=== PATIENT | female | born 1930 | race Caucasian/White ===

== ENCOUNTER → 2016-10-21 | Outpatient (CLI) | payer OTHER ==
[~2016-10-21] MED LIST: ALBU1AER9 INH; CETI10TA84 PO; CHON150C PO; LOSA100T65 PO; NUTRTAB48 PO; TPRSR/50 PO; TRAM-453 PO; TRIA37.5 PO; [UNRECOGNIZED DRUG - CODE] OPB
[2016-10-21 12:55] LABS: CALCIUM 9.2 mg/dl (8.5-10.1)
[2016-10-21 13:01] LABS: ALT/SGPT 18 U/L (12-78); BLOOD UREA NITROGEN 27 mg/dl (7-18); BUN/CREATININE RATIO 24.8 (10-20); CARBON DIOXIDE 31 mmol/L (21-32); CHLORIDE 106 mmol/L (98-107); CHOLESTEROL 147 mg/dl (0-200); GLUCOSE 91 mg/dl (70-99); POTASSIUM 4.2 mmol/L (3.5-5.1); SODIUM 142 mmol/L (136-145); TRIGLYCERIDES 88 mg/dl (0-150); VERY LOW DENSITY LIPOPROT CALC 18 mg/dl
[2016-10-21 13:12] LABS: ALB/GLOB RATIO 1.2 (0.9-2); ALKALINE PHOSPHATASE 86 U/L (45-117); AST/SGOT 21 U/L (15-37); CHOLESTEROL/HDL RATIO 2.7; HDL CHOLESTEROL 54 mg/dl; LDL CHOLESTEROL CALCULATED 75 mg/dl
--- NOTE | 2016-10-27 10:28 | CODING QUERY MEDICAL NECESSITY ---
SUPPORTING DIAGNOSIS NEEDED A supporting diagnosis is required for the test/procedure performed on this patient in order for us to be reimbursed by the patient's insurance. Please provide a supporting diagnosis for the following test/procedure listed below next to the test name along with your signature. *If there is no additional diagnosis for this patient that would support the following test/procedure please document that below next to the test/procedure. Test(s)/Procedure(s) that require a supporting diagnosis: DOS 10/21 * Vitamin D DIAGNOSIS: Provider Signature: Date: Thank you Angela Vieira [facility] Information Management Once completed, please kindly fax back to [phone] For questions please call [phone]
== END | disposition home or self-care (01) ==
LOC: C.LABPVFM 10:03
PROVIDERS: ATTEND Family Medicine
DX: I10 Essential (primary) hypertension (principal); M79.89 Other specified soft tissue disorders; Z13.220 Encounter for screening for lipoid disorders; Z13.21 Encounter for screening for nutritional disorder; Z13.29 Encounter for screening for other suspected endocrine disorder; M85.80 Other specified disorders of bone density and structure, unspecified site

== ENCOUNTER → 2016-11-17 | Outpatient (CLI) | payer OTHER ==
--- NOTE | 2016-11-17 15:49 | DIAGNOSTIC IMAGING REPORT ---
RIGHT SHOULDER MIN 2 VIEWS ROUTINE CLINICAL HISTORY: RIGHT SHOULDER STRAIN, RIGHT KNEE PAIN Right COMPARISON: None. DISCUSSION: Degenerative change glenohumeral joint. Moderate degenerative change acromioclavicular joint. Narrowing acromiohumeral space consistent with secondary degeneration of the rotator cuff. There is no evidence for soft tissue swelling. IMPRESSION: Generalized degenerative change. Thinning and deterioration of the rotator cuff. No acute bony abnormality Electronically signed by: Steve Hanna M.D. 11/17/2016 3:47 PM Dictated Date/Time: 11/17/2016 3:46 PM
--- NOTE | 2016-11-17 15:52 | DIAGNOSTIC IMAGING REPORT ---
RIGHT KNEE 3 VIEWS CLINICAL HISTORY: Fall with right knee pain. FINDINGS: AP, crosstable lateral, and sunrise views of the right knee are compared to study dated 09/17/2009. The skeletal structures are osteopenic. No fracture is seen. A right knee arthroplasty is in near anatomic alignment. There is been undersurface remodeling of the patella. No periprosthetic lucency is seen. No joint effusion is identified. The overlying soft tissues are within normal limits. IMPRESSION: No acute bony abnormality is identified in the right knee noting an arthroplasty in near-anatomic alignment. Electronically signed by: Ladarius Perkins M.D. 11/17/2016 3:51 PM Dictated Date/Time: 11/17/2016 3:49 PM
== END | disposition home or self-care (01) ==
LOC: C.RADPV 15:23
PROVIDERS: ATTEND Family Medicine
DX: S46.911A Strain of unspecified muscle, fascia and tendon at shoulder and upper arm level, right arm, initial encounter (principal); X58.XXXA Exposure to other specified factors, initial encounter; M25.561 Pain in right knee

== ENCOUNTER → 2016-12-18 | Outpatient (CLI) | payer OTHER ==
[2016-12-18 17:56] LABS: BLOOD UREA NITROGEN 32 mg/dl (7-18); BUN/CREATININE RATIO 28.9 (10-20); CALCIUM 8.9 mg/dl (8.5-10.1); CARBON DIOXIDE 28 mmol/L (21-32); CHLORIDE 108 mmol/L (98-107); GLUCOSE 85 mg/dl (70-99); POTASSIUM 4.7 mmol/L (3.5-5.1); SODIUM 142 mmol/L (136-145)
== END | disposition home or self-care (01) ==
LOC: C.LABPVFM 13:42
PROVIDERS: ATTEND Family Medicine
DX: M79.89 Other specified soft tissue disorders (principal)

== ENCOUNTER → 2016-12-20 | Outpatient (CLI) | payer OTHER | END | disposition home or self-care (01) | LOC: C.LABPVFM 15:13 | PROVIDERS: ATTEND Family Medicine | DX: M79.89 Other specified soft tissue disorders (principal) ==

== ENCOUNTER → 2017-04-26 | Outpatient (CLI) | payer OTHER ==
[2017-04-26 17:16] LABS: BASO % 0.2 %; BASO ABS # 0.02 K/uL (0-0.2); COMPLETE YES; EOS % 0.6 %; HEMATOCRIT 43.1 % (37-47); IG% 0.3 %; LYMPH % 18.2 %; LYMPH ABS # 1.94 K/uL (1.2-3.4); MEAN CELL VOLUME 93.5 fL (80-100); MEAN CORPUSCULAR HEMOGLOBIN 31.2 pg (25-34); MEAN CORPUSCULAR HGB CONC 33.4 g/dl (32-36); MEAN PLATELET VOLUME 11.7 fL (7.4-10.4); NEUT % 71.7 %; PLATELET COUNT 144 K/uL (130-400); RED BLOOD COUNT 4.61 M/uL (4.2-5.4); WHITE BLOOD COUNT 10.68 K/uL (4.8-10.8)
[2017-04-26 17:40] LABS: ALT/SGPT 16 U/L (12-78); BLOOD UREA NITROGEN 30 mg/dl (7-18); BUN/CREATININE RATIO 23.6 (10-20); CALCIUM 9.1 mg/dl (8.5-10.1); CARBON DIOXIDE 31 mmol/L (21-32); CHLORIDE 108 mmol/L (98-107); CREATININE 1.25 mg/dl (0.60-1.20); GLUCOSE 93 mg/dl (70-99); POTASSIUM 4.7 mmol/L (3.5-5.1); SODIUM 141 mmol/L (136-145)
[2017-04-26 17:43] LABS: ALB/GLOB RATIO 1.1 (0.9-2); ALKALINE PHOSPHATASE 80 U/L (45-117); AST/SGOT 20 U/L (15-37)
== END | disposition home or self-care (01) ==
LOC: C.LABPVFM 14:13
PROVIDERS: ATTEND Family Medicine
DX: N18.3 Chronic kidney disease, stage 3 (moderate) (principal)

== ENCOUNTER → 2017-09-21 | Outpatient (CLI) | payer OTHER ==
--- NOTE | 2017-09-21 13:59 | DIAGNOSTIC IMAGING REPORT ---
R HIP UNILATERAL 2 VIEWS CLINICAL HISTORY: Low back pain Right hip pain pain COMPARISON: None. DISCUSSION: Moderate degenerative change right hip joint space. No evidence for fracture or dislocation. No evidence for acetabular protrusion. Rounded calcification midline soft tissue pelvis potentially related to a bladder calculus. There is no evidence for soft tissue swelling. IMPRESSION: Moderate degenerative change right hip. No acute bony abnormality. Possible bladder calculus The above report was generated using voice recognition software. It may contain grammatical, syntax or spelling errors. Electronically signed by: Steve Hanna M.D. 09/21/2017 1:58 PM Dictated Date/Time: 09/21/2017 1:57 PM
--- NOTE | 2017-09-21 14:01 | DIAGNOSTIC IMAGING REPORT ---
L-SPINE MIN 4 VIEWS ROUTINE HISTORY: Pain Low back pain Right hip pain COMPARISON: None. FINDINGS: There is no fracture. Grade 1 anterolisthesis L5 on S1. This appears to be secondary to degenerative changes of the posterior elements. Mild degenerative disc changes throughout. No evidence for compression deformity. IMPRESSION: 1. Grade 1 anterolisthesis L5 on S1 secondary to degenerative changes posterior elements. 2. Mild degenerative disc change throughout the entire lumbar region. 3. No acute bony abnormality.. The above report was generated using voice recognition software. It may contain grammatical, syntax or spelling errors. Electronically signed by: Steve Hanna M.D. 09/21/2017 1:59 PM Dictated Date/Time: 09/21/2017 1:58 PM
== END | disposition home or self-care (01) ==
LOC: C.RADPV 13:34
PROVIDERS: ATTEND Family Medicine
DX: M54.5 Low back pain (principal); M25.551 Pain in right hip; M53.87 Other specified dorsopathies, lumbosacral region

== ENCOUNTER 2020-10-17 16:36 | Inpatient (IN) ==
[2020-10-17] MEDS ORDERED: SODIUM CHLORIDE 0.9% 1000ML 1,000 ML IV STA (17:00)
[2020-10-17] MEDS ORDERED: SODIUM CHLORIDE 0.9% 500 ML IV STA (17:00)
[2020-10-17] MEDS ORDERED: ACETAMINOPHEN 500 MG TAB PO STA (17:03)
--- NOTE | 2020-10-17 17:32 | Emergency Department Note ---
Impression & Plan Fever, Weakness, Acute UTI (urinary tract infection) ED Provider Note INFORMANT: Patient ED PROVIDER(S): Brock Buckner MD CHIEF COMPLAINT: Weakness PLAN: Disposition: Admitted Condition: Good Outpatient prescription management: none Referral: None MEDICAL DECISION MAKING: The patient has presented because of weakness. She has a fever. A work-up was obtained. She has a negative chest x-ray and Covid testing. Her laboratory testing reveals a mild leukocytosis. Chemistry panel unremarkable. Urinalysis concerning for infection. Patient was given IV Rocephin. She was treated with T ylenol. The patient was hydrated. She was feeling better on reassessment. Her ECG did not show any acute findings. Consultation was made with Dr. René Dalton of the [facility] service. Patient was evaluated in the ER for further management. Triage Nursing notes reviewed and agree them. Vital Signs: reviewed and remarkable for no significant abnormalities Differential diagnosis: Infection, dehydration, metabolic abnormality, hypo/hyperglycemia, electrolyte disturbance, anemia, hypoxia, cardiac sources, intracerebral event, toxicologic, neurologic, as well as other pathologies. Diagnostics interpreted by me: ECG: Twelve-lead ECG reveals sinus rhythm with PACs at 81 bpm. Septal Q waves present. Nonspecific ST abnormal. No ST elevation. Normal axis. Cardiac Monitoring: Cardiac monitoring ordered by me: The patient was placed on continuous cardiac monitoring and observed. It revealed a normal sinus rhythm at 80 beats per minute without ectopy or evidence of dysrhythmia. Imaging studies: Chest x-ray. Findings: A chest x-ray was performed and revealed no pneumothorax, effusion, infiltrate, pulmonary edema, free air under the diaphragm, or wide mediastinum. Impression: No acute disease. HPI: The patient is a 89 year old female who presents to the Emergency Room with complaints of fever. This started 2 days ago and is persisting. The patient also notes the following associated symptoms, generalized illness, weakness, fatigue, lack of appetite. The patient has taken Tylenol this morning for relieving factors. Current pain is rated as 0/10. Patient has had her Covid vaccination series. No known sick contacts. Pt denies LOC, headache, diaphoresis, visual changes, neck pain, chest pain, breathing difficulties, nausea, vomiting, abdominal pain, back pain, diarrhea, urinary symptoms, numbness, weakness, lymphadenopathy, rash, or other complaints. ROS: See above HPI for pertinent positives & negatives. A total of 10 systems reviewed and were otherwise negative. PAST MEDICAL HISTORY:See Below , hypertension PAST SURGICAL HISTORY:See Below, FAMILY HISTORY:See Below SOCIAL HISTORY:See Below, lives with family HOME MEDICATIONS:See Below ALLERGIES:See Below VITALS:See Below PHYSICAL EXAMINATION: GENERAL: Awake, alert, tired-appearing, in no distress HENT: Normocephalic, atraumatic. Oropharynx unremarkable. EYES: Normal conjunctiva. Sclera non-icteric. NECK: Inspection normal. Non-tender. Supple. No nuchal rigidity. FROM. No masses. RESPIRATORY: Clear to auscultation. No wheezes. No rales. Normal respiratory effort. CARDIAC: Normal rate. Normal rhythm. No murmurs. No rubs. Extremities warm and well perfused. Pulses equal. No JVD. GI: Soft, non-distended. No tenderness to palpation. No rebound or guarding. No masses. RECTAL: Deferred. MUSCULOSKELETAL: Atraumatic. Chest examination reveals no tenderness. The back is symmetrical on inspection without obvious abnormality. There is no CVA tender ness to palpation. No joint edema. LOWER EXTREMITIES: Calves are equal size bilaterally and non-tender. 1+ edema. No discoloration. NEURO: Normal sensorium. Generally weak but no focal sensory or motor deficits noted. SKIN: No rash or jaundice noted. 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 Beliefs That Will Affect Care: None marital status: Current Living Situation: Family Current Living Situation Comment: Lives with Grandson current occupational status: retired Feels Safe at Home: Yes Safety Concerns: Feels Safe At This Time caffeine: No Dental Care, Regularly: No Physical Activity Frequency: Does not Exercise Seatbelt Use: always Sunscreen Use: No Assistive Devices: Walker Allergies Allergies Allergy/AdvReac Type Severity Reaction Status Date / Time Sulfa (Sulfonamide Allergy Unknown HIVES Verified 10/17/20 17:58 Antibiotics) indomethacin AdvReac Unknown SEVERE Verified 10/17/20 17:58 HEADACHE Home Meds Home Medications Medication Instructions Recorded Confirmed aspirin 81 mg tablet,delayed 81 mg PO QAM tab 03/10/19 10/17/20 release krill oil 500 mg capsule 500 mg PO QAM cap 03/10/19 10/17/20 timolol maleate 1 drp OPB QAM 08/20/19 10/17/20 timolol maleate 1 drp OPL HS 08/20/19 10/17/20 gabapentin 300 mg PO AMPM 10/17/20 10/17/20 Previous Rx's Medication Instructions Recorded losartan 100 mg tablet 100 mg PO QAM #90 tab 07/26/20 metoprolol succinate 50 mg 50 mg PO QAM #90 tab 07/26/20 tablet,extended release 24 hr triamterene 37.5 0.5 tab PO QAM #45 tab 07/26/20 mg-hydrochlorothiazide 25 mg tablet Results & Data (ED) Vital Signs Vital Signs - 24 hr 10/17/20 16:49 10/17/20 18:01 10/17/20 18:31 Temperature 37.4 C Temperature Source Oral Pulse Rate 76 78 74 Pulse Rate from SpO2 Sensor Respiratory Rate 18 23 17 Respiratory Effort / Characteristics Non-Labored Respiratory Depth Normal Blood Pressure 193/90 H 157/71 H 178/66 H Blood Pressure Mean 124 99 103 Pulse Oximetry 95 94 93 Oxygen Delivery Method Room Air Sepsis Recent Fever Within 48 Hours Yes Sepsis New/Unexplained Change in Mental Status No Sepsis Action Taken by Nursing No Action Required 10/17/20 19:00 10/17/20 19:01 10/17/20 19:14 Temperature 37.2 C Temperature Source Pulse Rate 81 77 Pulse Rate from SpO2 Sensor 77 Respiratory Rate 20 27 H Respiratory Effort / Characteristics Respiratory Depth Blood Pressure 174/79 H 174/79 H Blood Pressure Mean 110 110 Pulse Oximetry 94 93 Oxygen Delivery Method Sepsis Recent Fever Within 48 Hours Sepsis New/Unexplained Change in Mental Status Sepsis Action Taken by Nursing 10/17/20 19:31 Temperature Temperature Source Pulse Rate 80 Pulse Rate from SpO2 Sensor 78 Respiratory Rate 24 Respiratory Effort / Characteristics Respiratory Depth Blood Pressure 152/72 H Blood Pressure Mean 98 Pulse Oximetry 93 Oxygen Delivery Method Sepsis Recent Fever Within 48 Hours Sepsis New/Unexplained Change in Mental Status Sepsis Action Taken by Nursing Laboratory Data Result diagrams: 10/17/20 17:25 10/17/20 17:25 Lab Results 10/17/20 10/17/20 10/17/20 Range/Units 17:25 17:25 17:25 WBC 11.80 H (4.8-10.8) K/uL RBC 4.50 (4.2-5.4) M/uL Hgb 14.4 (12.0-16.0) g/dL Hct 41.6 (37-47) % MCV 92.4 (80-100) fL MCH 32.0 (25-34) pg MCHC 34.6 (32-36) g/dL RDW Std Deviation 44.2 (36.4-46.3) fL RDW Coeff of Irina 12.9 (11.5-14.5) % Plt Count 132 (130-400) K/uL MPV 12.2 H (7.4-10.4) fL Immature Gran % (Auto) 0.2 % Neut % (Auto) 79.4 % Lymph % (Auto) 10.7 % [place] % (Auto) 9.3 % Eos % (Auto) 0.2 % Baso % (Auto) 0.2 % Neut # (Auto) 9.38 H (1.4-6.5) K/uL Lymph # (Auto) 1.26 (1.2-3.4) K/uL [place] # (Auto) 1.10 H (0.11-0.59) K/uL Eos # (Auto) 0.02 (0-0.5) K/uL Baso # (Auto) 0.02 (0-0.2) K/uL Immature Gran # (Auto) 0.02 (0.00-0.02) K/uL Sodium 138 (136-145) mmol/L Potassium 3.9 (3.5-5.1) mmol/L Chloride 103 (98-107) mmol/L Carbon Dioxide 29 (21-32) mmol/L Anion Gap 5.0 (3-11) BUN 25 H (7-18) mg/dl Creatinine 1.14 (0.6-1.2) mg/dl Est Cr Clr Drug Dosing 39.6 ml/min Est GFR ( Amer) 49.7 Est GFR (Non-Af Amer) 42.9 BUN/Creatinine Ratio 22.1 H (10-20) Glucose 108 H (70-99) mg/dl Lactate (0.4-2.0) mmol/L Calcium 8.9 (8.5-10.1) mg/dl Total Bilirubin 1.2 H (0.2-1) mg/dl AST 13 L (15-37) U/L ALT 12 (12-78) U/L Alkaline Phosphatase 86 (45-117) U/L Troponin I < 0.015 (0-0.045) ng/ml Total Protein 7.2 (6.4-8.2) gm/dl Albumin 3.4 (3.4-5.0) gm/dl Globulin 3.8 (2.5-4.0) gm/dl Albumin/Globulin Ratio 0.9 (0.9-2) Urine Color Urine Appearance (Clear) Urine pH (4.5-7.5) Ur Specific [place] (1.000-1.030) Urine Protein (Negative) Urine Glucose (UA) (Negative) Urine Ketones (Negative) Urine Blood (Negative) Urine Nitrite (Negative) Urine Bilirubin (Negative) Urine Urobilinogen (Negative) Ur Leukocyte Esterase (Negative) Urine WBC (Auto) (0-5) /hpf Urine RBC (Auto) (0-4) /hpf U Hyaline Cast (Auto) (0-5) /lpf U Epithel Cells (Auto) (0-5) /lpf Urine Bacteria (Auto) (Negative) Urine Yeast COVID-19 Eval Order CovFluRsv at [facility] SARS-CoV-2 (PCR) (Negative) Influenza Type A (PCR) (Neg) Influenza Type B (PCR) (Neg) RSV (RT-PCR) (Neg) 10/17/20 10/17/20 10/17/20 Range/Units 17:25 17:42 18:15 WBC (4.8-10.8) K/uL RBC (4.2-5.4) M/uL Hgb (12.0-16.0) g/dL Hct (37-47) % MCV (80-100) fL MCH (25-34) pg MCHC (32-36) g/dL RDW Std Deviation (36.4-46.3) fL RDW Coeff of Irina (11.5-14.5) % Plt Count (130-400) K/uL MPV (7.4-10.4) fL Immature Gran % (Auto) % Neut % (Auto) % Lymph % (Auto) % [place] % (Auto) % Eos % (Auto) % Baso % (Auto) % Neut # (Auto) (1.4-6.5) K/uL Lymph # (Auto) (1.2-3.4) K/uL [place] # (Auto) (0.11-0.59) K/uL Eos # (Auto) (0-0.5) K/uL Baso # (Auto) (0-0.2) K/uL Immature Gran # (Auto) (0.00-0.02) K/uL Sodium (136-145) mmol/L Potassium (3.5-5.1) mmol/L Chloride (98-107) mmol/L Carbon Dioxide (21-32) mmol/L Anion Gap (3-11) BUN (7-18) mg/dl Creatinine (0.6-1.2) mg/dl Est Cr Clr Drug Dosing ml/min Est GFR ( Amer) Est GFR (Non-Af Amer) BUN/Creatinine Ratio (10-20) Glucose (70-99) mg/dl Lactate 1.0 (0.4-2.0) mmol/L Calcium (8.5-10.1) mg/dl Total Bilirubin (0.2-1) mg/dl AST (15-37) U/L ALT (12-78) U/L Alkaline Phosphatase (45-117) U/L Troponin I (0-0.045) ng/ml Total Protein (6.4-8.2) gm/dl Albumin (3.4-5.0) gm/dl Globulin (2.5-4.0) gm/dl Albumin/Globulin Ratio (0.9-2) Urine Color Yellow Urine Appearance Cloudy A (Clear) Urine pH 5.0 (4.5-7.5) Ur Specific [place] 1.018 (1.000-1.030) Urine Protein Trace H (Negative) Urine Glucose (UA) Negative (Negative) Urine Ketones Negative (Negative) Urine Blood 1+ H (Negative) Urine Nitrite Positive A (Negative) Urine Bilirubin Negative (Negative) Urine Urobilinogen Negative (Negative) Ur Leukocyte Esterase 2+ H (Negative) Urine WBC (Auto) >30 H (0-5) /hpf Urine RBC (Auto) 0-4 (0-4) /hpf U Hyaline Cast (Auto) 1-5 (0-5) /lpf U Epithel Cells (Auto) 0-5 (0-5) /lpf Urine Bacteria (Auto) 4+ H (Negative) Urine Yeast Not Reportable COVID-19 Eval Order SARS-CoV-2 (PCR) NEGATIVE (Negative) Influenza Type A (PCR) Negative (Neg) Influenza Type B (PCR) Negative (Neg) RSV (RT-PCR) Negative (Neg) Administered Medications Gabapentin (Gabapentin 300 Mg Cap) 300 mg PO BID SANCHO Stop: 11/16/20 21:06 Last Admin: 10/17/20 21:35 Dose: 300 mg Documented by: [id number] Potassium Chloride/Sodium Chloride (Normal Saline W/20 Meq Kcl) 20 meq in 1,000 mls @ 80 mls/hr IV .[id number] SANCHO Stop: 11/16/20 21:06 Last Admin: 10/17/20 21:39 Dose: 80 mls/hr Documented by: [id number] Timolol Maleate (Timolol Gfs 0.5% Oph Soln 74 Drops/5 Ml Btl) 1 drops OPL HS SANCHO Stop: 11/16/20 21:29 Last Admin: 10/17/20 21:36 Dose: 1 drops Documented by: [id number] Discontinued Medications Acetaminophen (Acetaminophen 500 Mg Tab) 1,000 mg PO NOW STA Stop: 10/17/20 17:04 Last Admin: 10/17/20 17:45 Dose: 1,000 mg Documented by: [id number] Sodium Chloride (Nss 1000ml) 1,000 mls @ 125 mls/hr IV .Q8H STA Stop: 10/18/20 00:59 Last Infusion: 10/17/20 21:21 Dose: 0 mls/hr Documented by: [id number] Admin: 10/17/20 18:18 Dose: 125 mls/hr Documented by: [id number] Sodium Chloride (Nss) 500 mls @ 999 mls/hr IV .Q31M STA Stop: 10/17/20 17:30 Last Infusion: 10/17/20 19:15 Dose: 0 mls/hr Documented by: [id number] Admin: 10/17/20 18:18 Dose: 999 mls/hr Documented by: [id number] Ceftriaxone Sodium (Rocephin) 2,000 mg in 70 mls @ 140 mls/hr IV NOW STA Stop: 10/17/20 19:08 Last Infusion: 10/17/20 20:00 Dose: 0 mls/hr Documented by: [id number] Admin: 10/17/20 19:11 Dose: 140 mls/hr Documented by: [id number] Imaging Data Radiologist's Impression: Chest X-Ray 10/17/20 17:00 XR chest 1V portable CLINICAL HISTORY: Fever COMPARISON STUDY: 08/20/2019 FINDINGS: The heart is enlarged. There is a retrocardiac opacity consistent with a large hiatal hernia. There is no lobar consolidation. There is no overt failure. There is mild interstitial thickening with a basilar predominance.[There is a 14 mm right perihilar nodule versus summation. IMPRESSION: 1. Persistent cardiomegaly and large hiatal hernia. No evidence of acute parenchymal consolidation 2. 14 mm right perihilar nodule versus summation. Short-term follow-up recommended. ACT 112: Negative or not required by law. Electronically signed by: Elier Sahni M.D. 10/17/2020 6:00 PM Discharge Plan Visit Data Chief Complaint: Illness Stated Complaint: ILLNESS, FEVER, CONFUSION ED Provider: Brock Buckner Discharge Problem: Fever, Weakness, Acute UTI (urinary tract infection) Patient Disposition: Admitted As Inpatient Discharge Instructions Interventions: ED Discharge Assessment Last Done: 10/17/20 20:45
[2020-10-17 17:42] LABS: Basophils # (auto) 0.02 K/uL (0-0.2); Basophils % (auto) 0.2 %; Eosinophils # (auto) 0.02 K/uL (0-0.5); Eosinophils % (auto) 0.2 %; Hematocrit (blood only) 41.6 % (37-47); Hemoglobin 14.4 g/dL (12.0-16.0); Immature Granulocytes # (auto) 0.02 K/uL (0.00-0.02); Immature Granulocytes % (auto) 0.2 %; Lymphocytes # (auto) 1.26 K/uL (1.2-3.4); Lymphocytes % (auto) 10.7 %; Mean Corpuscular Hgb Conc 34.6 g/dL (32-36); Mean Corpuscular Volume 92.4 fL (80-100); Mean Platelet Volume 12.2 fL (7.4-10.4); Monocytes % (auto) 9.3 %; Neutrophils # (auto) 9.38 K/uL (1.4-6.5); Neutrophils % (auto) 79.4 %; Platelet Count 132 K/uL (130-400); RDW Coefficient of Variation 12.9 % (11.5-14.5); RDW Standard Deviation 44.2 fL (36.4-46.3)
--- NOTE | 2020-10-17 18:01 | XRay Report ---
XR chest 1V portable CLINICAL HISTORY: Fever COMPARISON STUDY: 08/20/2019 FINDINGS: The heart is enlarged. There is a retrocardiac opacity consistent with a large hiatal herni a. There is no lobar consolidation. There is no overt failure. There is mild interstitial thickening with a basilar predominance.[There is a 14 mm right perihilar nodule versus summation. IMPRESSION: 1. Persistent cardiomegaly and large hiatal hernia. No evidence of acute parenchymal consolidation 2. 14 mm right perihilar nodule versus summation. Short-term follow-up recommended. ACT 112: Negative or not required by law. Electronically signed by: Elier Sahni M.D. 10/17/2020 6:00 PM
[2020-10-17 18:02] LABS: Alanine Aminotransferase 12 U/L (12-78); Albumin Level 3.4 gm/dl (3.4-5.0); Aspartate Aminotransferase 13 U/L (15-37); BUN Creatinine Ratio 22.1 (10-20); Blood Urea Nitrogen 25 mg/dl (7-18); Calcium 8.9 mg/dl (8.5-10.1); Carbon Dioxide 29 mmol/L (21-32); Chloride 103 mmol/L (98-107); Creatinine Clr Calc Pharmacy 39.6 ml/min; Est GFR (African American) 49.7; Est GFR (Non-African American) 42.9; Glucose 108 mg/dl (70-99); Potassium 3.9 mmol/L (3.5-5.1); Sodium 138 mmol/L (136-145)
[2020-10-17 18:06] LABS: Albumin Globulin Ratio 0.9 (0.9-2); Alkaline Phosphatase 86 U/L (45-117); Bilirubin,Total 1.2 mg/dl (0.2-1); Globulin 3.8 gm/dl (2.5-4.0); Total Protein 7.2 gm/dl (6.4-8.2); Troponin I < 0.015 ng/ml (0-0.045)
[2020-10-17 18:25] LABS: Appearance Urine Cloudy (Clear); Bacteria Urine Automated 4+ (Negative); Bilirubin Urine Negative (Negative); Blood Urine 1+ (Negative); Color Urine Yellow; Epithelial Cell Urine Auto 0-5 /lpf (0-5); Glucose Urine UA Negative (Negative); Ketones Urine Negative (Negative); Leukocyte Esterase Urine 2+ (Negative); Nitrite Urine Positive (Negative); Protein Urine Trace (Negative); RBC Urine Automated 0-4 /hpf (0-4); Specific Gravity Urine 1.018 (1.000-1.030); Urobilinogen Urine Negative (Negative); WBC Urine Automated >30 /hpf (0-5)
[2020-10-17 18:34] LABS: Influenza A virus by PCR Negative (Neg); Influenza B virus by PCR Negative (Neg); RSV by PCR Negative (Neg); SARS CoV2 RNA(COVID-19) InHosp NEGATIVE (Negative)
[2020-10-17] MEDS ORDERED: cefTRIAXone SODIUM 2,000 MG/70 ML BAG IV STA (18:39)
--- NOTE | 2020-10-17 19:50 | History & Physical Report ---
Date of Service October 17, 2020 Assessment & Plan (1) Acute UTI (urinary tract infection): Urinary tract infection/generalized weakness and fever- History of previous UTIs with pansensitive E. coli. Follow urine culture and sensitivity Ceftriaxone 2 g IV daily NSS + KCl 20 mEq at 80 mils per hour x2 L Present on Admission?: Yes (2) Weakness: See above Present on Admission?: Yes (3) Fever: See above Present on Admission?: Yes (4) Tic douloureux: Continue gabapentin Present on Admission?: Yes (5) HTN (hypertension): Hold triamterene/HCTZ. Continue metoprolol succinate and losartan with hold parameters Present on Admission?: Yes (6) Glaucoma: Continue timolol maleate eyedrops as outpatient prescribed Present on Admission?: Yes History of Present Illness Chief Complaint: The patient presents to the emergency department with complaint of generalized weakness, fever urinary frequency and painful urination of 5 days duration Primary Care Provider: Consuelo Ambriz MD The patient is an 89-year-old female with a past medical history including tremor, constipation, arthritis, tic douloureux, kidney stone, asthma, hypertension, glaucoma and 2 previous UTIs with pansensitive E. coli on 02/12/2019 and 08/20/2019. Allergies Allergy/AdvReac Type Severity Reaction Status Date / Time Sulfa (Sulfonamide Allergy Unknown HIVES Verified 10/17/20 17:58 Antibiotics) indomethacin AdvReac Unknown SEVERE Verified 10/17/20 17:58 HEADACHE Home Medications Medication Instructions Recorded Confirmed Type aspirin 81 mg tablet,delayed 81 mg PO QAM tab 03/10/19 10/17/20 History release krill oil 500 mg capsule 500 mg PO QAM cap 03/10/19 10/17/20 History timolol maleate 1 drp OPB QAM 08/20/19 10/17/20 History timolol maleate 1 drp OPL HS 08/20/19 10/17/20 History losartan 100 mg tablet 100 mg PO QAM #90 tab 07/26/20 10/17/20 Rx metoprolol succinate 50 mg 50 mg PO QAM #90 tab 07/26/20 10/17/20 Rx tablet,extended release 24 hr triamterene 37.5 0.5 tab PO QAM #45 tab 07/26/20 10/17/20 Rx mg-hydrochlorothiazide 25 mg tablet gabapentin 300 mg PO AMPM 10/17/20 10/17/20 History Past Med/Surg History Medical History Arthritis Bronchitis Cataract PNA (pneumonia) Surgical History H/O tubal ligation Hx of cataract surgery Hx of vaginal hysterectomy S/P knee replacement Family History Sister Breast cancer Father Colorectal cancer Mother Hypertension Denies family history of Ovarian cancer Prostate cancer Diabetes Myocardial infarction Lung cancer Stroke Social History Smoking Status: Former smoker Tobacco Type: Cigarettes Second Hand Exposure: Yes; Hx Alcohol Use: No Hx Substance Use: No Preferred Language: Nigerien Communication Ability: Effective Mule Spinner Required: No Beliefs That Will Affect Care: None marital status: Current Living Situation: Family Current Living Situation Comment: Lives with Grandson current occupational status: retired Feels Safe at Home: Yes Safety Concerns: Feels Safe At This Time caffeine: No Dental Care, Regularly: No Physical Activity Frequency: Does not Exercise Seatbelt Use: always Sunscreen Use: No Assistive Devices: Walker Review of Systems Review of Systems: The patient denies chest pain, palpitations, shortness of breath, dyspnea on exertion, cough, lower extremity swelling, sore throat, fevers, chills, sweats, nausea, vomiting, diarrhea , constipation, blood in urine or stool lightheadedness, dizziness, headache, memory loss, loss of consciousness, rash, abnormal bruising or bleeding, imbalance, focal weakness, numbness or tingling in arms or legs, generalized arthralgias or myalgias, back or neck pain, or night sweats. The review of systems is otherwise negative other than for that already noted above, and at least 10 systems have been reviewed. Physical Exam Physical Exam: The patient is awake, alert and oriented 3, well developed and well nourished, normocephalic and atraumatic, lying in bed and in no acute distress. HEENT--PERRL, EOMI, mucous membranes and oropharynx dry. Neck--supple. No JVD. No bruits. Thyroid normal, trachea midline, no adenopathy. Heart--normal S1 and S2. No murmurs, rubs or gallops. Lungs--clear bilaterally, no respiratory distress, no accessory muscle use. Abdomen--normal bowel sounds and soft. Nontender. Nondistended. Morbidly obese Extremities--no cyanosis or clubbing. No edema. Dermatologic--normal skin turgor, normal color, no abnormal lymph nodes, no rash. Neurologic--cranial nerves II through XII grossly intact. Rheumatologic--normal range of motion. Psychiatric--normal affect. Results & Data Results & Data ([place]) Vital Signs (Past 12 Hours) Vital Signs Temp Pulse Resp BP Pulse Ox 10/17/20 19:14 99.0 F 10/17/20 19:01 77 27 H 174/79 H 93 10/17/20 19:00 81 20 174/79 H 94 10/17/20 18:31 74 17 178/66 H 93 10/17/20 18:01 78 23 157/71 H 94 10/17/20 16:49 99.3 F 76 18 193/90 H 95 Laboratory Results Laboratory Results WBC 11.80 K/uL (4.8-10.8) H 10/17/20 17:25 RBC 4.50 M/uL (4.2-5.4) 10/17/20 17:25 Hgb 14.4 g/dL (12.0-16.0) 10/17/20 17:25 Hct 41.6 % (37-47) 10/17/20 17:25 MCV 92.4 fL (80-100) 10/17/20 17:25 MCH 32.0 pg (25-34) 10/17/20 17:25 MCHC 34.6 g/dL (32-36) 10/17/20 17:25 RDW Std Deviation 44.2 fL (36.4-46.3) 10/17/20 17:25 RDW Coeff of Irina 12.9 % (11.5-14.5) 10/17/20 17:25 Plt Count 132 K/uL (130-400) 10/17/20 17:25 MPV 12.2 fL (7.4-10.4) H 10/17/20 17:25 Immature Gran % (Auto) 0.2 % 10/17/20 17:25 Neut % (Auto) 79.4 % 10/17/20 17:25 Lymph % (Auto) 10.7 % 10/17/20 17:25 [facility] % (Auto) 9.3 % 10/17/20 17:25 Eos % (Auto) 0.2 % 10/17/20 17:25 Baso % (Auto) 0.2 % 10/17/20 17:25 Neut # (Auto) 9.38 K/uL (1.4-6.5) H 10/17/20 17:25 Lymph # (Auto) 1.26 K/uL (1.2-3.4) 10/17/20 17:25 [facility] # (Auto) 1.10 K/uL (0.11-0.59) H 10/17/20 17:25 Eos # (Auto) 0.02 K/uL (0-0.5) 10/17/20 17:25 Baso # (Auto) 0.02 K/uL (0-0.2) 10/17/20 17:25 Immature Gran # (Auto) 0.02 K/uL (0.00-0.02) 10/17/20 17:25 Sodium 138 mmol/L (136-145) 10/17/20 17:25 Potassium 3.9 mmol/L (3.5-5.1) 10/17/20 17:25 Chloride 103 mmol/L (98-107) 10/17/20 17:25 Carbon Dioxide 29 mmol/L (21-32) 10/17/20 17:25 Anion Gap 5.0 (3-11) 10/17/20 17:25 BUN 25 mg/dl (7-18) H 10/17/20 17:25 Creatinine 1.14 mg/dl (0.6-1.2) 10/17/20 17:25 Est Cr Clr Drug Dosing 39.6 ml/min 10/17/20 17:25 Est GFR ( Amer) 49.7 10/17/20 17:25 Est GFR (Non-Af Amer) 42.9 10/17/20 17:25 BUN/Creatinine Ratio 22.1 (10-20) H 10/17/20 17:25 Glucose 108 mg/dl (70-99) H 10/17/20 17:25 Lactate 1.0 mmol/L (0.4-2.0) 10/17/20 17:42 Calcium 8.9 mg/dl (8.5-10.1) 10/17/20 17:25 Total Bilirubin 1.2 mg/dl (0.2-1) H 10/17/20 17:25 AST 13 U/L (15-37) L 10/17/20 17:25 ALT 12 U/L (12-78) 10/17/20 17:25 Alkaline Phosphatase 86 U/L (45-117) 10/17/20 17:25 Troponin I < 0.015 ng/ml (0-0.045) 10/17/20 17:25 Total Protein 7.2 gm/dl (6.4-8.2) 10/17/20 17:25 Albumin 3.4 gm/dl (3.4-5.0) 10/17/20 17:25 Globulin 3.8 gm/dl (2.5-4.0) 10/17/20 17:25 Albumin/Globulin Ratio 0.9 (0.9-2) 10/17/20 17:25 Urine Color Yellow 10/17/20 18:15 Urine Appearance Cloudy (Clear) A 10/17/20 18:15 Urine pH 5.0 (4.5-7.5) 10/17/20 18:15 Ur Specific [place] 1.018 (1.000-1.030) 10/17/20 18:15 Urine Protein Trace (Negative) H 10/17/20 18:15 Urine Glucose (UA) Negative (Negative) 10/17/20 18:15 Urine Ketones Negative (Negative) 10/17/20 18:15 Urine Blood 1+ (Negative) H 10/17/20 18:15 Urine Nitrite Positive (Negative) A 10/17/20 18:15 Urine Bilirubin Negative (Negative) 10/17/20 18:15 Urine Urobilinogen Negative (Negative) 10/17/20 18:15 Ur Leukocyte Esterase 2+ (Negative) H 10/17/20 18:15 Urine WBC (Auto) >30 /hpf (0-5) H 10/17/20 18:15 Urine RBC (Auto) 0-4 /hpf (0-4) 10/17/20 18:15 U Hyaline Cast (Auto) 1-5 /lpf (0-5) 10/17/20 18:15 U Epithel Cells (Auto) 0-5 /lpf (0-5) 10/17/20 18:15 Urine Bacteria (Auto) 4+ (Negative) H 10/17/20 18:15 Urine Yeast Not Reportable 10/17/20 18:15 COVID-19 Eval Order CovFluRsv at [facility] 10/17/20 17:25 SARS-CoV-2 (PCR) NEGATIVE (Negative) 10/17/20 17:25 Influenza Type A (PCR) Negative (Neg) 10/17/20 17:25 Influenza Type B (PCR) Negative (Neg) 10/17/20 17:25 RSV (RT-PCR) Negative (Neg) 10/17/20 17:25 Impressions Chest X-Ray 10/17/20 17:00 XR chest 1V portable CLINICAL HISTORY: Fever COMPARISON STUDY: 08/20/2019 FINDINGS: The heart is enlarged. There is a retrocardiac opacity consistent with a large hiatal hernia. There is no lobar consolidation. There is no overt failure. There is mild interstitial thickening with a basilar predominance.[There is a 14 mm right perihilar nodule versus summation. IMPRESSION: 1. Persistent cardiomegaly and large hiatal hernia. No evidence of acute parenchymal consolidation 2. 14 mm right perihilar nodule versus summation. Short-term follow-up recommended. ACT 112: Negative or not required by law. Electronically signed by: Elier Sahni M.D. 10/17/2020 6:00 PM Code Status & VTE Plan Code Status Full code VTE Prophylaxis Plan VTE Prophylaxis will be ordered: Yes PG Care Time/CCT Total # of Minutes Spent Total Time Spent with Patient: Total time spent is greater than 50% in coordination of care (as documented) at patient's floor/unit and/or counseling patient: Coding Level of Care Code 42840 OBS Care - Level 3 Diagnoses Acute UTI (urinary tract infection) N39.0 Weakness R53.1 Fever R50.9 Tic douloureux G50.0 HTN (hypertension) I10 Glaucoma H40.9
[2020-10-17] MEDS ORDERED: ONDANSETRON INJ 2 MG/ML 2 ML VIAL IV PRN (21:07)
[2020-10-17] MEDS ORDERED: ACETAMINOPHEN 325 MG TAB PO PRN (21:07)
[2020-10-17] MEDS: GABAPENTIN 300 MG CAP PO SCH (21:35)
[2020-10-17] MEDS: TIMOLOL GFS 0.5% OPH SOLN 74 DROPS/5 ML BTL OPL SCH (21:36)
[2020-10-17] MEDS: NSS + 20MEQ KCL 20 MEQ/1,000 ML BAG IV SCH (21:39)
[2020-10-18 07:21] LABS: Basophils # (auto) 0.01 K/uL (0-0.2); Basophils % (auto) 0.1 %; Eosinophils # (auto) 0.01 K/uL (0-0.5); Eosinophils % (auto) 0.1 %; Hemoglobin 12.9 g/dL (12.0-16.0); Immature Granulocytes # (auto) 0.04 K/uL (0.00-0.02); Immature Granulocytes % (auto) 0.3 %; Lymphocytes # (auto) 1.32 K/uL (1.2-3.4); Lymphocytes % (auto) 10.8 %; Mean Corpuscular Hemoglobin 31.3 pg (25-34); Mean Corpuscular Hgb Conc 33.9 g/dL (32-36); Mean Corpuscular Volume 92.2 fL (80-100); Mean Platelet Volume 12.4 fL (7.4-10.4); Neutrophils # (auto) 9.73 K/uL (1.4-6.5); Neutrophils % (auto) 79.7 %; Platelet Count 111 K/uL (130-400); Platelet Estimate Decreased (Normal); RDW Coefficient of Variation 12.9 % (11.5-14.5); RDW Standard Deviation 43.8 fL (36.4-46.3); Red Blood Count 4.12 M/uL (4.2-5.4); White Blood Count 12.21 K/uL (4.8-10.8)
[2020-10-18 07:25] LABS: Albumin Level 2.6 gm/dl (3.4-5.0); BUN Creatinine Ratio 20.9 (10-20); Calcium 8.4 mg/dl (8.5-10.1); Creatinine Clr Calc Pharmacy 48.3 ml/min; Est GFR (African American) 63.6; Est GFR (Non-African American) 54.9; Potassium 3.6 mmol/L (3.5-5.1)
[2020-10-18 07:31] LABS: Albumin Globulin Ratio 0.8 (0.9-2); Bilirubin,Total 0.9 mg/dl (0.2-1); Globulin 3.2 gm/dl (2.5-4.0); Total Protein 5.8 gm/dl (6.4-8.2)
--- NOTE | 2020-10-18 07:53 | Hospitalist Progress Note ---
Date of Service October 18, 2020 Assessment & Plan (1) Acute UTI (urinary tract infection): * Changed to full admission * Urinary tract infection/generalized weakness and fever- * History of previous UTIs with pansensitive E. coli. * Urine culture with gram negative bacilli -- follow c/s * Continued ceftriaxone IV daily (on day 2 of therapy) * NS + 20K @ 80cc/hr to complete 2 liters total * WBC unchanged, slightly higher (?atelectasis as well contributing given CXR/cough) * --> Repeat CXR in AM. Add atypical coverage if needed * Labs in AM (2) Weakness: * See above * Added PT/OT evals (3) Fever: * See above -- secondary to UTI +/- atelectasis/pneumonia * Repeating CXR as above now that added incentive spirometer * No wheezing/shortness of breath reported * No further fevers during admission (4) Tic douloureux: * Stable * Continue gabapentin (5) HTN (hypertension): * Holding triamterene/HCTZ. * Continue metoprolol succinate and losartan with hold parameters * BP 162/72 * Continue to monitor (6) Glaucoma: * Continue timolol maleate eyedrops as outpatient prescribed Hiatal Hernia * hx of, noted. will add Protonix 40mg daily. continue to monitor DVT Prophylaxis * Lovenox SQ while inpatient Dispo: continued inpatient stay Admission and Anticipated Discharge Date Admission Date: October 17, 2020 Supervising Physician Co-Signing Physician Notes PA Supervision Note: I did not personally see or examine the patient today, but I verified all bynum points of MARLIN Smyth's assessment and plan with the following exceptions/additions: None Subjective Patient evaluated this afternoon. Feeling well. Urinary symptoms improved. Does have a cough but after eating -- hx hiatal hernia and she states she typically can only eat smaller meals at a time. Discussed atelectasis vs pneumonia and to continue to use incentive spirometer to prevent pneumonia. No fever, chills, shortness of breath noted. Review of Systems Review of Systems: All systems reviewed & are unremarkable except as noted in HPI & below Physical Exam Physical Exam: The patient is awake, alert and oriented 3, well developed and well nourished, normocephalic and atraumatic,sitting up in chair. no acute distress. HEENT--PERRL, EOMI, mucous membranes and oropharynx slightly dry. Neck--supple. No JVD. No bruits. Thyroid normal, trachea midline, no adenopathy. Heart--normal S1 and S2. +S4 No murmurs, rubs. Lungs--clear bilaterally, no respiratory distress, no accessory muscle use. bibasilar crackles. no wheezes/rhonchi Abdomen--normal bowel sounds and soft. Nontender. Nondistended. Morbidly obese Extremities--no cyanosis or clubbing. No edema. Dermatologic--normal skin turgor, normal color, no abnormal lymph nodes, no rash. Neurologic--cranial nerves II through XII grossly intact. Rheumatologic--normal range of motion. Psychiatric--normal affect. Results & Data Results & Data ([facility]) Vital Signs (Past 12 Hours) Vital Signs Temp Pulse Pulse Resp BP BP BP 10/18/20 07:18 37.1 C 81 20 162/76 H 10/17/20 23:18 36.8 C 80 18 129/82 10/17/20 21:08 37.0 C 82 20 165/79 H 10/17/20 20:45 82 23 147/83 H 10/17/20 20:30 82 23 147/83 H 10/17/20 20:01 78 20 160/60 H Pulse Ox 10/18/20 07:18 93 10/17/20 23:18 94 10/17/20 21:08 92 10/17/20 20:45 93 10/17/20 20:30 93 10/17/20 20:01 94 Laboratory Results 10/18/20 10/18/20 10/17/20 Range/Units 06:24 06:24 18:15 WBC 12.21 H (4.8-10.8) K/uL RBC 4.12 L (4.2-5.4) M/uL Hgb 12.9 (12.0-16.0) g/dL Hct 38.0 (37-47) % MCV 92.2 (80-100) fL MCH 31.3 (25-34) pg MCHC 33.9 (32-36) g/dL RDW Std Deviation 43.8 (36.4-46.3) fL RDW Coeff of Irina 12.9 (11.5-14.5) % Plt Count 111 L (130-400) K/uL MPV 12.4 H (7.4-10.4) fL Immature Gran % (Auto) 0.3 % Neut % (Auto) 79.7 % Lymph % (Auto) 10.8 % [place] % (Auto) 9.0 % Eos % (Auto) 0.1 % Baso % (Auto) 0.1 % Neut # (Auto) 9.73 H (1.4-6.5) K/uL Lymph # (Auto) 1.32 (1.2-3.4) K/uL [place] # (Auto) 1.10 H (0.11-0.59) K/uL Eos # (Auto) 0.01 (0-0.5) K/uL Baso # (Auto) 0.01 (0-0.2) K/uL Immature Gran # (Auto) 0.04 H (0.00-0.02) K/uL Platelet Estimate Decreased L (Normal) Sodium 139 (136-145) mmol/L Potassium 3.6 (3.5-5.1) mmol/L Chloride 108 H (98-107) mmol/L Carbon Dioxide 27 (21-32) mmol/L Anion Gap 4.0 (3-11) BUN 20 H (7-18) mg/dl Creatinine 0.93 (0.6-1.2) mg/dl Est Cr Clr Drug Dosing 48.3 ml/min Est GFR ( Amer) 63.6 Est GFR (Non-Af Amer) 54.9 BUN/Creatinine Ratio 20.9 H (10-20) Glucose 95 (70-99) mg/dl Lactate (0.4-2.0) mmol/L Calcium 8.4 L (8.5-10.1) mg/dl Total Bilirubin 0.9 (0.2-1) mg/dl AST 10 L (15-37) U/L ALT 8 L (12-78) U/L Alkaline Phosphatase 69 (45-117) U/L Troponin I (0-0.045) ng/ml Total Protein 5.8 L (6.4-8.2) gm/dl Albumin 2.6 L (3.4-5.0) gm/dl Globulin 3.2 (2.5-4.0) gm/dl Albumin/Globulin Ratio 0.8 L (0.9-2) Urine Color Yellow Urine Appearance Cloudy A (Clear) Urine pH 5.0 (4.5-7.5) Ur Specific [place] 1.018 (1.000-1.030) Urine Protein Trace H (Negative) Urine Glucose (UA) Negative (Negative) Urine Ketones Negative (Negative) Urine Blood 1+ H (Negative) Urine Nitrite Positive A (Negative) Urine Bilirubin Negative (Negative) Urine Urobilinogen Negative (Negative) Ur Leukocyte Esterase 2+ H (Negative) Urine WBC (Auto) >30 H (0-5) /hpf Urine RBC (Auto) 0-4 (0-4) /hpf U Hyaline Cast (Auto) 1-5 (0-5) /lpf U Epithel Cells (Auto) 0-5 (0-5) /lpf Urine Bacteria (Auto) 4+ H (Negative) Urine Yeast Not Reportable COVID-19 Eval Order SARS-CoV-2 (PCR) (Negative) Influenza Type A (PCR) (Neg) Influenza Type B (PCR) (Neg) RSV (RT-PCR) (Neg) 10/17/20 10/17/20 10/17/20 Range/Units 17:42 17:25 17:25 WBC (4.8-10.8) K/uL RBC (4.2-5.4) M/uL Hgb (12.0-16.0) g/dL Hct (37-47) % MCV (80-100) fL MCH (25-34) pg MCHC (32-36) g/dL RDW Std Deviation (36.4-46.3) fL RDW Coeff of Irina (11.5-14.5) % Plt Count (130-400) K/uL MPV (7.4-10.4) fL Immature Gran % (Auto) % Neut % (Auto) % Lymph % (Auto) % [place] % (Auto) % Eos % (Auto) % Baso % (Auto) % Neut # (Auto) (1.4-6.5) K/uL Lymph # (Auto) (1.2-3.4) K/uL [place] # (Auto) (0.11-0.59) K/uL Eos # (Auto) (0-0.5) K/uL Baso # (Auto) (0-0.2) K/uL Immature Gran # (Auto) (0.00-0.02) K/uL Platelet Estimate (Normal) Sodium (136-145) mmol/L Potassium (3.5-5.1) mmol/L Chloride (98-107) mmol/L Carbon Dioxide (21-32) mmol/L Anion Gap (3-11) BUN (7-18) mg/dl Creatinine (0.6-1.2) mg/dl Est Cr Clr Drug Dosing ml/min Est GFR ( Amer) Est GFR (Non-Af Amer) BUN/Creatinine Ratio (10-20) Glucose (70-99) mg/dl Lactate 1.0 (0.4-2.0) mmol/L Calcium (8.5-10.1) mg/dl Total Bilirubin (0.2-1) mg/dl AST (15-37) U/L ALT (12-78) U/L Alkaline Phosphatase (45-117) U/L Troponin I (0-0.045) ng/ml Total Protein (6.4-8.2) gm/dl Albumin (3.4-5.0) gm/dl Globulin (2.5-4.0) gm/dl Albumin/Globulin Ratio (0.9-2) Urine Color Urine Appearance (Clear) Urine pH (4.5-7.5) Ur Specific [place] (1.000-1.030) Urine Protein (Negative) Urine Glucose (UA) (Negative) Urine Ketones (Negative) Urine Blood (Negative) Urine Nitrite (Negative) Urine Bilirubin (Negative) Urine Urobilinogen (Negative) Ur Leukocyte Esterase (Negative) Urine WBC (Auto) (0-5) /hpf Urine RBC (Auto) (0-4) /hpf U Hyaline Cast (Auto) (0-5) /lpf U Epithel Cells (Auto) (0-5) /lpf Urine Bacteria (Auto) (Negative) Urine Yeast COVID-19 Eval Order [facility]FluRsv at [facility] SARS-CoV-2 (PCR) NEGATIVE (Negative) Influenza Type A (PCR) Negative (Neg) Influenza Type B (PCR) Negative (Neg) RSV (RT-PCR) Negative (Neg) 10/17/20 10/17/20 Range/Units 17:25 17:25 WBC 11.80 H (4.8-10.8) K/uL RBC 4.50 (4.2-5.4) M/uL Hgb 14.4 (12.0-16.0) g/dL Hct 41.6 (37-47) % MCV 92.4 (80-100) fL MCH 32.0 (25-34) pg MCHC 34.6 (32-36) g/dL RDW Std Deviation 44.2 (36.4-46.3) fL RDW Coeff of Irina 12.9 (11.5-14.5) % Plt Count 132 (130-400) K/uL MPV 12.2 H (7.4-10.4) fL Immature Gran % (Auto) 0.2 % Neut % (Auto) 79.4 % Lymph % (Auto) 10.7 % [place] % (Auto) 9.3 % Eos % (Auto) 0.2 % Baso % (Auto) 0.2 % Neut # (Auto) 9.38 H (1.4-6.5) K/uL Lymph # (Auto) 1.26 (1.2-3.4) K/uL [place] # (Auto) 1.10 H (0.11-0.59) K/uL Eos # (Auto) 0.02 (0-0.5) K/uL Baso # (Auto) 0.02 (0-0.2) K/uL Immature Gran # (Auto) 0.02 (0.00-0.02) K/uL Platelet Estimate (Normal) Sodium 138 (136-145) mmol/L Potassium 3.9 (3.5-5.1) mmol/L Chloride 103 (98-107) mmol/L Carbon Dioxide 29 (21-32) mmol/L Anion Gap 5.0 (3-11) BUN 25 H (7-18) mg/dl Creatinine 1.14 (0.6-1.2) mg/dl Est Cr Clr Drug Dosing 39.6 ml/min Est GFR ( Amer) 49.7 Est GFR (Non-Af Amer) 42.9 BUN/Creatinine Ratio 22.1 H (10-20) Glucose 108 H (70-99) mg/dl Lactate (0.4-2.0) mmol/L Calcium 8.9 (8.5-10.1) mg/dl Total Bilirubin 1.2 H (0.2-1) mg/dl AST 13 L (15-37) U/L ALT 12 (12-78) U/L Alkaline Phosphatase 86 (45-117) U/L Troponin I < 0.015 (0-0.045) ng/ml Total Protein 7.2 (6.4-8.2) gm/dl Albumin 3.4 (3.4-5.0) gm/dl Globulin 3.8 (2.5-4.0) gm/dl Albumin/Globulin Ratio 0.9 (0.9-2) Urine Color Urine Appearance (Clear) Urine pH (4.5-7.5) Ur Specific [place] (1.000-1.030) Urine Protein (Negative) Urine Glucose (UA) (Negative) Urine Ketones (Negative) Urine Blood (Negative) Urine Nitrite (Negative) Urine Bilirubin (Negative) Urine Urobilinogen (Negative) Ur Leukocyte Esterase (Negative) Urine WBC (Auto) (0-5) /hpf Urine RBC (Auto) (0-4) /hpf U Hyaline Cast (Auto) (0-5) /lpf U Epithel Cells (Auto) (0-5) /lpf Urine Bacteria (Auto) (Negative) Urine Yeast COVID-19 Eval Order SARS-CoV-2 (PCR) (Negative) Influenza Type A (PCR) (Neg) Influenza Type B (PCR) (Neg) RSV (RT-PCR) (Neg) Diagnostic Findings XR chest 1V portable CLINICAL HISTORY: Fever COMPARISON STUDY: 08/20/2019 FINDINGS: The heart is enlarged. There is a retrocardiac opacity consistent with a large hiatal hernia. There is no lobar consolidation. There is no overt failure. There is mild interstitial thickening with a basilar predominance.[There is a 14 mm right perihilar nodule versus summation. IMPRESSION: 1. Persistent cardiomegaly and large hiatal hernia. No evidence of acute parenchymal consolidation 2. 14 mm right perihilar nodule versus summation. Short-term follow-up recommended. XR chest 1V portable HISTORY: f/u 14mm right perihilar nodule COMPARISON: Chest 10/17/2020. FINDINGS: No pneumothorax. No pleural effusions. The right infrahilar nodule seen in the prior study is not identified on this examination. There is a large hiatus hernia and stable cardiomegaly. Right basilar interstitial thickening is slightly progressed. Possible trace left pleural effusion. Left basilar linear densities remain unchanged and favor atelectasis. IMPRESSION: 1. Right infrahilar nodule seen on the prior study is not identified on today's examination. 2. Large hiatus hernia, unchanged. 3. Stable cardiomegaly. 4. Trace left pleural effusion. 5. Right basilar interstitial thickening has slightly progressed. This could represent atelectasis or a developing pneumonia. PG Care Time/CCT Total # of Minutes Spent Total Time Spent with Patient: Total time spent is greater than 50% in coordination of care (as documented) at patient's floor/unit and/or counseling patient: Coding Level of Care Code 37160 Subseq Hosp Care Lvl 3 Diagnoses Acute UTI (urinary tract infection) N39.0 Weakness R53.1 Fever R50.9 Tic douloureux G50.0 HTN (hypertension) I10 Glaucoma H40.9
[2020-10-18] MEDS: METOPROLOL SUCC 50MG EXT REL TAB PO SCH ×2 (08:02→08:03)
[2020-10-18] MEDS: GABAPENTIN 300 MG CAP PO SCH ×3 (08:02→21:20)
[2020-10-18] MEDS: LOSARTAN POTASSIUM 50 MG TAB PO SCH ×2 (08:02→08:03)
[2020-10-18] MEDS: ENOXAPARIN INJ 40 MG/0.4 ML SYR SQ SCH (08:03)
[2020-10-18] MEDS: ASPIRIN 81 MG ECTAB PO SCH (08:03)
[2020-10-18] MEDS: TIMOLOL GFS 0.5% OPH SOLN 74 DROPS/5 ML BTL OPB SCH (08:05)
[2020-10-18] MEDS ORDERED: NON-FORMULARY MEDICATION (Krill Oil 500 mg capsule) PO SCH (09:00)
--- NOTE | 2020-10-18 10:10 | XRay Report ---
XR chest 1V portable HISTORY: f/u 14mm right perihilar nodule COMPARISON: Chest 10/17/2020. FINDINGS: No pneumothorax. No pleural effusions. The right infrahilar nodule seen in the prior study is not identified on this examination. There is a large hiatus hernia and stable cardiomegaly. Right basilar interstitial thickening is slightly progressed. Possible trace left pleural effusion. Left ba silar linear densities remain unchanged and favor atelectasis. IMPRESSION: 1. Right infrahilar nodule seen on the prior study is not identified on today's examination. 2. Large hiatus hernia, unchanged. 3. Stable cardiomegaly. 4. Trace left pleural effusion. 5. Right basilar interstitial thickening has slightly progressed. This could represent atelectasis or a developing pneumonia. ACT 112: Negative or not required by law. Electronically signed by: Alan Quinn M.D. 10/18/2020 10:08 AM
[2020-10-18] MEDS: NSS + 20MEQ KCL 20 MEQ/1,000 ML BAG IV SCH ×2 (10:27→23:08)
[2020-10-18] MEDS: cefTRIAXone SODIUM 2,000 MG in DEXTROSE 5% 50 ML IV SCH (17:23)
--- NOTE | 2020-10-18 17:29 | Electrocardiogram Report ---
Test Reason : Blood Pressure : / mmHG Vent. Rate : 081 BPM Atrial Rate : 081 BPM P-R Int : 142 ms QRS Dur : 084 ms QT Int : 378 ms P-R-T Axes : 023 -18 073 degrees QTc Int : 439 ms Sinus rhythm with Premature atrial complexes Abnormal ECG When compared with ECG of 20-AUG-2019 10:41, Premature atrial complexes are now Present Inverted T waves have replaced nonspecific T wave abnormality in Lateral leads Confirmed by Mina Mancini [id number] on 10/18/2020 5:28:56 PM Referred By: Consuelo Ambriz Confirmed By:Aj Mancini
[2020-10-18] MEDS: TIMOLOL GFS 0.5% OPH SOLN 74 DROPS/5 ML BTL OPL SCH (21:21)
[2020-10-19 07:59] LABS: Basophils # (auto) 0.02 K/uL (0-0.2); Basophils % (auto) 0.2 %; Eosinophils # (auto) 0.05 K/uL (0-0.5); Eosinophils % (auto) 0.6 %; Hematocrit (blood only) 36.3 % (37-47); Hemoglobin 12.2 g/dL (12.0-16.0); Immature Granulocytes # (auto) 0.02 K/uL (0.00-0.02); Immature Granulocytes % (auto) 0.2 %; Lymphocytes # (auto) 1.76 K/uL (1.2-3.4); Lymphocytes % (auto) 20.5 %; Mean Corpuscular Hgb Conc 33.6 g/dL (32-36); Mean Corpuscular Volume 92.4 fL (80-100); Mean Platelet Volume 11.9 fL (7.4-10.4); Monocytes # (auto) 0.81 K/uL (0.11-0.59); Monocytes % (auto) 9.4 %; Neutrophils # (auto) 5.94 K/uL (1.4-6.5); Neutrophils % (auto) 69.1 %; Platelet Count 103 K/uL (130-400); RDW Coefficient of Variation 12.8 % (11.5-14.5); RDW Standard Deviation 43.6 fL (36.4-46.3); Red Blood Count 3.93 M/uL (4.2-5.4)
[2020-10-19 08:32] LABS: Albumin Level 2.6 gm/dl (3.4-5.0); BUN Creatinine Ratio 21.7 (10-20); Calcium 8.3 mg/dl (8.5-10.1); Creatinine Clr Calc Pharmacy 54.1 ml/min; Potassium 3.8 mmol/L (3.5-5.1)
[2020-10-19 08:34] LABS: Albumin Globulin Ratio 0.8 (0.9-2); Bilirubin,Total 0.6 mg/dl (0.2-1); Globulin 3.2 gm/dl (2.5-4.0); Total Protein 5.8 gm/dl (6.4-8.2)
[2020-10-19] MEDS: METOPROLOL SUCC 50MG EXT REL TAB PO SCH (08:45)
[2020-10-19] MEDS: LOSARTAN POTASSIUM 50 MG TAB PO SCH (08:46)
[2020-10-19] MEDS: ASPIRIN 81 MG ECTAB PO SCH (08:46)
[2020-10-19] MEDS: ENOXAPARIN INJ 40 MG/0.4 ML SYR SQ SCH (08:46)
[2020-10-19] MEDS: GABAPENTIN 300 MG CAP PO SCH (08:47)
[2020-10-19] MEDS: TIMOLOL GFS 0.5% OPH SOLN 74 DROPS/5 ML BTL OPB SCH (08:48)
[2020-10-19] MEDS ORDERED: PANTOprazole 40 MG TAB PO SCH (09:00)
--- NOTE | 2020-10-19 09:40 | Hospitalist Progress Note ---
Date of Service October 19, 2020 Assessment & Plan (1) Acute UTI (urinary tract infection): * Changed to full admission * Urinary tract infection/generalized weakness and fever- * History of previous UTIs with pansensitive E. coli. * Urine culture with gram negative bacilli -- follow c/s --> Ecoli and will d/c on Keflex QID for total 7 days (need 4 more days) * Continued ceftriaxone IV daily (on day 2 of therapy) * NS + 20K @ 80cc/hr to complete 2 liters total * WBC unchanged, slightly higher (?atelectasis as well contributing given CXR/cough) * --> Repeat CXR in AM. Add atypical coverage if needed * Labs in AM (2) Weakness: * See above * Added PT/OT evals (3) Fever: * See above -- secondary to UTI +/- atelectasis/pneumonia * Repeating CXR as above now that added incentive spirometer * No wheezing/shortness of breath reported * No further fevers during admission (4) Tic douloureux: * Stable * Continue gabapentin (5) HTN (hypertension): * Holding triamterene/HCTZ. * Continue metoprolol succinate and losartan with hold parameters * BP 162/72 * Continue to monitor (6) Glaucoma: * Continue timolol maleate eyedrops as outpatient prescribed Hiatal Hernia * hx of, noted. will add Protonix 40mg daily. continue to monitor DVT Prophylaxis * Lovenox SQ while inpatient Dispo: continued inpatient stay (7) Morbid obesity with BMI of 40.0-44.9, adult: Admission and Anticipated Discharge Date Admission Date: October 18, 2020 Results & Data Results & Data ([facility]) Vital Signs (Past 12 Hours) Vital Signs Temp Pulse Resp BP Pulse Ox 10/19/20 07:21 37.1 C 65 18 181/84 H 92 10/18/20 23:05 37.3 C 63 18 129/72 91 Laboratory Results 10/19/20 10/19/20 Range/Units 07:44 07:44 WBC 8.60 (4.8-10.8) K/uL RBC 3.93 L (4.2-5.4) M/uL Hgb 12.2 (12.0-16.0) g/dL Hct 36.3 L (37-47) % MCV 92.4 (80-100) fL MCH 31.0 (25-34) pg MCHC 33.6 (32-36) g/dL RDW Std Deviation 43.6 (36.4-46.3) fL RDW Coeff of Irina 12.8 (11.5-14.5) % Plt Count 103 L (130-400) K/uL MPV 11.9 H (7.4-10.4) fL Immature Gran % (Auto) 0.2 % Neut % (Auto) 69.1 % Lymph % (Auto) 20.5 % Bibb % (Auto) 9.4 % Eos % (Auto) 0.6 % Baso % (Auto) 0.2 % Neut # (Auto) 5.94 (1.4-6.5) K/uL Lymph # (Auto) 1.76 (1.2-3.4) K/uL Bibb # (Auto) 0.81 H (0.11-0.59) K/uL Eos # (Auto) 0.05 (0-0.5) K/uL Baso # (Auto) 0.02 (0-0.2) K/uL Immature Gran # (Auto) 0.02 (0.00-0.02) K/uL Sodium 139 (136-145) mmol/L Potassium 3.8 (3.5-5.1) mmol/L Chloride 110 H (98-107) mmol/L Carbon Dioxide 23 (21-32) mmol/L Anion Gap 6.0 (3-11) BUN 18 (7-18) mg/dl Creatinine 0.83 (0.6-1.2) mg/dl Est Cr Clr Drug Dosing 54.1 ml/min Est GFR ( Amer) 73.0 Est GFR (Non-Af Amer) 63.0 BUN/Creatinine Ratio 21.7 H (10-20) Glucose 83 (70-99) mg/dl Calcium 8.3 L (8.5-10.1) mg/dl Total Bilirubin 0.6 (0.2-1) mg/dl AST 9 L (15-37) U/L ALT 8 L (12-78) U/L Alkaline Phosphatase 64 (45-117) U/L Total Protein 5.8 L (6.4-8.2) gm/dl Albumin 2.6 L (3.4-5.0) gm/dl Globulin 3.2 (2.5-4.0) gm/dl Albumin/Globulin Ratio 0.8 L (0.9-2) PG Care Time/CCT Total # of Minutes Spent Total Time Spent with Patient: Total time spent is greater than 50% in coordination of care (as documented) at patient's floor/unit and/or counseling patient: Coding Diagnoses Acute UTI (urinary tract infection) N39.0 Weakness R53.1 Fever R50.9 Tic douloureux G50.0 HTN (hypertension) I10 Glaucoma H40.9 Morbid obesity with BMI of 40.0-44.9, adult E66.01; Z68.41
[2020-10-19] MEDS ORDERED: TRIAMTERENE/HCTZ 37.5/25MG TAB PO SCH (09:45)
--- NOTE | 2020-10-19 10:04 | XRay Report ---
SINGLE VIEW CHEST CLINICAL HISTORY: Follow-up abnormal chest x-ray. FINDINGS: 2 AP, portable, upright chest radiographs are compared to study dated 10/18/2020 and correla billy with chest CT dated 08/20/2019. There is a large hiatal hernia. The heart is enlarged noting ather osclerotic calcification of the thoracic aorta. Chronic interstitial thickening is similar to previou s. The pulmonary vasculature is noncongested. There is bibasilar scarring/atelectasis, greatest at th e left lung base. There is improved aeration of the left lower lung as compared to yesterday. No airs pace consolidation is seen typical for pneumonia and there is no large pleural effusion identified. N o pneumothorax is seen. The skeletal structures are osteopenic. The bony thorax is grossly intact. De generative change is noted in the shoulders and thoracic spine. IMPRESSION: 1. Cardiomegaly without radiographic evidence of congestive failure. 2. Large hiatal hernia. 3. There is bibasilar scarring/atelectasis with improved aeration at the lung bases as compared to ye . 4. No airspace consolidation is seen typical for pneumonia and there is no large pleural effusion. ACT 112: Negative or not required by law. Electronically signed by: Ladarius Perkins M.D. 10/19/2020 10:02 AM
[2020-10-19] MEDS: NSS + 20MEQ KCL 20 MEQ/1,000 ML BAG IV SCH (10:57)
--- NOTE | 2020-10-19 14:45 | Discharge Summary ---
Date of Service October 19, 2020 Admission HPI Per Admitting Provider The patient is an 89-year-old female with a past medical history including tremor, constipation, arthritis, tic douloureux, kidney stone, asthma, hypertension, glaucoma and 2 previous UTIs with pansensitive E. coli on and 08/20/2019. Admission Exam Per Admitting Provider The patient is awake, alert and oriented 3, well developed and well nourished, normocephalic and atraumatic, lying in bed and in no acute distress. HEENT--PERRL, EOMI, mucous membranes and oropharynx dry. Neck--supple. No JVD. No bruits. Thyroid normal, trachea midline, no adenopathy. Heart--normal S1 and S2. No murmurs, rubs or gallops. Lungs--clear bilaterally, no respiratory distress, no accessory muscle use. Abdomen--normal bowel sounds and soft. Nontender. Nondistended. Morbidly obese Extremities--no cyanosis or clubbing. No edema. Dermatologic--normal skin turgor, normal color, no abnormal lymph nodes, no rash. Neurologic--cranial nerves II through XII grossly intact. Rheumatologic--normal range of motion. Psychiatric--normal affect. Principal Diagnosis UTI Discharge Exam Constitutional WD/WN, vitals as above + obese; no acute distress Eyes + anicteric sclerae and PERRL ENMT Ears: no hearing impairment Neck normal visual inspection and trachea midline Respiratory normal respiratory effort, lungs clear to auscultation Auscultation: + diminished lung sounds Cardiovascular Rate/Rhythm: regular rate and regular rhythm Vessels: no JVD Extremities: + edema (baseline) Gastrointestinal (Abdomen) normal bowel sounds, soft, nontender, no hepatosplenomegaly Musculoskeletal no cyanosis or clubbing, extremities motor strength 5/5 Skin no rashes, warm and dry Neurologic patellar DTR's 2+ bilat, sensation intact Psychiatric A+Ox3, euthymic affect Genitourinary no laureano Lymphatic no cervical or axillary lymphadenopathy Discharge Data Allergies Allergy/AdvReac Type Severity Reaction Status Date / Time Sulfa (Sulfonamide Allergy Unknown HIVES Verified 10/17/20 17:58 Antibiotics) indomethacin AdvReac Unknown SEVERE Verified 10/17/20 17:58 HEADACHE Consultations 10/17/20 20:13 ED Decision to Admit Stat Hospital Course (1) Acute UTI (urinary tract infection): Admitted for several days of weakness/fever/urinary symptoms prior to admission UA infected-- culture with E. Coli On Rocephin while inpatient and discharged on keflex 500mg QID to complete 5 day course Provided supportive care, IVF, antiemetics as needed WBC wnl on AM labs, afebrile Blood cultures remain no growth to date (2) Weakness: See above, secondary to febrile illness and UTI Added PT/OT evals -- home health arranged at discharge CXR initially with 14mm r perihilar nodule vs summation but repeat not seen. Large haital hernia and stable cardiomegaly. Aeration improved with incentive spirometer as patient had not been taking deep breaths. No consolidation or large pleural effusion Weakness improved and patient stated ready for d/c with home health today (3) Fever: See above -- secondary to UTI . see above (4) Tic douloureux: Stable Continued gabapentin (5) HTN (hypertension): Held triamterene/HCTZ on admission for dehydration/UTI and provided IVF Resumed at discharge BP 111/71 (6) Morbid obesity with BMI of 40.0-44.9, adult: Noted, BMI 43.5 Recommend increased activity and dietary modifications (7) Hiatal hernia: Hiatal Hernia hx of, noted. will add Protonix 40mg daily and continued this at discharge with recommendations for f/u with PCP to see if she should continue (8) Glaucoma: Continued timolol maleate eyedrops as outpatient prescribed DVT Prophylaxis Lovenox SQ while inpatient Discharged with home health. Total Time Total Time Spent Total Time Spent (In Minutes): 60 Discharge Plan Discharge Items Patient Disposition: Home - Home Health Services Reason For Visit: UTI, CHANGE IN MENTAL STATUS Discharge Diagnosis: UTI Goals: You have been hospitalized for an acute medical problem. During your stay at [facility], we have made an effort to correct the problem that brought you to the hospital while keeping you as comfortable as possible. Medications were used to bring your condition under control and your discharge instructions will include directions for any medications you should take after leaving the hospital. Please make sure you see your Primary Care Provider as part of your follow up plan. Activity: Resume your previous activity Activity Comment: continue to work with home health Non-emergency contact: Primary Care Provider Call non-emergency contact if: you have any medication questions, your symptoms worsen and your pain is concerning for you Follow-up/Referrals: Consuelo Ambriz MD [Primary Care Provider] - 10/25/20 10:00 am Diet: Heart Healthy Addtl Attending Provider Instructions: You have been hospitalized for mental status change, weakness and found to have a urinary tract infection. Urine culture was obtained and grew out E. Coli, similar to your previous infections. You were treated with IV antibiotics while in the hospital and palpitating discharged on Keflex 500 mg 4 times daily for an additional 3 days to complete a course of 5 days. You should continue to remain well-hydrated continue proper hygiene care to prevent repeat infections. Your blood pressure medication triamterenehydrochlorothiazide was held during admission you were dehydrated with your current urinary tract infection and this can be resumed at discharge. Is recommended to check your blood pressures at home to see if this dose may be able to be decreased further. You also can send in the prescription for Protonix 40 mg by mouth daily to help with reflux given your large hiatal hernia to help with symptoms. You may find that she will need to use this on occasion however a prescription has been sent for daily and you should follow-up with your primary care provider in the next week to monitor progress and to see if you should continue on this medication. Please return to the emergency department with any worsening fever, chest pain, shortness of breath, or any other symptoms that are concerning to you. It has been a pleasure being a part of the medical team providing for you while you have been in the hospital. Take care! Pending Studies at Discharge: Yes Studies:: Blood cultures -- no growth to date Stand-Alone Forms: My [facility] Medications and DC Order Prescriptions: New pantoprazole 40 mg Tablet,Delayed Release (Dr/Ec) 40 mg PO QAM Qty: 30 RF: 0 cephalexin 500 mg capsule 500 mg PO QID 3 Days Qty: 12 RF: 0 Continued losartan 100 mg tablet 100 mg PO QAM Qty: 90 RF: 3 metoprolol succinate 50 mg tablet extended release 24 hr 50 mg PO QAM Qty: 90 RF: 3 triamterene-hydrochlorothiazid 37.5-25 mg tablet 0.5 tab PO QAM Qty: 45 RF: 3 aspirin 81 mg tablet,delayed release (DR/EC) 81 mg PO QAM RF: 0 krill oil 500 mg capsule 500 mg PO QAM RF: 0 timolol maleate 0.5 % gel forming solution 1 drp OPB QAM RF: 0 timolol maleate 0.5 % gel forming solution 1 drp OPL HS RF: 0 gabapentin 300 mg capsule 300 mg PO AMPM RF: 0 Discharge Orders: Discharge Order (Routine); Ordered 10/19/20 Ordered By: Ly Smyth Admission Data Admit Date/Time: 10/18/20 13:50 Attending Provider: Barby Kay Admit Provider: René Dalton Primary Care Provider: Consuelo Ambriz Other Providers: René Dalton ; [facility],Home Healthcare Supervising Physician Co-Signing Physician Notes PA Supervision Note: I personally saw and examined the patient. I verified all bynum points and agree with MARLIN Smyth with the following exceptions and/or additions: S-patient feeling well and has no complaints. She is ready for discharge home. Denies abdominal pain. She is eating well. Still feels little bit weak with walking but feels she will do better with her usual walker at home. O- Vitals reviewed Gen: AAOx3, NAD, obese HEENT: Anicteric sclerae, EOMI CV: RRR no mgr nl S1S2 Pulm: CTAB no wcr Abd: +BS soft NT ND no masses or hernias Ext: No edema Skin: No rashes, warm/dry Neuro: Full strength throughout A/A-87-[id number]-old female with history as above here with UTI and fever. Doing much better, stable for dc to home I certify that this patient is under my care and that I, or a physicians orthodontic assistant working with me, had a face to-face encounter that meets the home health [id number] encounter requirements with this patient. The encounter with the patient was in whole, or in part, for the following medical condition, which is the primary reason for home health care (list medical condition): monitor UTI resolution. I certify that, based on my findings, the following services are medically necessary home health services: My clinical findings support the need for the above services because: Home Safety Assessment OT Assess ADL Status and Restore Function w ADLs PT Assessment for Endurance / Balance / Strength PT Eval for Safety and Mobility Skilled Nsg Assessment Further, I certify that my clinical findings support that this patient is homebound (i.e. absences from home require considerable and taxing effort and are for medical reasons or sikhism services or infrequently or of short duration when for other reasons) because: Transportation Assistance/Unable to Leave Home Unassisted Certification for Home Health Services: Based on the above findings, I certify that this patient is confined to the home and needs intermittent intermediate care, physical therapy and/or speech therapy or continues to need occupational therapy. The patient is under my care, and I have initiated the establishment of the plan of care. This patient will be followed by a physician who will periodically review the plan of care. Coding Level of Care Code D/C Day Management >30 mins Diagnoses Acute UTI (urinary tract infection) N39.0 Weakness R53.1 Fever R50.9 Tic douloureux G50.0 HTN (hypertension) I10 Morbid obesity with BMI of 40.0-44.9, adult E66.01; Z68.41 Hiatal hernia K44.9 Glaucoma H40.9
[2020-10-19] MEDS: cefTRIAXone SODIUM 2,000 MG in DEXTROSE 5% 50 ML IV SCH (15:33)
== END 2020-10-19 17:29 | disposition home health service (06) | DRG 689 ==
LOC: 3N 16:36 → ED 16:36 → SUATTDRO 19:49 → 3N 20:45

== ENCOUNTER 2020-10-31 17:03 | Inpatient (IN) ==
[2020-10-31] MEDS ORDERED: SODIUM CHLORIDE 0.9% 500 ML IV ONE (18:10)
[2020-10-31 19:04] LABS: Basophils # (auto) 0.03 K/uL (0-0.2); Basophils % (auto) 0.5 %; Eosinophils % (auto) 1.6 %; Hematocrit (blood only) 40.1 % (37-47); Hemoglobin 13.6 g/dL (12.0-16.0); Immature Granulocytes # (auto) 0.01 K/uL (0.00-0.02); Immature Granulocytes % (auto) 0.2 %; Lymphocytes # (auto) 1.66 K/uL (1.2-3.4); Lymphocytes % (auto) 27.1 %; Mean Corpuscular Hemoglobin 31.6 pg (25-34); Mean Corpuscular Hgb Conc 33.9 g/dL (32-36); Mean Corpuscular Volume 93.3 fL (80-100); Monocytes # (auto) 0.56 K/uL (0.11-0.59); Monocytes % (auto) 9.2 %; Neutrophils # (auto) 3.76 K/uL (1.4-6.5); Neutrophils % (auto) 61.4 %; Platelet Count 217 K/uL (130-400); RDW Coefficient of Variation 13.3 % (11.5-14.5); RDW Standard Deviation 45.4 fL (36.4-46.3); White Blood Count 6.12 K/uL (4.8-10.8)
[2020-10-31 19:13] LABS: Prothrombin Time 10.6 Seconds (9.0-12.0)
[2020-10-31 19:18] LABS: Appearance Urine Clear (Clear); Bilirubin Urine Negative (Negative); Blood Urine Negative (Negative); Color Urine Yellow; Glucose Urine UA Negative (Negative); Ketones Urine Negative (Negative); Leukocyte Esterase Urine Negative (Negative); Nitrite Urine Negative (Negative); Protein Urine Negative (Negative); Specific Gravity Urine 1.009 (1.000-1.030); Urobilinogen Urine Negative (Negative)
[2020-10-31 19:26] LABS: Alanine Aminotransferase 14 U/L (12-78); Albumin Level 3.3 gm/dl (3.4-5.0); Aspartate Aminotransferase 17 U/L (15-37); BUN Creatinine Ratio 19.7 (10-20); Bilirubin Direct 0.2 mg/dl (0-0.2); Blood Urea Nitrogen 25 mg/dl (7-18); Calcium 9.5 mg/dl (8.5-10.1); Carbon Dioxide 31 mmol/L (21-32); Chloride 105 mmol/L (98-107); Creatinine Clr Calc Pharmacy 33.2 ml/min; Est GFR (African American) 43.2; Est GFR (Non-African American) 37.3; Glucose 87 mg/dl (70-99); Lipase 150 U/L (73-393); Magnesium 2.3 mg/dl (1.8-2.4); Potassium 4.2 mmol/L (3.5-5.1); Sodium 141 mmol/L (136-145)
--- NOTE | 2020-10-31 19:31 | XRay Report ---
XR chest 1V portable HISTORY: 89 years-old Female Chest Pain . Acute atypical chest pain COMPARISON: Chest radiograph 10/19/2020, CT chest 08/20/2019 TECHNIQUE: Portable AP view of the chest FINDINGS: Cardiac silhouette is enlarged. Calcified plaque of the thoracic aorta. Pulmonary vascular congestion . Similar-appearing retrocardiac left lung base opacity. Degenerative changes of the shoulders and sp ine. IMPRESSION: 1. Cardiomegaly with pulmonary vascular congestion. 2. Similar appearing left lung base opacity suggests probable atelectasis. ACT 112: Negative or not required by law. The above report was generated using voice recognition software. It may contain grammatical, syntax o r spelling errors. Electronically signed by: Meek Etienne M.D. 10/31/2020 7:29 PM
[2020-10-31 19:34] LABS: Albumin Globulin Ratio 0.9 (0.9-2); Alkaline Phosphatase 83 U/L (45-117); Bilirubin,Total 0.6 mg/dl (0.2-1); Creatine Kinase 76 U/L (26-192); Globulin 3.6 gm/dl (2.5-4.0); NT Pro B Type Natriuretic Pept 369 pg/ml (0-1800); Phosphorus 3.9 mg/dl (2.5-4.9); Total Protein 6.9 gm/dl (6.4-8.2); Troponin I < 0.015 ng/ml (0-0.045)
[2020-10-31] MEDS ORDERED: OPTIRAY 300 100mL IV ONE (19:55)
[2020-10-31 19:56] LABS: Influenza A virus by PCR Negative (Neg); Influenza B virus by PCR Negative (Neg); RSV by PCR Negative (Neg); SARS CoV2 RNA(COVID-19) InHosp NEGATIVE (Negative)
--- NOTE | 2020-10-31 21:44 | Emergency Department Note ---
Impression & Plan Generalized weakness, Lower extremity edema, Renal insufficiency ED Provider Note NAME: JACINTA RAMIREZ AGE: 89 SEX: F ARRIVES VIA: Ambulance INFORMANT: Patient, daughter ED PROVIDER(S): Martin Marquez MD CHIEF COMPLAINT: Generalized weakness PLAN: Disposition: Admit MEDICAL DECISION MAKING: The patient is a pleasant 89-year-old woman with a past medical history of essential tremor, constipation, arthritis, nephrolithiasis, asthma, hypertension presents to the emergency department accompanied by her daughter for evaluation of worsening generalized weakness over the past couple of days where she is unable to walk with her walker at her baseline. The patient presents in the setting of recent admission for urinary tract infection and associated generalized weakness from 10/18-10/19 discharged to home with home health and PT O T however the patient and her daughter at the bedside feel as though she has had a gradual decline has not been doing well at home and over the past couple of days has been unable to walk with her walker due to generalized weakness. They did call her PCP to see if they could have a repeat urine sample tested and were started empirically on ciprofloxacin while awaiting results but she has not impr sabine. Review of the patient's urine culture results from 10/29 results show no culprit bacterial growth. Reports decreased appetite but denies nausea, vomiting, diarrhea, chest pain, shortness of breath, cough, congestion, abdominal pain, or urinary symptoms. EKG without overt acute ischemia. CXR negative for acute cardiopulmonary process. WBC, H/H and platelets within normal limits. Chemistry without metabolic acidosis. Creatinine 1.28, slightly increased from recent values. LFTs unremarkable. Troponin negative/undetectable. BNP within normal limits. UA without convincing evidence of infection today. Covid-19 PCR negative. Influenza and RSV PCR also negative. CT of the head negative for acute process per preliminary stat rad report. There is note made of chronic microvascular ischemic change. CT abdomen pelvis also negative for acute process. However note is made of very large hiatal hernia containing the entirety of the stomach and portions of the transverse colon. Upon reevaluation the patient did report feeling somewhat improved though still with generalized weakness throughout and so given her inability to function at home since she cannot walk with her walker they were in agreement with plan for admission for PT OT and placement as we are unable to place her in rehab directly due to her insurance. Case was [place] [facility] [place] who will evaluate the patient for admission. Triage Nursing notes reviewed and agree them. Prior medical records reviewed Vital Signs: reviewed and remarkable for no significant abnormalities Differential diagnosis: Infection, dehydration, metabolic abnormality, hypo/hyperglycemia, electrolyte disturbance, anemia, hypoxia, cardiac sources, intracerebral event, toxicologic, neurologic, as well as other pathologies. ER treatment provided: See below. Diagnostics interpreted by me: ECG: Sinus bradycardia, 55 bpm, LVH, no overt ST elevation or depression, QTC 426, QRS 84. Cardiac Monitoring: An order for continuous cardiac monitoring was placed and demonstrated sinus bradycardia, 55 bpm, no ectopy. Laboratory studies: See below Imaging studies: See below STATRAD Preliminary Findings Only See Final Report For Complete Findings CT HEAD: No intracranial hemorrhage, hydrocephalus, mass-effect, or edema. Chronic microvascular ischemic changes. Paranasal sinuses and mastoid air cells are clear. Radiologist: Isak Montenegro MD Study ready at 20:13 and initial results transmitted at 20:16 ----- Preliminary Findings Only See Final Report For Complete Findings CT ABDOMEN & PELVIS With Contrast: No mucosal thickening in the bladder. No obstructive uropathy. Punctate nonobstructing nephrolithiasis on the left. Renal cortical cysts. Very large hiatal hernia containing the entirety of the stomach and portions of the transverse colon. Colonic diverticulosis without acute diverticulitis. Hysterectomy. Liver, gallbladder, pancreas, and spleen are unremarkable. Fat-containing umbilical hernia. Radiologist: Isak Montenegro MD Study ready at 20:29 and initial results transmitted at 20:34 Consultation(s): Case was discussed [place] Dr. Dalton, [facility] [place], who will evaluate the patient for admission. HPI: The patient is a pleasant 89-year-old woman with a past medical history of essential tremor, constipation, arthritis, nephrolithiasis, asthma, hypertension presents to the emergency department accompanied by her daughter for evaluation of worsening generalized weakness over the past couple of days where she is unable to walk with her walker at her baseline. The patient presents in the setting of recent admission for urinary tract infection and associated generalized weakness from 10/18-10/19 discharged to home with home health and PT O T however the patient and her daughter at the bedside feel as though she has had a gradual decline has not been doing well at home and over the past couple of days has been unable to walk with her walker due to generalized weakness. They did call her PCP to see if they could have a repeat urine sample tested and were started empirically on ciprofloxacin while awaiting results but she has not impr sabine. Review of the patient's urine culture results from 10/29 results show no culprit bacterial growth. Reports decreased appetite but denies nausea, vomiting, diarrhea, chest pain, shortness of breath, cough, congestion, abdominal pain, or urinary symptoms. ROS: See above HPI for pertinent positives & negatives. A total of 10 systems reviewed and were otherwise negative. PAST MEDICAL HISTORY:See Below PAST SURGICAL HISTORY:See Below FAMILY HISTORY:See Below SOCIAL HISTORY:See Below HOME MEDICATIONS:See Below ALLERGIES:See Below VITALS:See Below PHYSICAL EXAMINATION: GENERAL: Awake, alert, fatigued/chronically ill-appearing, in no distress. BMI 39.5. HENT: Normocephalic, atraumatic. Oropharynx with dry mucous membranes and otherwise unremarkable. EYES: Normal conjunctiva. Sclera non-icteric. NECK: Supple. No nuchal rigidity. FROM. No JVD. RESPIRATORY: Clear to auscultation. CARDIAC: Regular rate, normal rhythm. Extremities warm and well perfused. Pulses equal. ABDOMEN: Soft, non-distended. No tenderness to palpation. No rebound or guarding. No masses. RECTAL: Deferred. MUSCULOSKELETAL: Chest examination reveals no tenderness. The back is sy mmetrical on inspection without obvious abnormality. There is no CVA tenderness to palpation. No joint edema. LOWER EXTREMITIES: Calves are equal size bilaterally and non-tender. Chronic 1+ BLE pitting edema. No discoloration. NEURO: No focal sensory or motor deficits noted. Generalized weakness with 4/5 strength and SILT x 4 Ext. SKIN: No rash or jaundice noted. Martin Marquez MD Past Med/Surg History Medical History Arthritis Bronchitis Cataract Fever Glaucoma Hiatal hernia PNA (pneumonia) Weakness Surgical History H/O tubal ligation Hx of cataract surgery Hx of vaginal hysterectomy S/P knee replacement Family History Sister Breast cancer Father Colorectal cancer Mother Hypertension Denies family history of Ovarian cancer Prostate cancer Diabetes Myocardial infarction Lung cancer Stroke Social History Smoking Status: Former smoker Tobacco Type: Cigarettes Second Hand Exposure: Yes; Hx Alcohol Use: No Hx Substance Use: No Preferred Language: [place] Communication Ability: Effective 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 Beliefs That Will Affect Care: None marital status: Current Living Situation: Family Current Living Situation Comment: grandso lives with her current occupational status: retired Other Information That Helps Us Care for You: No Feels Safe at Home: Yes Safety Concerns: Feels Safe At This Time caffeine: No Dental Care, Regularly: No Physical Activity Frequency: Does not Exercise Seatbelt Use: always Sunscreen Use: No Assistive Devices: None Allergies Allergies Allergy/AdvReac Type Severity Reaction Status Date / Time Sulfa (Sulfonamide Allergy Unknown HIVES Verified 10/31/20 19:27 Antibiotics) indomethacin AdvReac Unknown SEVERE Verified 10/31/20 19:27 HEADACHE Home Meds Home Medications Medication Instructions Recorded Confirmed aspirin 81 mg tablet,delayed 81 mg PO QAM tab 03/10/19 10/31/20 release krill oil 500 mg capsule 500 mg PO QAM cap 03/10/19 10/31/20 timolol maleate 1 drp OPB QAM 08/20/19 10/31/20 timolol maleate 1 drp OPL HS 08/20/19 10/31/20 gabapentin 300 mg PO AMPM 10/17/20 10/31/20 Previous Rx's Medication Instructions Recorded losartan 100 mg tablet 100 mg PO QAM #90 tab 07/26/20 metoprolol succinate 50 mg 50 mg PO QAM #90 tab 07/26/20 tablet,extended release 24 hr triamterene 37.5 0.5 tab PO QAM #45 tab 07/26/20 mg-hydrochlorothiazide 25 mg tablet pantoprazole 40 mg PO QAM #30 tab 10/19/20 ciprofloxacin HCl 500 mg tablet 500 mg PO BID 7 Days #14 tab 10/28/20 Results & Data (ED) Vital Signs Vital Signs - 24 hr 10/31/20 17:11 10/31/20 17:57 10/31/20 18:59 Temperature 36.6 C Temperature Source Oral Pulse Rate 56 L 73 Pulse Rate [Apical] 72 Pulse Rhythm Regular Regular Pulse Strength Normal Respiratory Rate 15 17 16 Respiratory Effort / Characteristics Non-Labored Spontaneous Respiratory Depth Normal Blood Pressure 144/81 H Blood Pressure [Left Arm] 145/70 H Blood Pressure Mean 102 Blood Pressure Mean [Left Arm] 95 Pulse Oximetry 96 98 95 Oxygen Delivery Method Room Air Room Air Sepsis Recent Fever Within 48 Hours No Sepsis New/Unexplained Change in Mental Status No Sepsis Action Taken by Nursing No Action Required Laboratory Data Attestation: I reviewed the patient's lab results. Result diagrams: 10/31/20 18:47 10/31/20 18:47 Lab Results 10/31/20 10/31/20 10/31/20 Range/Units 18:25 18:47 18:47 WBC 6.12 (4.8-10.8) K/uL RBC 4.30 (4.2-5.4) M/uL Hgb 13.6 (12.0-16.0) g/dL Hct 40.1 (37-47) % MCV 93.3 (80-100) fL MCH 31.6 (25-34) pg MCHC 33.9 (32-36) g/dL RDW Std Deviation 45.4 (36.4-46.3) fL RDW Coeff of Irina 13.3 (11.5-14.5) % Plt Count 217 (130-400) K/uL MPV 12.0 H (7.4-10.4) fL Immature Gran % (Auto) 0.2 % Neut % (Auto) 61.4 % Lymph % (Auto) 27.1 % Creek % (Auto) 9.2 % Eos % (Auto) 1.6 % Baso % (Auto) 0.5 % Neut # (Auto) 3.76 (1.4-6.5) K/uL Lymph # (Auto) 1.66 (1.2-3.4) K/uL Creek # (Auto) 0.56 (0.11-0.59) K/uL Eos # (Auto) 0.10 (0-0.5) K/uL Baso # (Auto) 0.03 (0-0.2) K/uL Immature Gran # (Auto) 0.01 (0.00-0.02) K/uL PT 10.6 (9.0-12.0) Seconds INR 1.0 (0.9-1.1) Sodium (136-145) mmol/L Potassium (3.5-5.1) mmol/L Chloride (98-107) mmol/L Carbon Dioxide (21-32) mmol/L Anion Gap (3-11) BUN (7-18) mg/dl Creatinine (0.6-1.2) mg/dl Est Cr Clr Drug Dosing ml/min Est GFR ( Amer) Est GFR (Non-Af Amer) BUN/Creatinine Ratio (10-20) Glucose (70-99) mg/dl Calcium (8.5-10.1) mg/dl Phosphorus (2.5-4.9) mg/dl Magnesium (1.8-2.4) mg/dl Total Bilirubin (0.2-1) mg/dl Direct Bilirubin (0-0.2) mg/dl AST (15-37) U/L ALT (12-78) U/L Alkaline Phosphatase (45-117) U/L Total Creatine Kinase (26-192) U/L Troponin I (0-0.045) ng/ml NT-Pro-B Natriuret Pep (0-1800) pg/ml Total Protein (6.4-8.2) gm/dl Albumin (3.4-5.0) gm/dl Globulin (2.5-4.0) gm/dl Albumin/Globulin Ratio (0.9-2) Lipase (73-393) U/L TSH (0.300-4.500) uIu/ml Urine Color Yellow Urine Appearance Clear (Clear) Urine pH 7.0 (4.5-7.5) Ur Specific [place] 1.009 (1.000-1.030) Urine Protein Negative (Negative) Urine Glucose (UA) Negative (Negative) Urine Ketones Negative (Negative) Urine Blood Negative (Negative) Urine Nitrite Negative (Negative) Urine Bilirubin Negative (Negative) Urine Urobilinogen Negative (Negative) Ur Leukocyte Esterase Negative (Negative) 10/31/20 Range/Units 18:47 WBC (4.8-10.8) K/uL RBC (4.2-5.4) M/uL Hgb (12.0-16.0) g/dL Hct (37-47) % MCV (80-100) fL MCH (25-34) pg MCHC (32-36) g/dL RDW Std Deviation (36.4-46.3) fL RDW Coeff of Irina (11.5-14.5) % Plt Count (130-400) K/uL MPV (7.4-10.4) fL Immature Gran % (Auto) % Neut % (Auto) % Lymph % (Auto) % Creek % (Auto) % Eos % (Auto) % Baso % (Auto) % Neut # (Auto) (1.4-6.5) K/uL Lymph # (Auto) (1.2-3.4) K/uL Creek # (Auto) (0.11-0.59) K/uL Eos # (Auto) (0-0.5) K/uL Baso # (Auto) (0-0.2) K/uL Immature Gran # (Auto) (0.00-0.02) K/uL PT (9.0-12.0) Seconds INR (0.9-1.1) Sodium 141 (136-145) mmol/L Potassium 4.2 (3.5-5.1) mmol/L Chloride 105 (98-107) mmol/L Carbon Dioxide 31 (21-32) mmol/L Anion Gap 5.0 (3-11) BUN 25 H (7-18) mg/dl Creatinine 1.28 H (0.6-1.2) mg/dl Est Cr Clr Drug Dosing 33.2 ml/min Est GFR ( Amer) 43.2 Est GFR (Non-Af Amer) 37.3 BUN/Creatinine Ratio 19.7 (10-20) Glucose 87 (70-99) mg/dl Calcium 9.5 (8.5-10.1) mg/dl Phosphorus 3.9 (2.5-4.9) mg/dl Magnesium 2.3 (1.8-2.4) mg/dl Total Bilirubin 0.6 (0.2-1) mg/dl Direct Bilirubin 0.2 (0-0.2) mg/dl AST 17 (15-37) U/L ALT 14 (12-78) U/L Alkaline Phosphatase 83 (45-117) U/L Total Creatine Kinase 76 (26-192) U/L Troponin I < 0.015 (0-0.045) ng/ml NT-Pro-B Natriuret Pep 369 (0-1800) pg/ml Total Protein 6.9 (6.4-8.2) gm/dl Albumin 3.3 L (3.4-5.0) gm/dl Globulin 3.6 (2.5-4.0) gm/dl Albumin/Globulin Ratio 0.9 (0.9-2) Lipase 150 (73-393) U/L TSH 4.300 (0.300-4.500) uIu/ml Urine Color Urine Appearance (Clear) Urine pH (4.5-7.5) Ur Specific [place] (1.000-1.030) Urine Protein (Negative) Urine Glucose (UA) (Negative) Urine Ketones (Negative) Urine Blood (Negative) Urine Nitrite (Negative) Urine Bilirubin (Negative) Urine Urobilinogen (Negative) Ur Leukocyte Esterase (Negative) Administered Medications Gabapentin (Gabapentin 300 Mg Cap) 300 mg PO BID SANCHO Stop: 11/30/20 23:03 Last Admin: 10/31/20 23:37 Dose: 300 mg Documented by: [id number] Discontinued Medications Sodium Chloride (Nss) 500 mls @ 999 mls/hr IV .Q31M ONE Stop: 10/31/20 18:40 Last Infusion: 10/31/20 23:00 Dose: 0 mls/hr Documented by: [id number] Admin: 10/31/20 19:04 Dose: 999 mls/hr Documented by: [id number] Ioversol (Optiray 300 100ml) 89 ml IV ONCE ONE Stop: 10/31/20 19:56 Last Admin: 10/31/20 19:56 Dose: 89 ml Documented by: [id number] Imaging Data Radiologist's Impression: Chest X-Ray 10/31/20 17:56 XR chest 1V portable HISTORY: 89 years-old Female Chest Pain . Acute atypical chest pain COMPARISON: Chest radiograph 10/19/2020, CT chest 08/20/2019 TECHNIQUE: Portable AP view of the chest FINDINGS: Cardiac silhouette is enlarged. Calcified plaque of the thoracic aorta. Pulmonary vascular congestion. Similar-appearing retrocardiac left lung base opacity. Degenerative changes of the shoulders and spine. IMPRESSION: 1. Cardiomegaly with pulmonary vascular congestion. 2. Similar appearing left lung base opacity suggests probable atelectasis. ACT 112: Negative or not required by law. The above report was generated using voice recognition software. It may contain grammatical, syntax or spelling errors. Electronically signed by: Meek Etienne M.D. 10/31/2020 7:29 PM Discharge Plan Visit Data Chief Complaint: Weakness Stated Complaint: WEAKNESS, ED Provider: Martin Marquez Discharge Problem: Generalized weakness, Lower extremity edema, Renal insufficiency Patient Disposition: Admitted As Inpatient Discharge Instructions Interventions: ED Discharge Assessment Last Done: 10/31/20 22:51
[2020-10-31] MEDS ORDERED: ACETAMINOPHEN 325 MG TAB PO PRN (23:04)
[2020-10-31] MEDS ORDERED: ONDANSETRON INJ 2 MG/ML 2 ML VIAL IV PRN (23:04)
[2020-10-31] MEDS: GABAPENTIN 300 MG CAP PO SCH (23:37)
--- NOTE | 2020-11-01 03:42 | History & Physical Report ---
Date of Service November 01, 2020 Patient was seen and examined on October 31, 2020 Assessment & Plan (1) Generalized weakness: Generalized weakness/debilitation May be a late sequela of previous urinary tract infection at her age Consult PT/OT. Will likely need inpatient rehab at [facility], which are patient and patient's family's feelings as well. 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 twice daily Present on Admission?: Yes (4) Glaucoma: Continue timolol maleate ophthalmic solution as directed Present on Admission?: Yes (5) Morbid obesity with BMI of 40.0-44.9, adult: Noted as risk factor for near falls Present on Admission?: Yes Admission and Anticipated Discharge Date Admission Date: October 31, 2020 History of Present Illness Chief Complaint: The patient presents to the emergency department with complaint of generalized weakness, that was not present after hospitalization from 10/17- 10/19/2020, but has developed over the past several days. Primary Care Provider: Consuelo Ambriz MD The patient is an 89-year-old female with a past medical history including hiatal hernia, morbid obesity, glaucoma, a acute urinary tract infection, tremor, lower extremity edema, constipation, tic douloureux, kidney stone, asthma and hypertension. During hospitalization from 10/17-10/19/2020, patient was treated for an E. coli UTI with ceftriaxone IV, and did have a follow-up negative outpatient urinalysis and urine culture on 10/29/2020. Her daughter who is with her in the ED [facility], is concerned that the patient did almost fall recently, and even though family is usually available to help her, their feeling is that inpatient rehab would be of benefit for her. The patient denies any present urinary symptoms. Allergies Allergy/AdvReac Type Severity Reaction Status Date / Time Sulfa (Sulfonamide Allergy Unknown HIVES Verified 10/31/20 19:27 Antibiotics) indomethacin AdvReac Unknown SEVERE Verified 10/31/20 19:27 HEADACHE Home Medications Medication Instructions Recorded Confirmed Type aspirin 81 mg tablet,delayed 81 mg PO QAM tab 03/10/19 10/31/20 History release krill oil 500 mg capsule 500 mg PO QAM cap 03/10/19 10/31/20 History timolol maleate 1 drp OPB QAM 08/20/19 10/31/20 History timolol maleate 1 drp OPL HS 08/20/19 10/31/20 History losartan 100 mg tablet 100 mg PO QAM #90 tab 07/26/20 10/31/20 Rx metoprolol succinate 50 mg 50 mg PO QAM #90 tab 07/26/20 10/31/20 Rx tablet,extended release 24 hr triamterene 37.5 0.5 tab PO QAM #45 tab 07/26/20 10/31/20 Rx mg-hydrochlorothiazide 25 mg tablet gabapentin 300 mg PO AMPM 10/17/20 10/31/20 History pantoprazole 40 mg PO QAM #30 tab 10/19/20 10/31/20 Rx ciprofloxacin HCl 500 mg tablet 500 mg PO BID 7 Days #14 tab 10/28/20 10/31/20 Rx Past Med/Surg History Medical History (Updated 11/01/20 @ 03:20 by Martin Marquez MD) Arthritis Bronchitis Cataract Fever Glaucoma Hiatal hernia PNA (pneumonia) Weakness Surgical History H/O tubal ligation Hx of cataract surgery Hx of vaginal hysterectomy S/P knee replacement Family History Sister Breast cancer Father Colorectal cancer Mother Hypertension Denies family history of Ovarian cancer Prostate cancer Diabetes Myocardial infarction Lung cancer Stroke Social History Smoking Status: Former smoker Tobacco Type: Cigarettes Second Hand Exposure: Yes; Hx Alcohol Use: No Hx Substance Use: No Preferred Language: Azeri Communication Ability: Effective 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 Beliefs That Will Affect Care: None marital status: Current Living Situation: Family Current Living Situation Comment: grandso lives with her current occupational status: retired Other Information That Helps Us Care for You: No Feels Safe at Home: Yes Safety Concerns: Feels Safe At This Time caffeine: No Dental Care, Regularly: No Physical Activity Frequency: Does not Exercise Seatbelt Use: always Sunscreen Use: No Assistive Devices: None Review of Systems Review of Systems: The patient denies chest pain, palpitations, shortness of breath, dyspnea on exertion, cough, sore throat, fevers, chills, sweats, nausea, vomiting, diarrhea , constipation, abdominal pain, pelvic pain, blood in urine or stool, dysuria, urinary frequency or urgency, lightheadedness, dizziness, headache, memory loss, loss of consciousness, rash, abnormal bruising or bleeding, focal weakness, numbness or tingling in arms or legs, generalized arthralgias or myalgias, back or neck pain, or night sweats. The review of systems is otherwise negative other than for that already noted above, and at least 10 systems have been reviewed. Physical Exam Physical Exam: The patient is awake, alert and oriented 3, well developed and well nourished, normocephalic and atraumatic, lying in bed and in no acute distress. HEENT--PERRL, EOMI, mucous membranes and oropharynx normal. Neck--supple. No JVD. No bruits. Thyroid normal, trachea midline, no adenopathy. Heart--normal S1 and S2. No murmurs, rubs or gallops. Lungs--clear bilaterally, no respiratory distress, no accessory muscle use. Abdomen--normal bowel sounds and soft. Nontender. Nondistended. Extremities--no cyanosis or clubbing. 1+ bilateral pretibial pitting edema. Dermatologic--normal skin turgor, normal color, no abnormal lymph nodes, no rash. Neurologic--cranial nerves II through XII grossly intact. Rheumatologic--normal range of motion. Psychiatric--normal affect. Results & Data Results & Data ([facility]) Vital Signs (Past 12 Hours) Vital Signs Temp Pulse Pulse Pulse Resp BP BP 10/31/20 23:15 98.2 F 67 20 138/62 10/31/20 22:51 66 18 173/78 H 10/31/20 18:59 72 16 145/70 H 10/31/20 17:57 73 17 10/31/20 17:11 97.9 F 56 L 15 144/81 H Pulse Ox 10/31/20 23:15 94 10/31/20 22:51 98 10/31/20 18:59 95 10/31/20 17:57 98 10/31/20 17:11 96 Laboratory Results Laboratory Results WBC 6.12 K/uL (4.8-10.8) 10/31/20 18:47 RBC 4.30 M/uL (4.2-5.4) 10/31/20 18:47 Hgb 13.6 g/dL (12.0-16.0) 10/31/20 18:47 Hct 40.1 % (37-47) 10/31/20 18:47 MCV 93.3 fL (80-100) 10/31/20 18:47 MCH 31.6 pg (25-34) 10/31/20 18:47 MCHC 33.9 g/dL (32-36) 10/31/20 18:47 RDW Std Deviation 45.4 fL (36.4-46.3) 10/31/20 18:47 RDW Coeff of Irina 13.3 % (11.5-14.5) 10/31/20 18:47 Plt Count 217 K/uL (130-400) 10/31/20 18:47 MPV 12.0 fL (7.4-10.4) H 10/31/20 18:47 Immature Gran % (Auto) 0.2 % 10/31/20 18:47 Neut % (Auto) 61.4 % 10/31/20 18:47 Lymph % (Auto) 27.1 % 10/31/20 18:47 [place] % (Auto) 9.2 % 10/31/20 18:47 Eos % (Auto) 1.6 % 10/31/20 18:47 Baso % (Auto) 0.5 % 10/31/20 18:47 Neut # (Auto) 3.76 K/uL (1.4-6.5) 10/31/20 18:47 Lymph # (Auto) 1.66 K/uL (1.2-3.4) 10/31/20 18:47 [place] # (Auto) 0.56 K/uL (0.11-0.59) 10/31/20 18:47 Eos # (Auto) 0.10 K/uL (0-0.5) 10/31/20 18:47 Baso # (Auto) 0.03 K/uL (0-0.2) 10/31/20 18:47 Immature Gran # (Auto) 0.01 K/uL (0.00-0.02) 10/31/20 18:47 PT 10.6 Seconds (9.0-12.0) 10/31/20 18:47 INR 1.0 (0.9-1.1) 10/31/20 18:47 Sodium 141 mmol/L (136-145) 10/31/20 18:47 Potassium 4.2 mmol/L (3.5-5.1) 10/31/20 18:47 Chloride 105 mmol/L (98-107) 10/31/20 18:47 Carbon Dioxide 31 mmol/L (21-32) 10/31/20 18:47 Anion Gap 5.0 (3-11) 10/31/20 18:47 BUN 25 mg/dl (7-18) H 10/31/20 18:47 Creatinine 1.28 mg/dl (0.6-1.2) H 10/31/20 18:47 Est Cr Clr Drug Dosing 33.2 ml/min 10/31/20 18:47 Est GFR ( Amer) 43.2 10/31/20 18:47 Est GFR (Non-Af Amer) 37.3 10/31/20 18:47 BUN/Creatinine Ratio 19.7 (10-20) 10/31/20 18:47 Glucose 87 mg/dl (70-99) 10/31/20 18:47 Calcium 9.5 mg/dl (8.5-10.1) 10/31/20 18:47 Phosphorus 3.9 mg/dl (2.5-4.9) 10/31/20 18:47 Magnesium 2.3 mg/dl (1.8-2.4) 10/31/20 18:47 Total Bilirubin 0.6 mg/dl (0.2-1) 10/31/20 18:47 Direct Bilirubin 0.2 mg/dl (0-0.2) 10/31/20 18:47 AST 17 U/L (15-37) 10/31/20 18:47 ALT 14 U/L (12-78) 10/31/20 18:47 Alkaline Phosphatase 83 U/L (45-117) 10/31/20 18:47 Total Creatine Kinase 76 U/L (26-192) 10/31/20 18:47 Troponin I < 0.015 ng/ml (0-0.045) 10/31/20 18:47 NT-Pro-B Natriuret Pep 369 pg/ml (0-1800) 10/31/20 18:47 Total Protein 6.9 gm/dl (6.4-8.2) 10/31/20 18:47 Albumin 3.3 gm/dl (3.4-5.0) L 10/31/20 18:47 Globulin 3.6 gm/dl (2.5-4.0) 10/31/20 18:47 Albumin/Globulin Ratio 0.9 (0.9-2) 10/31/20 18:47 Lipase 150 U/L (73-393) 10/31/20 18:47 TSH 4.300 uIu/ml (0.300-4.500) 10/31/20 18:47 Urine Color Yellow 10/31/20 18:25 Urine Appearance Clear (Clear) 10/31/20 18:25 Urine pH 7.0 (4.5-7.5) 10/31/20 18:25 Ur Specific Clarinda 1.009 (1.000-1.030) 10/31/20 18:25 Urine Protein Negative (Negative) 10/31/20 18:25 Urine Glucose (UA) Negative (Negative) 10/31/20 18:25 Urine Ketones Negative (Negative) 10/31/20 18:25 Urine Blood Negative (Negative) 10/31/20 18:25 Urine Nitrite Negative (Negative) 10/31/20 18:25 Urine Bilirubin Negative (Negative) 10/31/20 18:25 Urine Urobilinogen Negative (Negative) 10/31/20 18:25 Ur Leukocyte Esterase Negative (Negative) 10/31/20 18:25 COVID-19 Eval Order CovFluRsv at [facility] 10/31/20 Unknown SARS-CoV-2 (PCR) NEGATIVE (Negative) 10/31/20 Unknown Influenza Type A (PCR) Negative (Neg) 10/31/20 Unknown Influenza Type B (PCR) Negative (Neg) 10/31/20 Unknown RSV (RT-PCR) Negative (Neg) 10/31/20 Unknown Impressions Chest X-Ray 10/31/20 17:56 XR chest 1V portable HISTORY: 89 years-old Female Chest Pain . Acute atypical chest pain COMPARISON: Chest radiograph 10/19/2020, CT chest 08/20/2019 TECHNIQUE: Portable AP view of the chest FINDINGS: Cardiac silhouette is enlarged. Calcified plaque of the thoracic aorta. Pulmonary vascular congestion. Similar-appearing retrocardiac left lung base opacity. Degenerative changes of the shoulders and spine. IMPRESSION: 1. Cardiomegaly with pulmonary vascular congestion. 2. Similar appearing left lung base opacity suggests probable atelectasis. ACT 112: Negative or not required by law. The above report was generated using voice recognition software. It may contain grammatical, syntax or spelling errors. Electronically signed by: Meek Etienne M.D. 10/31/2020 7:29 PM Diagnostic Findings [facility] Patient: JACINTA RAMIREZ (Female) : 32 Status: ER Date: 10/31/20 20:03 Room #: History: UTI generalized weakness Slices: 67 Priors: Tech: Jennyfer Guaman @ [phone] Exams: CT HEAD Contrast: Accession Numbers: [id number] Preliminary Findings Only See Final Report For Complete Findings CT HEAD: No intracranial hemorrhage, hydrocephalus, mass-effect, or edema. Chronic microvascular ischemic changes. Paranasal sinuses and mastoid air cells are clear. Radiologist: Isak Montenegro MD Study ready at 20:13 and initial results transmitted at 20:16 *This report constitutes a preliminary interpretation only. Non-acute findings felt to be unrelated to the clinical presentation may not be discussed in this report. The study will be interpreted and a final report will be generated by the local Radiologist the following shift. To reach the hospital radiology department call [phone]. If a discrepancy is found between the preliminary and final interpretations of this study, please notify us via our Client Portal at [email or web address] can also fax this report with a description of the discrepancy, or include the final report, to our daytime fax number [phone].If faxing, please indicate the severity of discrepancy using one of the following categories: [ ] 1 - Agree/Informational [ ] 2 - Unlikely to Affect Management [ ] 3 - Possible Eventual Change of Management [ ] 4 - Probable Immediate Change of Management For all other patient related information, please fax us at [phone]. [id number] [facility] Patient: JACINTA RAMIREZ (Female) : 32 Status: ER Date: 10/31/20 20:03 Room #: History: UTI generalized weakness Slices: 698 Priors: Tech: Jennyfer Guaman @ [phone] Exams: CT ABDOMEN & PELVIS With Contrast Contrast: IV Amt: 89 ml optiray 300 Accession Numbers: [id number] Preliminary Findings Only See Final Report For Complete Findings CT ABDOMEN & PELVIS With Contrast: No mucosal thickening in the bladder. No obstructive uropathy. Punctate nonobstructing nephrolithiasis on the left. Renal cortical cysts. Very large hiatal hernia containing the entirety of the stomach and portions of the transverse colon. Colonic diverticulosis without acute diverticulitis. Hysterectomy. Liver, gallbladder, pancreas, and spleen are unremarkable. Fat-containing umbilical hernia. Radiologist: Isak Montenegro MD Study ready at 20:29 and initial results transmitted at 20:34 *This report constitutes a preliminary interpretation only. Non-acute findings felt to be unrelated to the clinical presentation may not be discussed in this report. The study will be interpreted and a final report will be generated by the local Radiologist the following shift. To reach the hospital radiology department call [phone]. If a discrepancy is found between the preliminary and final interpretations of this study, please notify us via our Client Portal at [email or web address] can also fax this report with a description of the discrepancy, or include the final report, to our daytime fax number [phone].If faxing, please indicate the severity of discrepancy using one of the following categories: [ ] 1 - Agree/Informational [ ] 2 - Unlikely to Affect Management [ ] 3 - Possible Eventual Change of Management [ ] 4 - Probable Immediate Change of Management For all other patient related information, please fax us at [phone]. [id number] Code Status & VTE Plan Code Status Full code VTE Prophylaxis Plan VTE Prophylaxis will be ordered: Yes PG Care Time/CCT Total # of Minutes Spent Total Time Spent with Patient: Total time spent is greater than 50% in coordination of care (as documented) at patient's floor/unit and/or counseling patient: Coding Level of Care Code 87359 OBS Care - Level 3 Diagnoses Generalized weakness R53.1 HTN (hypertension) I10 Tic douloureux G50.0 Glaucoma H40.9 Morbid obesity with BMI of 40.0-44.9, adult E66.01; Z68.41
[2020-11-01] MEDS: MICONAZOLE NITRATE POWDER 43 GM EXT PRN (06:30)
--- NOTE | 2020-11-01 06:45 | CT Scan Report ---
CT head/brain wo con CLINICAL HISTORY: weakness COMPARISON STUDY: MR the brain dated 05/18/2015 TECHNIQUE: Axial CT of the brain is performed from the vertex to the skull base. IV contrast was not administered for this examination. A dose lowering technique was utilized adhering to the principles of ALARA. CT DOSE: FINDINGS: No intra or extra-axial mass lesions are visualized. There is no CT evidence of acute cortical infarc tion. There is no evidence of midline shift. There is no acute hemorrhage. No calvarial fractures ar e visualized. There are patchy white matter hypodensities likely on a small vessel basis. There is no evidence of pathologic ventricular dilatation. There is no evidence of acute sinusitis IMPRESSION: No acute intracranial findings ACT 112: Negative or not required by law. Electronically signed by: Elier Sahni M.D. 11/01/2020 6:43 AM
--- NOTE | 2020-11-01 07:59 | CT Scan Report ---
CT OF THE ABDOMEN AND PELVIS WITH CONTRAST CLINICAL HISTORY: UTI generalized weakness COMPARISON STUDY: None. TECHNIQUE: Following IV administration of 89 mL of Optiray, axial images of the abdomen and pelvis we re obtained from the lung bases to the proximal femurs. Images were reviewed in the axial, sagittal, and coronal planes. IV contrast was administered without complication. Automated exposure control wa s utilized for the study. A dose lowering technique was utilized adhering to the principles of ALARA . CT DOSE: 2667.23 mGy.cm FINDINGS: Visualized portions of the lower chest partially imaged a large hiatal hernia which contain s a portion of the transverse colon as well as the near entirety of the stomach. No pneumatosis, free air or portal venous gas is present. 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 The liver, adrenal glands and pa ncreas are unremarkable. There is no peripancreatic or pericholecystic infiltration. There is no hydr onephrosis. Numerous left renal calculi measure up to 4 mm. There is moderate bilateral renal cortica l thinning. No ureteral calculi are present. Note is made of a 2.4 cm right renal cyst. Multiple subc entimeter bilateral renal lesions are too small to characterize. There is extensive colonic diverticu losis without evidence for acute diverticulitis. The appendix is unremarkable. There is no ascites or lymphadenopathy. There is no abscess. Fat-containing umbilical hernia is noted. No acute fracture or suspicious lesion is identified within the visualized skeletal structures. IMPRESSION: 1. Left-sided nephrolithiasis. No ureteral calculi or hydronephrosis. 2. Large hiatal hernia which contains the majority of the stomach and a portion of the transverse col on. 3. Extensive colonic diverticulosis without evidence for acute diverticulitis. 4. No bowel obstruction. No bowel wall thickening. ACT 112: Negative or not required by law. Electronically signed by: Avinash Wharton M.D. 11/01/2020 7:58 AM
[2020-11-01] MEDS: GABAPENTIN 300 MG CAP PO SCH ×2 (08:26→19:45)
[2020-11-01] MEDS: ENOXAPARIN INJ 40 MG/0.4 ML SYR SQ SCH (08:27)
[2020-11-01] MEDS: METOPROLOL SUCC 50MG EXT REL TAB PO SCH (08:28)
[2020-11-01] MEDS: LOSARTAN POTASSIUM 50 MG TAB PO SCH (08:28)
[2020-11-01] MEDS: ASPIRIN 81 MG ECTAB PO SCH (08:28)
[2020-11-01] MEDS: TIMOLOL GFS 0.5% OPH SOLN 74 DROPS/5 ML BTL OPB SCH (08:28)
[2020-11-01] MEDS: PANTOprazole 40 MG TAB PO SCH (08:29)
--- NOTE | 2020-11-01 08:50 | Electrocardiogram Report ---
Test Reason : Blood Pressure : / mmHG Vent. Rate : 055 BPM Atrial Rate : 055 BPM P-R Int : 146 ms QRS Dur : 084 ms QT Int : 446 ms P-R-T Axes : 026 -17 046 degrees QTc Int : 426 ms Sinus bradycardia Minimal voltage criteria for LVH, may be normal variant Borderline ECG When compared with ECG of 17-OCT-2020 17:18, Premature atrial complexes are no longer Present Confirmed by Roland Escobedo ([id number]) on 11/01/2020 8:49:41 AM Referred By: REFERRED SELF Confirmed By:Roland Escobedo
[2020-11-01] MEDS ORDERED: NON-FORMULARY MEDICATION (Krill Oil 500 mg capsule) PO SCH (09:00)
--- NOTE | 2020-11-01 15:58 | History & Physical Bridge Note ---
Date of Service November 01, 2020 History & Physical Bridge Note Doing well today. No major issues apart from the weakness. Will work with PT/OT to get possible rehab.
[2020-11-01] MEDS: TIMOLOL GFS 0.5% OPH SOLN 74 DROPS/5 ML BTL OPL SCH (19:46)
[2020-11-02 07:18] LABS: Mean Corpuscular Hemoglobin 31.8 pg (25-34); Mean Corpuscular Hgb Conc 34.2 g/dL (32-36); Mean Corpuscular Volume 92.9 fL (80-100); Mean Platelet Volume 11.9 fL (7.4-10.4); Platelet Count 195 K/uL (130-400); RDW Coefficient of Variation 13.2 % (11.5-14.5); Red Blood Count 4.09 M/uL (4.2-5.4)
[2020-11-02 07:55] LABS: BUN Creatinine Ratio 22.6 (10-20); Calcium 8.6 mg/dl (8.5-10.1); Creatinine Clr Calc Pharmacy 34.8 ml/min; Est GFR (African American) 42.8; Est GFR (Non-African American) 36.9; Magnesium 2.3 mg/dl (1.8-2.4); Potassium 3.8 mmol/L (3.5-5.1)
[2020-11-02] MEDS ORDERED: NORMOSOL-R 500 ML IV ONE (08:03)
[2020-11-02] MEDS: GABAPENTIN 300 MG CAP PO SCH ×2 (08:52→20:57)
[2020-11-02] MEDS: TIMOLOL GFS 0.5% OPH SOLN 74 DROPS/5 ML BTL OPB SCH (08:53)
[2020-11-02] MEDS: LOSARTAN POTASSIUM 50 MG TAB PO SCH (08:53)
[2020-11-02] MEDS: METOPROLOL SUCC 50MG EXT REL TAB PO SCH (08:53)
[2020-11-02] MEDS: PANTOprazole 40 MG TAB PO SCH (08:53)
[2020-11-02] MEDS: ASPIRIN 81 MG ECTAB PO SCH (08:53)
[2020-11-02] MEDS: ENOXAPARIN INJ 40 MG/0.4 ML SYR SQ SCH (08:54)
--- NOTE | 2020-11-02 15:45 | Hospitalist Progress Note ---
Date of Service November 02, 2020 Assessment & Plan (1) Renal insufficiency: Acute renal failure. Baseline Cr ~0.8 - 0.9. - Cr up to 1.3 on admission; stable today. - Given small IVF bolus today given her low PO intake. - CT a/p showed no hydronephrosis, so I don't think renal u/s has much to offer. UA without indication of infection on admission. (2) Generalized weakness: Generalized weakness/debilitation May be a late sequela of previous urinary tract infection at her age. - Consult PT/OT. - Plan for SNF when kidney issues resolved. (3) HTN (hypertension): BP today is 145/85. - Hold triamterene/HCTZ - Hold losartan for ESAU - Continue metoprolol succinate (4) Tic douloureux: - Continue gabapentin 300 mg p.o. twice daily (5) Glaucoma: - Continue timolol maleate ophthalmic solution as directed (6) Morbid obesity with BMI of 40.0-44.9, adult: Noted as risk factor for near falls. (7) DVT prophylaxis: Lovenox 40 mg SQ daily Admission and Anticipated Discharge Date Admission Date: October 31, 2020 Subjective No concerns today. She admits her PO intake may be lower than it should be. Notes not a lot of urine output. Reports no fevers/chills, chest pain, shortness of breath, abdominal pain, nausea, or vomiting. Physical Exam Constitutional: WD/WN, vitals as above Eyes: EOM intact bilaterally; no conjunctival abnormality ENMT: external ear and nose normal, oropharynx normal Neck: trachea midline, no thyromegaly normal visual inspection Respiratory: normal respiratory effort, lungs clear to auscultation no respiratory distress Cardiovascular: RRR, no murmur, no edema Gastrointestinal (Abdomen): Inspection/Auscultation: abdomen normal to inspection; abdomen not distended Musculoskeletal: no cyanosis or clubbing, extremities motor strength 5/5 Skin: no rashes, warm and dry Neurologic: moves all extremities and awake Psychiatric: Orientation: alert, oriented to person and cooperative Results & Data Results & Data ([facility]) Vital Signs (Past 12 Hours) Vital Signs Temp Pulse Resp BP Pulse Ox 11/02/20 15:13 36.8 C 67 16 146/86 H 94 11/02/20 07:26 36.7 C 56 L 16 139/67 94 PG Care Time/CCT Total # of Minutes Spent Total Time Spent with Patient: Total time spent is greater than 50% in coordination of care (as documented) at patient's floor/unit and/or counseling patient: Coding Level of Care Code 06243 Subseq Hosp Care Lvl 2 Diagnoses Renal insufficiency N28.9 Generalized weakness R53.1 HTN (hypertension) I10 Tic douloureux G50.0 Glaucoma H40.9 Morbid obesity with BMI of 40.0-44.9, adult E66.01; Z68.41 DVT prophylaxis Z29.9
[2020-11-02] MEDS: MICONAZOLE NITRATE POWDER 43 GM EXT PRN (20:58)
[2020-11-02] MEDS: TIMOLOL GFS 0.5% OPH SOLN 74 DROPS/5 ML BTL OPL SCH (20:58)
[2020-11-03 06:28] LABS: Hematocrit (blood only) 37.3 % (37-47); Hemoglobin 12.5 g/dL (12.0-16.0); Mean Corpuscular Hemoglobin 30.9 pg (25-34); Mean Corpuscular Hgb Conc 33.5 g/dL (32-36); Mean Corpuscular Volume 92.1 fL (80-100); Mean Platelet Volume 12.1 fL (7.4-10.4); Platelet Count 187 K/uL (130-400); RDW Coefficient of Variation 13.3 % (11.5-14.5); RDW Standard Deviation 45.1 fL (36.4-46.3); Red Blood Count 4.05 M/uL (4.2-5.4); White Blood Count 4.89 K/uL (4.8-10.8)
[2020-11-03 07:07] LABS: BUN Creatinine Ratio 26.3 (10-20); Calcium 8.7 mg/dl (8.5-10.1); Creatinine Clr Calc Pharmacy 38.1 ml/min; Est GFR (African American) 47.7; Est GFR (Non-African American) 41.1
[2020-11-03 08:00] LABS: Potassium 3.8 mmol/L (3.5-5.1)
[2020-11-03 08:01] LABS: Magnesium 2.2 mg/dl (1.8-2.4)
[2020-11-03] MEDS: ASPIRIN 81 MG ECTAB PO SCH (10:20)
[2020-11-03] MEDS: METOPROLOL SUCC 50MG EXT REL TAB PO SCH (10:20)
[2020-11-03] MEDS: GABAPENTIN 300 MG CAP PO SCH (10:20)
[2020-11-03] MEDS: TIMOLOL GFS 0.5% OPH SOLN 74 DROPS/5 ML BTL OPB SCH (10:20)
[2020-11-03] MEDS: PANTOprazole 40 MG TAB PO SCH (10:20)
[2020-11-03] MEDS: ENOXAPARIN INJ 40 MG/0.4 ML SYR SQ SCH (10:21)
--- NOTE | 2020-11-03 16:11 | Discharge Summary ---
Date of Service November 03, 2020 Admission HPI Per Admitting Provider The patient is an 89-year-old female with a past medical history including hiatal hernia, morbid obesity, glaucoma, a acute urinary tract infection, tremor, lower extremity edema, constipation, tic douloureux, kidney stone, asthma and hypertension. During hospitalization from 10/17-10/19/2020, patient was treated for an E. coli UTI with ceftriaxone IV, and did have a follow-up negative outpatient urinalysis and urine culture on 10/29/2020. Her daughter who is with her in the ED cande, is concerned that the patient did almost fall recently, and even though family is usually available to help her, their feeling is that inpatient rehab would be of benefit for her. The patient denies any present urinary symptoms. Principal Diagnosis Weakness, mild ESAU Discharge Exam Constitutional WD/WN, vitals as above Eyes EOM intact bilaterally; no conjunctival abnormality ENMT external ear and nose normal, oropharynx normal Neck trachea midline, no thyromegaly normal visual inspection Respiratory normal respiratory effort, lungs clear to auscultation no respiratory distress Cardiovascular RRR, no murmur, no edema Gastrointestinal (Abdomen) Inspection/Auscultation: abdomen normal to inspection; abdomen not distended Musculoskeletal no cyanosis or clubbing, extremities motor strength 5/5 Skin no rashes, warm and dry Neurologic moves all extremities and awake Psychiatric Orientation: alert, oriented to person and cooperative Discharge Data Allergies Allergy/AdvReac Type Severity Reaction Status Date / Time Sulfa (Sulfonamide Allergy Unknown HIVES Verified 10/31/20 19:27 Antibiotics) indomethacin AdvReac Unknown SEVERE Verified 10/31/20 19:27 HEADACHE Ordered Studies 10/31/20 18:01 CT head/brain wo con Stat 10/31/20 18:09 CT abd pelvis IV con only Stat Hospital Course (1) Renal insufficiency: Acute renal failure. Baseline Cr ~0.8 - 0.9. - Cr up to 1.3 on admission; stable today. - Given small IVF bolus today given her low PO intake. - CT a/p showed no hydronephrosis, so I don't think renal u/s has much to offer. UA without indication of infection on admission. - Down to 1.1 on discharge. Likely some improvement with holding a day of ARB therapy. - Can check BMP in 1 - 2 weeks. (2) Generalized weakness: Generalized weakness/debilitation May be a late sequela of previous urinary tract infection at her age. - Consulted PT/OT -> Plan for SNF. B12 was also slightly low (low-normal). Started B12 supplement on discharge. (3) HTN (hypertension): BP today is 135/85. - Hold triamterene/HCTZ on discharge. - Held losartan for ESAU; restart at lower dose on discharge. - Continue metoprolol succinate (4) Tic douloureux: - Continue gabapentin 300 mg p.o. twice daily (5) Glaucoma: - Continue timolol maleate ophthalmic solution as directed (6) Morbid obesity with BMI of 40.0-44.9, adult: Noted as risk factor for near falls. (7) DVT prophylaxis: Lovenox 40 mg SQ daily Total Time Total Time Spent Total Time Spent (In Minutes): 35 Discharge Plan Discharge Items Patient Disposition: Transfer Half-Way Fac Reason For Visit: GENERALIZED WEAKNESS Discharge Diagnosis: General weakness, mild dehydration Activity: Resume your previous activity Non-emergency contact: Primary Care Provider Call non-emergency contact if: your symptoms worsen Follow-up/Referrals: Consuelo Ambriz MD [Primary Care Provider] - Diet: Heart Healthy Addtl Attending Provider Instructions: Ms. Melton, You were admitted to the hospital with weakness. We noticed your kidney function was a bit worse when you came in which may have been because of some mild dehydration. We have held some of your blood pressure medications which has not cause your blood pressure to go overly high. We will hold it on discharge, and Cruzshirin can add them back on as needed. We also lowered your metoprolol and losartan as again, you hopefully will need less blood pressure control over the next few days. Finally, we also are starting you on a B12 supplement as your B12 level came back low-normal. Low B12 can cause weakness, so we want to avoid this. The supplement is very gentle and should not have any side effects. Pending Studies at Discharge: No Stand-Alone Forms: My [facility] Skilled Items Patient informed of condition?: Yes DNR: No Discharge Level of Care: Skilled Communicable Disease: No Discharge Prognosis: Improving Lines: None Urinary Catheter: No Medications and DC Order Prescriptions: New cyanocobalamin (vitamin B-12) 500 mcg tablet 500 mcg PO DAILY Qty: 30 RF: 0 Continued aspirin 81 mg tablet,delayed release (DR/EC) 81 mg PO QAM RF: 0 krill oil 500 mg capsule 500 mg PO QAM RF: 0 timolol maleate 0.5 % gel forming solution 1 drp OPB QAM RF: 0 timolol maleate 0.5 % gel forming solution 1 drp OPL HS RF: 0 gabapentin 300 mg capsule 300 mg PO AMPM RF: 0 pantoprazole 40 mg Tablet,Delayed Release (Dr/Ec) 40 mg PO QAM Qty: 30 RF: 0 Changed metoprolol succinate 50 mg tablet extended release 24 hr 25 mg PO QAM Qty: 90 RF: 3 losartan 100 mg tablet 50 mg PO QAM Qty: 90 RF: 3 Discontinued triamterene-hydrochlorothiazid 37.5-25 mg tablet 0.5 tab PO QAM Qty: 45 RF: 3 ciprofloxacin HCl [Cipro] 500 mg tablet 500 mg PO BID 7 Days Qty: 14 RF: 0 Discharge Orders: Discharge Order (Routine); Ordered 11/03/20 Ordered By: Shane Olguin Admission Data Admit Date/Time: 11/02/20 15:48 Attending Provider: Shane Olguin Admit Provider: René Dalton Primary Care Provider: Consuelo Ambriz Other Providers: Joey Marcum [place] Other Interventions: Discharge Summary Assessment (RN) Last Done: 11/03/20 11:36 Coding Level of Care Code D/C Day Management >30 mins Diagnoses Renal insufficiency N28.9 Generalized weakness R53.1 HTN (hypertension) I10 Tic douloureux G50.0 Glaucoma H40.9 Morbid obesity with BMI of 40.0-44.9, adult E66.01; Z68.41 DVT prophylaxis Z29.9
== END 2020-11-03 12:31 | DRG 683 ==
LOC: 3N 17:03 → ED 17:03 → SUATTDRO 22:13 → 3N 22:51
DX: Z68.41 Body mass index [BMI] 40.0-44.9, adult; Z79.899 Other long term (current) drug therapy; Z88.2 Allergy status to sulfonamides; Z87.891 Personal history of nicotine dependence; Z88.6 Allergy status to analgesic agent; Z79.82 Long term (current) use of aspirin; G50.0 Trigeminal neuralgia; N17.9 Acute kidney failure, unspecified; Z87.440 Personal history of urinary (tract) infections; E66.01 Morbid (severe) obesity due to excess calories; R53.1 Weakness; H40.9 Unspecified glaucoma; I10 Essential (primary) hypertension; E53.8 Deficiency of other specified B group vitamins; B94.9 Sequelae of unspecified infectious and parasitic disease

== ENCOUNTER 2021-03-29 02:32 | Inpatient (IN) ==
[2021-03-29 03:38] LABS: Alanine Aminotransferase 14 U/L (12-78); Albumin Level 3.4 gm/dl (3.4-5.0); Aspartate Aminotransferase 18 U/L (15-37); BUN Creatinine Ratio 25.7 (10-20); Blood Urea Nitrogen 30 mg/dl (7-18); Carbon Dioxide 29 mmol/L (21-32); Chloride 106 mmol/L (98-107); Creatinine Clr Calc Pharmacy 36.9 ml/min; Est GFR (African American) 47.4 ml/min; Est GFR (Non-African American) 40.9 ml/min; Glucose 100 mg/dl (70-99); Magnesium 1.8 mg/dl (1.8-2.4); Potassium 4.1 mmol/L (3.5-5.1); Sodium 141 mmol/L (136-145)
[2021-03-29] MEDS ORDERED: FUROSEMIDE 40 MG/4 ML VIAL IV STA (03:44)
[2021-03-29 03:45] LABS: Albumin Globulin Ratio 0.9 (0.9-2); Alkaline Phosphatase 87 U/L (45-117); Bilirubin,Total 0.7 mg/dl (0.2-1); Globulin 3.8 gm/dl (2.5-4.0); Total Protein 7.2 gm/dl (6.4-8.2); Troponin I < 0.015 ng/ml (0-0.045)
[2021-03-29 03:50] LABS: Partial Thromboplastin Ratio 0.9; Partial Thromboplastin Time 23.9 Seconds (21.0-31.0); Prothrombin Time 9.9 Seconds (9.0-12.0)
[2021-03-29] MEDS ORDERED: METOPROLOL TARTRATE 1 MG/ML VIAL IV STA ×2 (03:56→06:14)
[2021-03-29 03:58] LABS: Hematocrit (blood only) 42.7 % (37-47); Hemoglobin 14.7 g/dL (12.0-16.0); Mean Corpuscular Hemoglobin 31.6 pg (25-34); Mean Corpuscular Hgb Conc 34.4 g/dL (32-36); Mean Corpuscular Volume 91.8 fL (80-100); Mean Platelet Volume 12.4 fL (7.4-10.4); Platelet Count 130 K/uL (130-400); RDW Coefficient of Variation 13.8 % (11.5-14.5); Red Blood Count 4.65 M/uL (4.2-5.4)
[2021-03-29 03:59] LABS: Basophils # (auto) 0.01 K/uL (0-0.2); Basophils % (auto) 0.1 %; Eosinophils # (auto) 0.04 K/uL (0-0.5); Eosinophils % (auto) 0.4 %; Immature Granulocytes # (auto) 0.03 K/uL (0.00-0.02); Immature Granulocytes % (auto) 0.3 %; Lymphocytes # (auto) 0.75 K/uL (1.2-3.4); Lymphocytes % (auto) 7.6 %; Monocytes # (auto) 0.31 K/uL (0.11-0.59); Monocytes % (auto) 3.1 %; Neutrophils # (auto) 8.76 K/uL (1.4-6.5); Neutrophils % (auto) 88.5 %; Platelet Estimate Decreased (Normal)
[2021-03-29] MEDS ORDERED: VANCOMYCIN CONSULT ACTIVE PRN (06:23)
--- NOTE | 2021-03-29 06:36 | History & Physical Report ---
Date of Service March 29, 2021 Assessment & Plan (1) Recurrent UTI: Plan: No nitrofurantoin as an adverse reaction 4 previous infections this year has been most recently coag negative staph, and Enterococcus faecalis x2 different organisms, and E. coli Placed on vancomycin IV and ceftriaxone IV (2) Generalized weakness: Plan: Generalized weakness/nausea/headache/dizziness- All began within 1 hour of nitrofurantoin dosing, which will be noted as an adverse reaction (3) Tachycardia: Plan: Tachycardia/hypertension/CHF- The patient will be admitted to telemetry for serial cardiac enzymes, serial EKG's, cardiac rhythm monitoring and a 2-D echocardiogram with Dopplers. She did receive furosemide 20 mg IV x1, and Lopressor 5 mg IV x1 from the ED. She is given additional Lopressor 5 mg IV. Continue aspirin, metoprolol succinate and losartan. Hold triamterene/HCTZ Consult cardiology (4) HTN (hypertension): Plan: See above (5) Pneumonia: Plan: Pneumonia/asthma Place on vancomycin IV and ceftriaxone IV (6) Asthma: (7) Glaucoma: Plan: Continue usual eyedrops (8) CHF (congestive heart failure): Plan: See above History of Present Illness Chief Complaint: The patient presents to the emergency department with complaint of feeling nervous and nauseous and lightheaded and dizzy after taking her first dose of nitrofurantoin for urinary tract infection Primary Care Provider: Consuelo Ambriz MD The patient is a 89-year-old female with a past include recurrent urinary tract infections, renal sufficiency, hiatal hernia, morbid obesity, lower extremity edema, tic douloureux, kidney stones, asthma, hypertension, blood,, and peripheral neuropathy. She has history of urinary tract infections, and was initially to be prescribed Augmentin, which was changed to nitrofurantoin before the Augmentin got filled when she was at the pharmacy. She reports taking 1 dose of nitrofurantoin and developed the above symptoms. Allergies Allergy/AdvReac Type Severity Reaction Status Date / Time Sulfa (Sulfonamide Allergy Intermediate HIVES Verified 03/29/21 02:47 Antibiotics) indomethacin AdvReac Severe SEVERE Verified 03/29/21 02:47 HEADACHE Home Medications Medication Instructions Recorded Confirmed Type aspirin 81 mg tablet,delayed 81 mg PO QAM tab 03/10/19 03/29/21 History release krill oil 500 mg capsule 500 mg PO QAM cap 03/10/19 03/29/21 History timolol maleate 0.5 % eye gel 1 drp OPB QAM 08/20/19 03/29/21 History forming solution timolol maleate 0.5 % eye gel 1 drp OPL HS 08/20/19 03/29/21 History forming solution gabapentin 300 mg capsule 300 mg PO AMPM 10/17/20 03/29/21 History cyanocobalamin (vitamin B-12) 500 500 mcg PO DAILY #30 tab 11/03/20 03/29/21 Rx mcg tablet losartan 100 mg tablet 50 mg PO QAM #90 tab 11/03/20 03/29/21 Rx metoprolol succinate 50 mg 25 mg PO QAM #90 tab 11/03/20 03/29/21 Rx tablet,extended release 24 hr cholecalciferol (vitamin D3) 50 50 mcg PO DAILY 02/28/21 03/29/21 History mcg (2,000 unit) capsule triamterene 37.5 1 cap PO QAM 02/28/21 03/29/21 History mg-hydrochlorothiazide 25 mg capsule nitrofurantoin macrocrystal 100 mg 100 mg PO BID #10 cap 03/28/21 03/29/21 Rx capsule Past Med/Surg History Medical History Arthritis Bronchitis Cataract Fever Glaucoma Hiatal hernia PNA (pneumonia) Recurrent UTI Weakness Surgical History H/O tubal ligation Hx of cataract surgery Hx of vaginal hysterectomy S/P knee replacement Family History Sister Breast cancer Father Colorectal cancer Mother Hypertension Denies family history of Ovarian cancer Prostate cancer Diabetes Myocardial infarction Lung cancer Stroke Social History Smoking Status: Never smoker Tobacco Type: Cigarettes Second Hand Exposure: Yes; Hx Alcohol Use: No Hx Substance Use: No Preferred Language: Palauan Communication Ability: Effective Lab Intern Required: No Beliefs That Will Affect Care: None marital status: / Current Living Situation: Family Current Living Situation Comment: grandso lives with her current occupational status: retired Feels Safe at Home: Yes caffeine: No Dental Care, Regularly: No Physical Activity Frequency: Does not Exercise Seatbelt Use: always Sunscreen Use: No Assistive Devices: Walker Review of Systems Review of Systems: The patient denies chest pain, palpitations, cough, lower extremity swelling, sore throat, fevers, chills, sweats, vomiting, diarrhea , constipation, abdominal pain, pelvic pain, blood in urine or stool, memory loss, loss of consciousness, rash, abnormal bruising or bleeding, focal weakness, numbness or tingling in arms or legs, generalized arthralgias or myalgias, back or neck pain, or night sweats. The review of systems is otherwise negative other than for that already noted above, and at least 10 systems have been reviewed. Physical Exam Physical Exam: The patient is awake, alert and oriented 3, well developed and well nourished, normocephalic and atraumatic, lying in bed and in no acute distress. HEENT--PERRL, EOMI, mucous membranes and oropharynx normal. Neck--supple. No JVD. No bruits. Thyroid normal, trachea midline, no adenopathy. Heart--normal S1 and S2. No murmurs, rubs or gallops. Lungs--coarse breath sounds bilaterally. No respiratory distress, no accessory muscle use. Abdomen--normal bowel sounds and soft. Nontender. Nondistended. Morbidly obese Extremities--no cyanosis or clubbing. 1+ bilateral pretibial pitting edema Dermatologic--normal skin turgor, normal color, no abnormal lymph nodes, no rash. Neurologic--cranial nerves II through XII grossly intact. Rheumatologic--normal range of motion. Psychiatric--normal affect. Results & Data Results & Data ([facility]) Vital Signs (Past 12 Hours) Vital Signs Temp Pulse Resp BP Pulse Ox 03/29/21 06:20 137 H 114/80 03/29/21 06:00 114 H 20 110/93 93 03/29/21 05:00 124 H 20 134/77 91 03/29/21 04:33 125 H 22 133/92 91 03/29/21 04:03 114 H 131/108 H 03/29/21 04:01 117 H 22 131/108 H 92 03/29/21 03:08 90 03/29/21 03:02 98.1 F 80 24 190/100 H 90 03/29/21 02:58 124 H 22 180/75 H 93 Laboratory Results Laboratory Results WBC 9.90 K/uL (4.8-10.8) 03/29/21 02:59 RBC 4.65 M/uL (4.2-5.4) 03/29/21 02:59 Hgb 14.7 g/dL (12.0-16.0) 03/29/21 02:59 Hct 42.7 % (37-47) 03/29/21 02:59 MCV 91.8 fL (80-100) 03/29/21 02:59 MCH 31.6 pg (25-34) 03/29/21 02:59 MCHC 34.4 g/dL (32-36) 03/29/21 02:59 RDW Std Deviation 46.0 fL (36.4-46.3) 03/29/21 02:59 RDW Coeff of Irina 13.8 % (11.5-14.5) 03/29/21 02:59 Plt Count 130 K/uL (130-400) 03/29/21 02:59 MPV 12.4 fL (7.4-10.4) H 03/29/21 02:59 Immature Gran % (Auto) 0.3 % 03/29/21 02:59 Neut % (Auto) 88.5 % 03/29/21 02:59 Lymph % (Auto) 7.6 % 03/29/21 02:59 [place] % (Auto) 3.1 % 03/29/21 02:59 Eos % (Auto) 0.4 % 03/29/21 02:59 Baso % (Auto) 0.1 % 03/29/21 02:59 Neut # (Auto) 8.76 K/uL (1.4-6.5) H 03/29/21 02:59 Lymph # (Auto) 0.75 K/uL (1.2-3.4) L 03/29/21 02:59 [place] # (Auto) 0.31 K/uL (0.11-0.59) 03/29/21 02:59 Eos # (Auto) 0.04 K/uL (0-0.5) 03/29/21 02:59 Baso # (Auto) 0.01 K/uL (0-0.2) 03/29/21 02:59 Immature Gran # (Auto) 0.03 K/uL (0.00-0.02) H 03/29/21 02:59 Platelet Estimate Decreased (Normal) L 03/29/21 02:59 PT 9.9 Seconds (9.0-12.0) 03/29/21 02:59 INR 1.0 (0.9-1.1) 03/29/21 02:59 APTT 23.9 Seconds (21.0-31.0) 03/29/21 02:59 PTT Ratio 0.9 03/29/21 02:59 Sodium 141 mmol/L (136-145) 03/29/21 02:59 Potassium 4.1 mmol/L (3.5-5.1) 03/29/21 02:59 Chloride 106 mmol/L (98-107) 03/29/21 02:59 Carbon Dioxide 29 mmol/L (21-32) 03/29/21 02:59 Anion Gap 6.0 (3-11) 03/29/21 02:59 BUN 30 mg/dl (7-18) H 03/29/21 02:59 Creatinine 1.18 mg/dl (0.6-1.2) 03/29/21 02:59 Est Cr Clr Drug Dosing 36.9 ml/min 03/29/21 02:59 Est GFR ( Amer) 47.4 ml/min 03/29/21 02:59 Est GFR (Non-Af Amer) 40.9 ml/min 03/29/21 02:59 BUN/Creatinine Ratio 25.7 (10-20) H 03/29/21 02:59 Glucose 100 mg/dl (70-99) H 03/29/21 02:59 Calcium 9.0 mg/dl (8.5-10.1) 03/29/21 02:59 Magnesium 1.8 mg/dl (1.8-2.4) 03/29/21 02:59 Total Bilirubin 0.7 mg/dl (0.2-1) 03/29/21 02:59 AST 18 U/L (15-37) 03/29/21 02:59 ALT 14 U/L (12-78) 03/29/21 02:59 Alkaline Phosphatase 87 U/L (45-117) 03/29/21 02:59 Troponin I < 0.015 ng/ml (0-0.045) 03/29/21 02:59 Total Protein 7.2 gm/dl (6.4-8.2) 03/29/21 02:59 Albumin 3.4 gm/dl (3.4-5.0) 03/29/21 02:59 Globulin 3.8 gm/dl (2.5-4.0) 03/29/21 02:59 Albumin/Globulin Ratio 0.9 (0.9-2) 03/29/21 02:59 COVID-19 Eval Order Covid19 at [facility] 03/29/21 05:26 ECG Additional Comments: JACINTA RAMIREZ ID:[id number] 29-MAR-2021 03:51:49 [facility]- EDSTAT ROUTINE RETRIEVAL Poor data quality, interpretation may be adversely affected Sinus tachycardia with short VA ST & T wave abnormality, consider lateral ischemia Abnormal ECG When compared with ECG of 29-MAR-2021 02:45, (unconfirmed) Vent. rate has increased BY 48 BPM Criteria for Septal infarct are no longer Present 25mm/s 10mm/mV 150Hz 9.0.9 12SL 241 VANIA: 3 Referred by: REFERRED SELF Unconfirmed Vent. rate 127 BPM VA interval 102 ms QRS duration 76 ms QT/QTc 326/473 ms P-R-T axes 34 -23 100 1930 (89 yr) Female 1in 1lb Room: Loc:15 Hiv Nurse:Kirstin Ayala T Code Status & VTE Plan VTE Prophylaxis Plan VTE Prophylaxis will be ordered: Yes PG Care Time/CCT Total # of Minutes Spent Total Time Spent with Patient: Total time spent is greater than 50% in coordination of care (as documented) at patient's floor/unit and/or counseling patient: Coding Level of Care Code 27360 Initial Inpt Care Lvl 3 Diagnoses Recurrent UTI N39.0 Generalized weakness R53.1 Glaucoma H40.9 HTN (hypertension) I10 Asthma J45.909 Tachycardia R00.0 Pneumonia J18.9 CHF (congestive heart failure) I50.9
[2021-03-29] MEDS: cefTRIAXone SODIUM 2,000 MG in DEXTROSE 5% 50 ML IV SCH (07:10)
[2021-03-29] MEDS ORDERED: VANCOMYCIN HCL 1,000 MG in SODIUM CHLORIDE 0.9% 250 ML IV SCH (09:00)
[2021-03-29] MEDS ORDERED: METOPROLOL TARTRATE 1 MG/ML VIAL IV PRN (09:00)
[2021-03-29] MEDS ORDERED: VANCOMYCIN HCL 2,250 MG in SODIUM CHLORIDE 0.9% 500 ML IV ONE (09:15)
[2021-03-29] MEDS ORDERED: ONDANSETRON INJ 2 MG/ML 2 ML VIAL IV PRN (09:29)
[2021-03-29] MEDS ORDERED: NITROGLYCERIN SL 0.4 MG/TAB TAB SL PRN (09:29)
[2021-03-29] MEDS ORDERED: NON-FORMULARY MEDICATION (Cholecalciferol (Vitamin D3) 50 mcg (2,000 unit) capsule) PO SCH (09:29)
[2021-03-29] MEDS ORDERED: NYSTATIN POWDER 15GM BTL EXT PRN (09:32)
[2021-03-29 10:02] LABS: NT Pro B Type Natriuretic Pept 2593 pg/ml (0-1800); Troponin I < 0.015 ng/ml (0-0.045)
--- NOTE | 2021-03-29 10:42 | XRay Report ---
XR chest 1V portable CLINICAL HISTORY: SOB COMPARISON STUDY: October 31, 2020 FINDINGS: No definite pneumothorax is seen however evaluation is limited because bilateral lung apices are obsc ured by patient's chin.Small left pleural effusion is seen. Interval prominence of reticular opacities at the right lower lung which could represent scattered at electasis or developing infiltrate. Diffuse prominence of pulmonary interstitium is unchanged since prior study and could represent chron ic fibrosis or pulmonary edema. Dense left retrocardiac opacity associated with silhouetting of the left hemidiaphragm could represen t atelectasis or infiltrate. Cardiac silhouette remains mildly enlarged. Aorta is calcified. Pulmonary vasculature is obscured.. Osseous structures: Osteopenia. Degenerative changes of the spine. IMPRESSION: 1. Mild cardiomegaly. Interval development of the small left pleural effusion. Possible pulmonary ed bryce. 2. Reticular opacities at the right lower lung could represent atelectasis or developing infiltrate. Also there is dense left retrocardiac opacity might represent atelectasis or infiltrative process. 3. Atherosclerosis. 4. The rest of findings as above. ACT 112: Negative or not required by law. The above report was generated using voice recognition software. It may contain grammatical, syntax o r spelling errors. Electronically signed by: Virginia Munroe DO 03/29/2021 10:41 AM
[2021-03-29] MEDS: CHOLECALCIFEROL 1,000 UNITS 25 MCG TAB PO SCH (11:04)
[2021-03-29] MEDS: ASPIRIN 81 MG ECTAB PO SCH (11:04)
[2021-03-29] MEDS: LOSARTAN POTASSIUM 50 MG TAB PO SCH (11:04)
[2021-03-29] MEDS: GABAPENTIN 300 MG CAP PO SCH ×2 (11:04→20:02)
[2021-03-29] MEDS: CYANOCOBALAMIN 500 MCG TABLET (VITAMIN B-12) PO SCH (11:04)
[2021-03-29] MEDS: ENOXAPARIN INJ 40 MG/0.4 ML SYR SQ SCH (11:05)
[2021-03-29] MEDS: METOPROLOL SUCC 25MG EXT REL TAB PO SCH (11:05)
[2021-03-29] MEDS: TIMOLOL GFS 0.5% OPH SOLN 74 DROPS/5 ML BTL OPB SCH (11:05)
--- NOTE | 2021-03-29 11:28 | Hospitalist Progress Note ---
Date of Service March 29, 2021 Assessment & Plan (1) CHF (congestive heart failure): Plan: 89yo Female PMH recurrent UTI, obesity, asthma, HTN, valve regurge here for nausea, dizziness, lightheadedness 1hr post nitrofuritoin usage. () CHF -possibly acutely exacerbated by nitrofuritoin one dose, which is on beer's criteria -patient with history cardiac murmur, ED placed on 2L NC, tachycardic -given 20mg Lasix IV and 2 dose lopressor, HR unchanged -CXR Mild cardiomegaly, small left pleural effusion. Possible pulmonary edema. Reticular opacities at the right and left lower lung could represent atelectasis or developing infiltrate -PE demonstrates bibasalar lung crackles -given another dose 20mg lasix IV, lung crackles resolved -echo = EF 60-65%, mild concentric LVH, mild dilated RV, severe b/l atrial dilation, mod. tricuspid regurge, mild pulm HTN RVSP 45 mmHg (improved compared to 2017) -cardio consulted () Recurrent UTI -multiple UTI in past year symptomatic with urinary freq and rare AMS -occasional Ucx demonstrate abx resistance -last Ucx 03/23 showed coag neg staph not saprophyticus, pansensitive -was on Augmentin, switched to nitrofuritoin which precipitated ED visit -in ED recieved vanc and ceftriaxone, vanc d/c'd ()Obesity -rash noted under groin skin folds likely fungal, nystatin powder ordered (2) Recurrent UTI: Admission and Anticipated Discharge Date Admission Date: March 29, 2021 Supervising Physician Co-Signing Physician Notes I personally examined the patient and verified all bynum points of history and exam, discussed case, and agree with decision making with Dr Hart. Feeling better. Breathing easier. Does not really feel fast heart rate. Case discussed with cardiology, input greatly appreciated. Vitals noted, in general she is awake and alert pleasant no distress. Cardio is tachycardic. Lungs are clear to auscultation bilaterally except for may be a very faint rale base right but overall clear no rhonchi no wheezes good effort no accessory muscle use. Neuro without focal deficits. Acute HFpEFprobably mediated by tachycardia. Unclear if Macrobid reac tion/possible allergy plays a role in causing the tachycardia or if it is just a de abisai arrhythmia. Control rate, diuresed. Breathing appears to be betterwean oxygen. Once breathing is okay on room air and she is walking on room air, and her heart rates are more reasonable, then we can look towards home. Urinary tract infectioncontinue antibiotic coverage. Otherwise as above, DVT prophylaxis with Lovenox. Subjective 89yo Female PMH recurrent UTI, obesity, asthma, HTN, valve regurge here for nausea, dizziness, lightheadedness 1hr post nitrofuritoin usage. Patient states she is occasionally incontinent at basetime, wears regular underwear, can well when she has a UTI when she has increased urinary frequency and rare mental fog. Patient has a history of abx resistance. At home she eats pudding/yogurt for breakfast/lunch, her grandson cooks dinner typically meat. No change in diet, increase in fluid intake 2-3 dyas b/f hospitalization. She says she had taken 2 doses augmentin before her antibiotics were changed, experienced symptoms 1 hr after taking nitrofuritoin. Patient denies history of HF, arrythmia. Currently experiencing some palpitation but states her dizziness and nausea have resolved. Patient denies SOB on 2L NC. Later in day patient denied SOB on room air. Patient lives in a mobile home with her grandson, children live next door. Patient was the one to call the ambulance. Review of Systems Review of Systems: Positive palpitations Negative fever chills Negative headache dizziness Negative chest pain SOB Negative nausea vomitting diarrhea constipation Negative numbness tingling swelling Physical Exam Physical Exam: General: Well appearing, age appropriate Heart: regular tachycardic, +S1 S2, no murmurs/gallops/rubs Lungs: b/l crackles on lung bases Abd: erythematous rash noted under groin skin folds, no rash noted around vulva. soft, NT/ND, +BS Extremities: +1 pitting edema on right leg up to knee with pain on palpation, right knee surgery scar noted Results & Data Results & Data ([facility]) Vital Signs (Past 12 Hours) Vital Signs Temp Pulse Pulse Pulse Resp BP BP 03/29/21 10:15 36.9 C 122 H 25 H 111/70 03/29/21 09:29 37 C 81 21 111/70 03/29/21 08:40 101 H 18 92/66 L 03/29/21 07:00 128 H 18 120/72 03/29/21 06:20 137 H 114/80 03/29/21 06:00 114 H 20 110/93 03/29/21 05:00 124 H 20 134/77 03/29/21 04:33 125 H 22 133/92 03/29/21 04:03 114 H 131/108 H 03/29/21 04:01 117 H 22 131/108 H 03/29/21 03:08 03/29/21 03:02 36.7 C 80 24 190/100 H 03/29/21 02:58 124 H 22 180/75 H Pulse Ox 03/29/21 10:15 93 03/29/21 09:29 95 03/29/21 08:40 93 03/29/21 07:00 93 03/29/21 06:20 03/29/21 06:00 93 03/29/21 05:00 91 03/29/21 04:33 91 03/29/21 04:03 03/29/21 04:01 92 03/29/21 03:08 90 03/29/21 03:02 90 03/29/21 02:58 93 Laboratory Results 03/29/21 03/29/21 03/29/21 Range/Units 10:55 09:33 09:33 WBC (4.8-10.8) K/uL RBC (4.2-5.4) M/uL Hgb (12.0-16.0) g/dL Hct (37-47) % MCV (80-100) fL MCH (25-34) pg MCHC (32-36) g/dL RDW Std Deviation (36.4-46.3) fL RDW Coeff of Irina (11.5-14.5) % Plt Count (130-400) K/uL MPV (7.4-10.4) fL Immature Gran % (Auto) % Neut % (Auto) % Lymph % (Auto) % [place] % (Auto) % Eos % (Auto) % Baso % (Auto) % Neut # (Auto) (1.4-6.5) K/uL Lymph # (Auto) (1.2-3.4) K/uL Huntington # (Auto) (0.11-0.59) K/uL Eos # (Auto) (0-0.5) K/uL Baso # (Auto) (0-0.2) K/uL Immature Gran # (Auto) (0.00-0.02) K/uL Platelet Estimate (Normal) PT (9.0-12.0) Seconds INR (0.9-1.1) APTT (21.0-31.0) Seconds PTT Ratio Sodium (136-145) mmol/L Potassium (3.5-5.1) mmol/L Chloride (98-107) mmol/L Carbon Dioxide (21-32) mmol/L Anion Gap (3-11) BUN (7-18) mg/dl Creatinine (0.6-1.2) mg/dl Est Cr Clr Drug Dosing ml/min Est GFR ( Amer) ml/min Est GFR (Non-Af Amer) ml/min BUN/Creatinine Ratio (10-20) Glucose (70-99) mg/dl Lactate 1.6 (0.4-2.0) mmol/L Calcium (8.5-10.1) mg/dl Magnesium (1.8-2.4) mg/dl Total Bilirubin (0.2-1) mg/dl AST (15-37) U/L ALT (12-78) U/L Alkaline Phosphatase (45-117) U/L Troponin I < 0.015 (0-0.045) ng/ml NT-Pro-B Natriuret Pep 2593 H (0-1800) pg/ml Total Protein (6.4-8.2) gm/dl Albumin (3.4-5.0) gm/dl Globulin (2.5-4.0) gm/dl Albumin/Globulin Ratio (0.9-2) Nasal Screen MRSA (PCR) Negative (Negative) COVID-19 Eval Order SARS-CoV-2 (PCR) (Negative) 03/29/21 03/29/21 03/29/21 Range/Units 05:26 05:26 02:59 WBC (4.8-10.8) K/uL RBC (4.2-5.4) M/uL Hgb (12.0-16.0) g/dL Hct (37-47) % MCV (80-100) fL MCH (25-34) pg MCHC (32-36) g/dL RDW Std Deviation (36.4-46.3) fL RDW Coeff of Irina (11.5-14.5) % Plt Count (130-400) K/uL MPV (7.4-10.4) fL Immature Gran % (Auto) % Neut % (Auto) % Lymph % (Auto) % [place] % (Auto) % Eos % (Auto) % Baso % (Auto) % Neut # (Auto) (1.4-6.5) K/uL Lymph # (Auto) (1.2-3.4) K/uL Huntington # (Auto) (0.11-0.59) K/uL Eos # (Auto) (0-0.5) K/uL Baso # (Auto) (0-0.2) K/uL Immature Gran # (Auto) (0.00-0.02) K/uL Platelet Estimate (Normal) PT (9.0-12.0) Seconds INR (0.9-1.1) APTT (21.0-31.0) Seconds PTT Ratio Sodium 141 (136-145) mmol/L Potassium 4.1 (3.5-5.1) mmol/L Chloride 106 (98-107) mmol/L Carbon Dioxide 29 (21-32) mmol/L Anion Gap 6.0 (3-11) BUN 30 H (7-18) mg/dl Creatinine 1.18 (0.6-1.2) mg/dl Est Cr Clr Drug Dosing 36.9 ml/min Est GFR ( Amer) 47.4 ml/min Est GFR (Non-Af Amer) 40.9 ml/min BUN/Creatinine Ratio 25.7 H (10-20) Glucose 100 H (70-99) mg/dl Lactate (0.4-2.0) mmol/L Calcium 9.0 (8.5-10.1) mg/dl Magnesium 1.8 (1.8-2.4) mg/dl Total Bilirubin 0.7 (0.2-1) mg/dl AST 18 (15-37) U/L ALT 14 (12-78) U/L Alkaline Phosphatase 87 (45-117) U/L Troponin I < 0.015 (0-0.045) ng/ml NT-Pro-B Natriuret Pep (0-1800) pg/ml Total Protein 7.2 (6.4-8.2) gm/dl Albumin 3.4 (3.4-5.0) gm/dl Globulin 3.8 (2.5-4.0) gm/dl Albumin/Globulin Ratio 0.9 (0.9-2) Nasal Screen MRSA (PCR) (Negative) COVID-19 Eval Order Covid19 at [facility] SARS-CoV-2 (PCR) NEGATIVE (Negative) 03/29/21 03/29/21 Range/Units 02:59 02:59 WBC 9.90 (4.8-10.8) K/uL RBC 4.65 (4.2-5.4) M/uL Hgb 14.7 (12.0-16.0) g/dL Hct 42.7 (37-47) % MCV 91.8 (80-100) fL MCH 31.6 (25-34) pg MCHC 34.4 (32-36) g/dL RDW Std Deviation 46.0 (36.4-46.3) fL RDW Coeff of Irina 13.8 (11.5-14.5) % Plt Count 130 (130-400) K/uL MPV 12.4 H (7.4-10.4) fL Immature Gran % (Auto) 0.3 % Neut % (Auto) 88.5 % Lymph % (Auto) 7.6 % Huntington % (Auto) 3.1 % Eos % (Auto) 0.4 % Baso % (Auto) 0.1 % Neut # (Auto) 8.76 H (1.4-6.5) K/uL Lymph # (Auto) 0.75 L (1.2-3.4) K/uL Huntington # (Auto) 0.31 (0.11-0.59) K/uL Eos # (Auto) 0.04 (0-0.5) K/uL Baso # (Auto) 0.01 (0-0.2) K/uL Immature Gran # (Auto) 0.03 H (0.00-0.02) K/uL Platelet Estimate Decreased L (Normal) PT 9.9 (9.0-12.0) Seconds INR 1.0 (0.9-1.1) APTT 23.9 (21.0-31.0) Seconds PTT Ratio 0.9 Sodium (136-145) mmol/L Potassium (3.5-5.1) mmol/L Chloride (98-107) mmol/L Carbon Dioxide (21-32) mmol/L Anion Gap (3-11) BUN (7-18) mg/dl Creatinine (0.6-1.2) mg/dl Est Cr Clr Drug Dosing ml/min Est GFR ( Amer) ml/min Est GFR (Non-Af Amer) ml/min BUN/Creatinine Ratio (10-20) Glucose (70-99) mg/dl Lactate (0.4-2.0) mmol/L Calcium (8.5-10.1) mg/dl Magnesium (1.8-2.4) mg/dl Total Bilirubin (0.2-1) mg/dl AST (15-37) U/L ALT (12-78) U/L Alkaline Phosphatase (45-117) U/L Troponin I (0-0.045) ng/ml NT-Pro-B Natriuret Pep (0-1800) pg/ml Total Protein (6.4-8.2) gm/dl Albumin (3.4-5.0) gm/dl Globulin (2.5-4.0) gm/dl Albumin/Globulin Ratio (0.9-2) Nasal Screen MRSA (PCR) (Negative) COVID-19 Eval Order SARS-CoV-2 (PCR) (Negative) Diagnostic Findings Impressions Chest X-Ray 03/29/21 03:09 XR chest 1V portable CLINICAL HISTORY: SOB COMPARISON STUDY: October 31, 2020 FINDINGS: No definite pneumothorax is seen however evaluation is limited because bilateral lung apices are obscured by patient's chin.Small left pleural effusion is seen. Interval prominence of reticular opacities at the right lower lung which could represent scattered atelectasis or developing infiltrate. Diffuse prominence of pulmonary interstitium is unchanged since prior study and could represent chronic fibrosis or pulmonary edema. Dense left retrocardiac opacity associated with silhouetting of the left hemidiaphragm could represent atelectasis or infiltrate. Cardiac silhouette remains mildly enlarged. Aorta is calcified. Pulmonary vasculature is obscured.. Osseous structures: Osteopenia. Degenerative changes of the spine. IMPRESSION: 1. Mild cardiomegaly. Interval development of the small left pleural effusion. Possible pulmonary edema. 2. Reticular opacities at the right lower lung could represent atelectasis or developing infiltrate. Also there is dense left retrocardiac opacity might represent atelectasis or infiltrative process. 3. Atherosclerosis. 4. The rest of findings as above. ACT 112: Negative or not required by law. The above report was generated using voice recognition software. It may contain grammatical, syntax or spelling errors. Electronically signed by: Virginia Munroe DO 03/29/2021 10:41 AM Medications Administered Current Inpatient Medications Acetaminophen (Acetaminophen 325 Mg Tab) 650 mg PO Q4H PRN PRN Reason: Pain or Fever Stop: 04/28/21 09:28 Aspirin (Aspirin 81 Mg Ectab) 81 mg PO QAM [facility] Stop: 04/28/21 09:28 Last Admin: 03/29/21 11:04 Dose: 81 mg Documented by: Cyanocobalamin (Cyanocobalamin 500 Mcg Tablet (Vitamin B-12)) 500 mcg PO DAILY [facility] Stop: 04/28/21 09:28 Last Admin: 03/29/21 11:04 Dose: 500 mcg Documented by: Diltiazem HCl (Diltiazem Hcl 30 Mg Tab) 30 mg PO Q6 [facility] Stop: 04/28/21 17:59 Enoxaparin Sodium (Enoxaparin Inj 40 Mg/0.4 Ml Syr) 40 mg SQ Q24H [facility] Stop: 04/28/21 09:28 Last Admin: 03/29/21 11:05 Dose: 40 mg Documented by: Gabapentin (Gabapentin 300 Mg Cap) 300 mg PO [facility] Stop: 04/28/21 09:28 Last Admin: 03/29/21 11:04 Dose: 300 mg Documented by: Ceftriaxone Sodium 2,000 mg/ (Dextrose) 70 mls @ 100 mls/hr IV Q24H [facility]; Protocol Stop: 04/05/21 06:59 Last Infusion: 03/29/21 08:02 Dose: Infused Documented by: Losartan Potassium (Losartan Potassium 50 Mg Tab) 50 mg PO QAM [facility] Stop: 04/28/21 09:28 Last Admin: 03/29/21 11:04 Dose: 50 mg Documented by: Metoprolol Succinate (Metoprolol Succ 25mg Ext Rel Tab) 25 mg PO QAM [facility] Stop: 04/28/21 09:28 Last Admin: 03/29/21 11:05 Dose: 25 mg Documented by: Metoprolol Tartrate (Metoprolol Tartrate 1 Mg/Ml Vial) 5 mg IV Q4 PRN PRN Reason: Tachycardia Stop: 04/28/21 08:59 Nitroglycerin (Nitroglycerin Sl 0.4 Mg/Tab Tab) 0.4 mg SL UD PRN PRN Reason: Chest Pain Stop: 04/28/21 09:28 Nystatin (Nystatin Powder 15gm Btl) 1 appln EXT BID PRN PRN Reason: Affected Skin Folds Stop: 04/28/21 09:31 Ondansetron HCl (Ondansetron Inj 2 Mg/Ml 2 Ml Vial) 4 mg IV Q6H PRN PRN Reason: Nausea Stop: 04/28/21 09:28 Timolol Maleate (Timolol Gfs 0.5% Oph Soln 74 Drops/5 Ml Btl) 1 drops OPB QAM [facility] Stop: 04/28/21 09:28 Last Admin: 03/29/21 11:05 Dose: 1 drops Documented by: Timolol Maleate (Timolol Gfs 0.5% Oph Soln 74 Drops/5 Ml Btl) 1 drops OPL HS [facility] Stop: 04/28/21 20:59 Vitamin D (Cholecalciferol 1,000 Units 25 Mcg Tab) 2,000 units PO DAILY [facility] Stop: 04/28/21 09:59 Last Admin: 03/29/21 11:04 Dose: 2,000 units Documented by: Resident Activity Tracking Resident Involvement: Resident Care Provided Care Provided: Adult Hospital Medicine
[2021-03-29] MEDS ORDERED: FUROSEMIDE 20 MG in SYRINGE 0 ML IV ONE (11:30)
--- NOTE | 2021-03-29 14:23 | XCELERA ---
[id number] [id number]\[email or web address]\[id number]
--- NOTE | 2021-03-29 15:03 | Pharmacy Report ---
Pharmacy Abx Dose Short Note - Date of Service March 29, 2021 - Assessment & Plan Assessment 89 year old F receiving ceftriaxone/vancomycin for treatment of recurrent UTI, discussed with provider possible monotherapy with ceftriaxone or switch to unasyn if enterococcus coverage desired, last culture growing coag negative staph oxacillin sensitive. Continuing vancomycin for now. Plan Vancomycin * 2250 mg loading dose * Half life estimate ~20 hours, will obtain random level in AM to help further guide dosing as this would be around time of next dose Pharmacy will continue to follow and will adjust dose/frequency as necessary. Thank you.
[2021-03-29] MEDS: dilTIAZem HCL 30 MG TAB PO SCH (17:00)
--- NOTE | 2021-03-29 17:33 | Cardiology Consultation ---
Date of Consultation March 29, 2021 Assessment & Plan (1) Paroxysmal atrial tachycardia: (2) HTN (hypertension): (3) Edema: ASSESSMENT/PLAN: 1. Paroxysmal atrial tachycardia: Rhythm appears to be atrial tachycardia, but cannot exclude atrial flutter at times. She has received intermittent doses of intravenous metoprolol and received oral metoprolol chronically. Could consider titrating metoprolol, but for now, start diltiazem 30 mg Q 6 hours p.o.. May not be able to control this arrhythmia well with rate-controlling medications. Could consider antiarrhythmic medication tomorrow if no significant improvement. There is no urgency as she is tolerating it well, and therefore will try AV dale blocking agents first. Can titrate as necessary. 2. Hypertension: Blood pressure has been normotensive or hypertensive for the most part. Blood pressure may improve with treatment plan as above with diltiazem. 3. Edema: She reports this as chronic and stable. She otherwise does not appear to be significantly hypervolemic and has no symptoms of heart failure such as shortness of breath. She takes triamterene/HCTZ at home. Monitor fluid balance. 4. Disposition: Plan of care discussed with Dr. Luz of the primary hospitalist service. Dr. Moraes, her primary hemp fiber taker off, will resume her cardiology care tomorrow. Please call with any other questions or concerns. Thank you for allowing me to participate in the care of your patient. Please call for any other questions or concerns. Sincerely, Zaire Lucio M.D. History of Present Illness Reason for Consultation: SVT Requesting Physician: Dr. Dalton Attending Physician: Sebas Luz DO History of Present Illness Ms. Melton is a pleasant 89-year-old female with a history significant for hypertension, pulmonary hypertension, obstructive sleep apnea, COPD and recurrent UTI. Her primary hemp fiber taker off is Dr. Moraes. She was admitted on 03/29/2021 for recurrent UTI. She reported an adverse reaction to nitrofurantoin and was placed on intravenous vancomycin and ceftria xone on admission. While here, she was noted to have frequent tachycardic episodes on telemetry and ECG with intermittent sinus rhythm. She admits that she sometimes has palpitations described as a thumping sensation. She has been experiencing palpitations since yesterday but also recalls having them in the past. In the past, they were short-lived and would resolve with deep inspiration. Her palpitations today have not been severe. She denies shortness of breath, chest pain, orthopnea, syncope, near-syncope, or bleeding. She has chronic but stable lower extremity edema. She ambulates with a walker typically. While here, she has received intermittent doses of metoprolol tartrate intravenously. She also is on metoprolol succinate 25 mg daily, which is her home dose. Review of systems: As above. Review of systems otherwise negative/unremarkable. Family history: Mother had some form of heart condition. Social history: She denies tobacco or alcohol abuse. She lives at home. Her grandson lives with her. She is . She had 7 kids in total, 3 of which are living. She was unaccompanied in her hospital room. Allergies Allergy/AdvReac Type Severity Reaction Status Date / Time Sulfa (Sulfonamide Allergy Intermediate HIVES Verified 03/29/21 02:47 Antibiotics) indomethacin AdvReac Severe SEVERE Verified 03/29/21 02:47 HEADACHE Home Medications Medication Instructions Recorded Confirmed Type aspirin 81 mg tablet,delayed 81 mg PO QAM tab 03/10/19 03/29/21 History release krill oil 500 mg capsule 500 mg PO QAM cap 03/10/19 03/29/21 History timolol maleate 0.5 % eye gel 1 drp OPB QAM 08/20/19 03/29/21 History forming solution timolol maleate 0.5 % eye gel 1 drp OPL HS 08/20/19 03/29/21 History forming solution gabapentin 300 mg capsule 300 mg PO AMPM 10/17/20 03/29/21 History cyanocobalamin (vitamin B-12) 500 500 mcg PO DAILY #30 tab 11/03/20 03/29/21 Rx mcg tablet losartan 100 mg tablet 50 mg PO QAM #90 tab 11/03/20 03/29/21 Rx metoprolol succinate 50 mg 25 mg PO QAM #90 tab 11/03/20 03/29/21 Rx tablet,extended release 24 hr cholecalciferol (vitamin D3) 50 50 mcg PO DAILY 02/28/21 03/29/21 History mcg (2,000 unit) capsule triamterene 37.5 1 cap PO QAM 02/28/21 03/29/21 History mg-hydrochlorothiazide 25 mg capsule nitrofurantoin macrocrystal 100 mg 100 mg PO BID #10 cap 03/28/21 03/29/21 Rx capsule Patient History Medical History Arthritis Bronchitis Cataract Fever Glaucoma Hiatal hernia PNA (pneumonia) Recurrent UTI Weakness Surgical History H/O tubal ligation Hx of cataract surgery Hx of vaginal hysterectomy S/P knee replacement Family History Sister Breast cancer Father Colorectal cancer Mother Hypertension Denies family history of Ovarian cancer Prostate cancer Diabetes Myocardial infarction Lung cancer Stroke Social History Smoking Status: Former smoker Tobacco Type: Cigarettes Second Hand Exposure: No; Hx Alcohol Use: No Hx Substance Use: No Preferred Language: Jamaican Communication Ability: Effective 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 Alert and oriented. HEENT: Anicteric sclera. Neck: No JVD. No bruits. Normal carotid upstrokes bilaterally. Cardiac: PMI was nonpalpable. No ventricular heave. Tachycardic but regular. Normal S1-S2. No murmurs, rubs, or gallops. Pulmonary: Clear to auscultation bilaterally without wheezes, rales, or rhonchi. Abdomen: Soft, nontender, nondistended, with normoactive bowel sounds. No bruits noted. Extremities: 2+ radial pulses bilaterally. 2+ posterior tibialis pulses bilaterally. One to 2+ bilateral lower extremity edema (chronic per patient). No cyanosis. Psychiatric: Affect appears appropriate. Results & Data ([facility]) Vital Signs (Past 12 Hours) Vital Signs Temp Pulse Pulse Pulse Resp BP BP 03/29/21 16:14 36.9 C 130 H 25 H 143/72 H 03/29/21 11:41 36.8 C 98 H 16 105/86 03/29/21 10:15 36.9 C 122 H 25 H 111/70 03/29/21 09:29 37 C 81 21 111/70 03/29/21 08:40 101 H 18 92/66 L 03/29/21 07:00 128 H 18 120/72 03/29/21 06:20 137 H 114/80 03/29/21 06:00 114 H 20 110/93 Pulse Ox 03/29/21 16:14 91 03/29/21 11:41 95 03/29/21 10:15 93 03/29/21 09:29 95 03/29/21 08:40 93 03/29/21 07:00 93 03/29/21 06:20 03/29/21 06:00 93 Laboratory Results Laboratory Results - last 24 hr 03/29/21 03/29/21 03/29/21 02:59 02:59 02:59 WBC 9.90 RBC 4.65 Hgb 14.7 Hct 42.7 MCV 91.8 MCH 31.6 MCHC 34.4 RDW Std Deviation 46.0 RDW Coeff of Irina 13.8 Plt Count 130 MPV 12.4 H Immature Gran % (Auto) 0.3 Neut % (Auto) 88.5 Lymph % (Auto) 7.6 Geary % (Auto) 3.1 Eos % (Auto) 0.4 Baso % (Auto) 0.1 Neut # (Auto) 8.76 H Lymph # (Auto) 0.75 L Geary # (Auto) 0.31 Eos # (Auto) 0.04 Baso # (Auto) 0.01 Immature Gran # (Auto) 0.03 H Platelet Estimate Decreased L PT 9.9 INR 1.0 APTT 23.9 PTT Ratio 0.9 Sodium 141 Potassium 4.1 Chloride 106 Carbon Dioxide 29 Anion Gap 6.0 BUN 30 H Creatinine 1.18 Est Cr Clr Drug Dosing 36.9 Est GFR ( Amer) 47.4 Est GFR (Non-Af Amer) 40.9 BUN/Creatinine Ratio 25.7 H Glucose 100 H Lactate Calcium 9.0 Magnesium 1.8 Total Bilirubin 0.7 AST 18 ALT 14 Alkaline Phosphatase 87 Troponin I < 0.015 NT-Pro-B Natriuret Pep Total Protein 7.2 Albumin 3.4 Globulin 3.8 Albumin/Globulin Ratio 0.9 Nasal Screen MRSA (PCR) COVID-19 Eval Order SARS-CoV-2 (PCR) 03/29/21 03/29/21 03/29/21 05:26 05:26 09:33 WBC RBC Hgb Hct MCV MCH MCHC RDW Std Deviation RDW Coeff of Irina Plt Count MPV Immature Gran % (Auto) Neut % (Auto) Lymph % (Auto) Geary % (Auto) Eos % (Auto) Baso % (Auto) Neut # (Auto) Lymph # (Auto) Geary # (Auto) Eos # (Auto) Baso # (Auto) Immature Gran # (Auto) Platelet Estimate PT INR APTT PTT Ratio Sodium Potassium Chloride Carbon Dioxide Anion Gap BUN Creatinine Est Cr Clr Drug Dosing Est GFR ( Amer) Est GFR (Non-Af Amer) BUN/Creatinine Ratio Glucose Lactate Calcium Magnesium Total Bilirubin AST ALT Alkaline Phosphatase Troponin I < 0.015 NT-Pro-B Natriuret Pep 2593 H Total Protein Albumin Globulin Albumin/Globulin Ratio Nasal Screen MRSA (PCR) COVID-19 Eval Order Covid19 at [facility] SARS-CoV-2 (PCR) NEGATIVE 03/29/21 03/29/21 09:33 10:55 WBC RBC Hgb Hct MCV MCH MCHC RDW Std Deviation RDW Coeff of Irina Plt Count MPV Immature Gran % (Auto) Neut % (Auto) Lymph % (Auto) Geary % (Auto) Eos % (Auto) Baso % (Auto) Neut # (Auto) Lymph # (Auto) Geary # (Auto) Eos # (Auto) Baso # (Auto) Immature Gran # (Auto) Platelet Estimate PT INR APTT PTT Ratio Sodium Potassium Chloride Carbon Dioxide Anion Gap BUN Creatinine Est Cr Clr Drug Dosing Est GFR ( Amer) Est GFR (Non-Af Amer) BUN/Creatinine Ratio Glucose Lactate 1.6 Calcium Magnesium Total Bilirubin AST ALT Alkaline Phosphatase Troponin I NT-Pro-B Natriuret Pep Total Protein Albumin Globulin Albumin/Globulin Ratio Nasal Screen MRSA (PCR) Negative COVID-19 Eval Order SARS-CoV-2 (PCR) Diagnostic Findings Telemetry personally reviewed: Frequent episodes of tachycardia, suspect atrial tachycardia but cannot exclude atrial flutter. Frequent episodes of sinus rhythm, which are short-lived. Predominant rhythm today has been probable atrial tachycardia. Echo 03/29/2021: EF 60-65%. Normal wall motion. Mild LVH. Mildly dilated RV with normal systolic function. Severe biatrial dilation. Moderate TR. RVSP 45. ECGs personally reviewed: ECG 03/29/2021 at 3:51 a.m.: Sinus complexes, but predominantly (probable) atrial tachycardia. Nonspecific ST abnormality. ECG 03/29/2021 at 2:45 a.m.: Sinus rhythm 79 beats per minute. Possible septal infarct. Chest x-ray 03/29/2021: small left pleural effusion. Reticular opacities right lower lung. Dense left retrocardiac opacity. Per Radiology. Medications Administered Current Inpatient Medications Acetaminophen (Acetaminophen 325 Mg Tab) 650 mg PO Q4H PRN PRN Reason: Pain or Fever Stop: 04/28/21 09:28 Aspirin (Aspirin 81 Mg Ectab) 81 mg PO QAM [facility] Stop: 04/28/21 09:28 Last Admin: 03/29/21 11:04 Dose: 81 mg Documented by: Cyanocobalamin (Cyanocobalamin 500 Mcg Tablet (Vitamin B-12)) 500 mcg PO DAILY [facility] Stop: 04/28/21 09:28 Last Admin: 03/29/21 11:04 Dose: 500 mcg Documented by: Diltiazem HCl (Diltiazem Hcl 30 Mg Tab) 30 mg PO Q6 [facility] Stop: 04/28/21 17:59 Last Admin: 03/29/21 17:00 Dose: 30 mg Documented by: Enoxaparin Sodium (Enoxaparin Inj 40 Mg/0.4 Ml Syr) 40 mg SQ Q24H [facility] Stop: 04/28/21 09:28 Last Admin: 03/29/21 11:05 Dose: 40 mg Documented by: Gabapentin (Gabapentin 300 Mg Cap) 300 mg PO AMHS [facility] Stop: 04/28/21 09:28 Last Admin: 03/29/21 11:04 Dose: 300 mg Documented by: Ceftriaxone Sodium 2,000 mg/ (Dextrose) 70 mls @ 100 mls/hr IV Q24H [facility]; Protocol Stop: 04/05/21 06:59 Last Infusion: 03/29/21 08:02 Dose: Infused Documented by: Losartan Potassium (Losartan Potassium 50 Mg Tab) 50 mg PO QAM [facility] Stop: 04/28/21 09:28 Last Admin: 03/29/21 11:04 Dose: 50 mg Documented by: Metoprolol Succinate (Metoprolol Succ 25mg Ext Rel Tab) 25 mg PO QAM [facility] Stop: 04/28/21 09:28 Last Admin: 03/29/21 11:05 Dose: 25 mg Documented by: Metoprolol Tartrate (Metoprolol Tartrate 1 Mg/Ml Vial) 5 mg IV Q4 PRN PRN Reason: Tachycardia Stop: 04/28/21 08:59 Nitroglycerin (Nitroglycerin Sl 0.4 Mg/Tab Tab) 0.4 mg SL UD PRN PRN Reason: Chest Pain Stop: 04/28/21 09:28 Nystatin (Nystatin Powder 15gm Btl) 1 appln EXT BID PRN PRN Reason: Affected Skin Folds Stop: 04/28/21 09:31 Ondansetron HCl (Ondansetron Inj 2 Mg/Ml 2 Ml Vial) 4 mg IV Q6H PRN PRN Reason: Nausea Stop: 04/28/21 09:28 Timolol Maleate (Timolol Gfs 0.5% Oph Soln 74 Drops/5 Ml Btl) 1 drops OPB QAM [facility] Stop: 04/28/21 09:28 Last Admin: 03/29/21 11:05 Dose: 1 drops Documented by: Timolol Maleate (Timolol Gfs 0.5% Oph Soln 74 Drops/5 Ml Btl) 1 drops OPL HS [facility] Stop: 04/28/21 20:59 Vitamin D (Cholecalciferol 1,000 Units 25 Mcg Tab) 2,000 units PO DAILY [facility] Stop: 04/28/21 09:59 Last Admin: 03/29/21 11:04 Dose: 2,000 units Documented by: PG Care Time/CCT Total # of Minutes Spent Total Time Spent with Patient: Total time spent is greater than 50% in coordination of care (as documented) at patient's floor/unit and/or counseling patient: Coding Level of Care Code 76955 Initial Inpt Care Lvl 3 Diagnoses Paroxysmal atrial tachycardia I47.1 HTN (hypertension) I10 Edema R60.9
--- NOTE | 2021-03-29 19:00 | Emergency Department Note ---
History of Present Illness General Chief complaint: Shortness of Breath/Dyspnea Stated complaint: SHORT OF BREATH/NAUSEA - TOOK NEW MED TODAY Home Medications Medication Instructions Recorded Confirmed Type aspirin 81 mg tablet,delayed 81 mg PO QAM tab 03/10/19 03/29/21 History release krill oil 500 mg capsule 500 mg PO QAM cap 03/10/19 03/29/21 History timolol maleate 0.5 % eye gel 1 drp OPB QAM 08/20/19 03/29/21 History forming solution timolol maleate 0.5 % eye gel 1 drp OPL HS 08/20/19 03/29/21 History forming solution gabapentin 300 mg capsule 300 mg PO AMPM 10/17/20 03/29/21 History cyanocobalamin (vitamin B-12) 500 500 mcg PO DAILY #30 tab 11/03/20 03/29/21 Rx mcg tablet losartan 100 mg tablet 50 mg PO QAM #90 tab 11/03/20 03/29/21 Rx metoprolol succinate 50 mg 25 mg PO QAM #90 tab 11/03/20 03/29/21 Rx tablet,extended release 24 hr cholecalciferol (vitamin D3) 50 50 mcg PO DAILY 02/28/21 03/29/21 History mcg (2,000 unit) capsule triamterene 37.5 1 cap PO QAM 02/28/21 03/29/21 History mg-hydrochlorothiazide 25 mg capsule nitrofurantoin macrocrystal 100 mg 100 mg PO BID #10 cap 03/28/21 03/29/21 Rx capsule Allergies Allergy/AdvReac Type Severity Reaction Status Date / Time Sulfa (Sulfonamide Allergy Intermediate HIVES Verified 03/29/21 02:47 Antibiotics) indomethacin AdvReac Severe SEVERE Verified 03/29/21 02:47 HEADACHE Past Med/Surg History Medical History Arthritis Bronchitis Cataract Fever Glaucoma Hiatal hernia PNA (pneumonia) Recurrent UTI Weakness Surgical History H/O tubal ligation Hx of cataract surgery Hx of vaginal hysterectomy S/P knee replacement Family History Sister Breast cancer Father Colorectal cancer Mother Hypertension Denies family history of Ovarian cancer Prostate cancer Diabetes Myocardial infarction Lung cancer Stroke Social History Smoking Status: Former smoker Tobacco Type: Cigarettes Second Hand Exposure: No; Hx Alcohol Use: No Hx Substance Use: No Preferred Language: Norwegian Communication Ability: Effective 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 Heels Required: No Beliefs That Will Affect Care: None marital status: / Current Living Situation: Family Current Living Situation Comment: [place] wialysia pt current occupational status: retired Feels Safe at Home: Yes caffeine: No Dental Care, Regularly: No Physical Activity Frequency: Does not Exercise Seatbelt Use: always Sunscreen Use: No Assistive Devices: Cane, Denture - Upper, Denture - Lower, Glasses and Walker Physical Exam Vital Signs Vital Signs - 24 hr 03/29/21 02:58 03/29/21 03:02 03/29/21 03:07 Temperature 36.7 C Temperature Source Oral Pulse Rate 124 H 80 Pulse Rate from SpO2 Sensor 127 H Respiratory Rate 22 24 Respiratory Effort / Characteristics Spontaneous Labored Spontaneous Labored Blood Pressure 180/75 H 190/100 H Blood Pressure Mean 110 130 Pulse Oximetry 93 90 Oxygen Delivery Method Nasal Cannula Room Air Oxygen Flow Rate 2 Sepsis New/Unexplained Change in Mental Status N/A Sepsis Action Taken by Nursing No Action Required Oxygen Flow Rate - Titration Pulse Oximetry Post Tiitration 03/29/21 03:08 03/29/21 04:01 03/29/21 04:03 Temperature Temperature Source Pulse Rate 117 H 114 H Pulse Rate from SpO2 Sensor 116 H Respiratory Rate 22 Respiratory Effort / Characteristics Blood Pressure 131/108 H 131/108 H Blood Pressure Mean 115 Pulse Oximetry 90 92 Oxygen Delivery Method Room Air Nasal Cannula Oxygen Flow Rate 2 Sepsis New/Unexplained Change in Mental Status Sepsis Action Taken by Nursing Oxygen Flow Rate - Titration 2 Pulse Oximetry Post Tiitration 97 03/29/21 04:33 03/29/21 05:00 03/29/21 06:00 Temperature Temperature Source Pulse Rate 125 H 124 H 114 H Pulse Rate from SpO2 Sensor 133 H 123 H 109 H Respiratory Rate 22 20 20 Respiratory Effort / Characteristics Blood Pressure 133/92 134/77 110/93 Blood Pressure Mean 105 96 98 Pulse Oximetry 91 91 93 Oxygen Delivery Method Nasal Cannula Nasal Cannula Nasal Cannula Oxygen Flow Rate 2 2 2 Sepsis New/Unexplained Change in Mental Status Sepsis Action Taken by Nursing Oxygen Flow Rate - Titration Pulse Oximetry Post Tiitration 03/29/21 06:20 Temperature Temperature Source Pulse Rate 137 H Pulse Rate from SpO2 Sensor Respiratory Rate Respiratory Effort / Characteristics Blood Pressure 114/80 Blood Pressure Mean Pulse Oximetry Oxygen Delivery Method Oxygen Flow Rate Sepsis New/Unexplained Change in Mental Status Sepsis Action Taken by Nursing Oxygen Flow Rate - Titration Pulse Oximetry Post Tiitration Course Administered Medications Aspirin (Aspirin 81 Mg Ectab) [facility] Stop: 04/28/21 09:28 Last Admin: 03/29/21 11:04 Dose: 81 mg Documented by: [id number] Cyanocobalamin (Cyanocobalamin 500 Mcg Tablet (Vitamin B-12)) 500 mcg PO DAILY [facility] Stop: 04/28/21 09:28 Last Admin: 03/29/21 11:04 Dose: 500 mcg Documented by: [id number] Diltiazem HCl (Diltiazem Hcl 30 Mg Tab) 30 mg PO Q6 [facility] Stop: 04/28/21 17:59 Last Admin: 03/29/21 17:00 Dose: 30 mg Documented by: [id number] Enoxaparin Sodium (Enoxaparin Inj 40 Mg/0.4 Ml Syr) 40 mg SQ Q24H [facility] Stop: 04/28/21 09:28 Last Admin: 03/29/21 11:05 Dose: 40 mg Documented by: [id number] Gabapentin (Gabapentin 300 Mg Cap) 300 mg PO AMHS [facility] Stop: 04/28/21 09:28 Last Admin: 03/29/21 11:04 Dose: 300 mg Documented by: [id number] Ceftriaxone Sodium 2,000 mg/ (Dextrose) 70 mls @ 100 mls/hr IV Q24H [facility]; Protocol Stop: 04/05/21 06:59 Last Infusion: 03/29/21 08:02 Dose: 0 mls/hr Documented by: [id number] Admin: 03/29/21 07:10 Dose: 100 mls/hr Documented by: [id number] Losartan Potassium (Losartan Potassium 50 Mg Tab) [facility] Stop: 04/28/21 09:28 Last Admin: 03/29/21 11:04 Dose: 50 mg Documented by: [id number] Metoprolol Succinate (Metoprolol Succ 25mg Ext Rel Tab) 25 mg PO QAM [facility] Stop: 04/28/21 09:28 Last Admin: 03/29/21 11:05 Dose: 25 mg Documented by: [id number] Timolol Maleate (Timolol Gfs 0.5% Oph Soln 74 Drops/5 Ml Btl) 1 drops OPB QA [facility] Stop: 04/28/21 09:28 Last Admin: 03/29/21 11:05 Dose: 1 drops Documented by: [id number] Vitamin D (Cholecalciferol 1,000 Units 25 Mcg Tab) 2,000 units PO DAILY [facility] Stop: 04/28/21 09:59 Last Admin: 03/29/21 11:04 Dose: 2,000 units Documented by: [id number] Discontinued Medications Furosemide (Furosemide 40 Mg/4 Ml Vial) 20 mg IV NOW STA Stop: 03/29/21 03:45 Last Admin: 03/29/21 04:05 Dose: 20 mg Documented by: [id number] Vancomycin HCl 2,250 mg/ (Sodium Chloride) 545 mls @ 200 mls/hr IV NOW ONE Stop: 03/29/21 11:58 Last Infusion: 03/29/21 14:17 Dose: 0 mls/hr Documented by: [id number] Admin: 03/29/21 11:03 Dose: 200 mls/hr Documented by: [id number] Furosemide 20 mg/ Syringe 2 mls @ 4 mls/min IV ONE ONE Stop: 03/29/21 11:31 Last Admin: 03/29/21 13:10 Dose: 4 mls/min Documented by: [id number] Metoprolol Tartrate (Metoprolol Tartrate 1 Mg/Ml Vial) 5 mg IV NOW STA Stop: 03/29/21 03:57 Last Admin: 03/29/21 04:03 Dose: 5 mg Documented by: [id number] Metoprolol Tartrate (Metoprolol Tartrate 1 Mg/Ml Vial) 5 mg IV NOW STA Stop: 03/29/21 06:15 Last Admin: 03/29/21 06:20 Dose: 2.5 mg Documented by: [id number] Medical Decision Making Laboratory Data Result diagrams: 03/29/21 02:59 03/29/21 02:59 Lab Results 03/29/21 03/29/21 03/29/21 Range/Units 02:59 02:59 02:59 WBC 9.90 (4.8-10.8) K/uL RBC 4.65 (4.2-5.4) M/uL Hgb 14.7 (12.0-16.0) g/dL Hct 42.7 (37-47) % MCV 91.8 (80-100) fL MCH 31.6 (25-34) pg MCHC 34.4 (32-36) g/dL RDW Std Deviation 46.0 (36.4-46.3) fL RDW Coeff of Irina 13.8 (11.5-14.5) % Plt Count 130 (130-400) K/uL MPV 12.4 H (7.4-10.4) fL Immature Gran % (Auto) 0.3 % Neut % (Auto) 88.5 % Lymph % (Auto) 7.6 % Fergus % (Auto) 3.1 % Eos % (Auto) 0.4 % Baso % (Auto) 0.1 % Neut # (Auto) 8.76 H (1.4-6.5) K/uL Lymph # (Auto) 0.75 L (1.2-3.4) K/uL Fergus # (Auto) 0.31 (0.11-0.59) K/uL Eos # (Auto) 0.04 (0-0.5) K/uL Baso # (Auto) 0.01 (0-0.2) K/uL Immature Gran # (Auto) 0.03 H (0.00-0.02) K/uL Platelet Estimate Decreased L (Normal) PT 9.9 (9.0-12.0) Seconds INR 1.0 (0.9-1.1) APTT 23.9 (21.0-31.0) Seconds PTT Ratio 0.9 Sodium 141 (136-145) mmol/L Potassium 4.1 (3.5-5.1) mmol/L Chloride 106 (98-107) mmol/L Carbon Dioxide 29 (21-32) mmol/L Anion Gap 6.0 (3-11) BUN 30 H (7-18) mg/dl Creatinine 1.18 (0.6-1.2) mg/dl Est Cr Clr Drug Dosing 36.9 ml/min Est GFR ( Amer) 47.4 ml/min Est GFR (Non-Af Amer) 40.9 ml/min BUN/Creatinine Ratio 25.7 H (10-20) Glucose 100 H (70-99) mg/dl Calcium 9.0 (8.5-10.1) mg/dl Magnesium 1.8 (1.8-2.4) mg/dl Total Bilirubin 0.7 (0.2-1) mg/dl AST 18 (15-37) U/L ALT 14 (12-78) U/L Alkaline Phosphatase 87 (45-117) U/L Troponin I < 0.015 (0-0.045) ng/ml Total Protein 7.2 (6.4-8.2) gm/dl Albumin 3.4 (3.4-5.0) gm/dl Globulin 3.8 (2.5-4.0) gm/dl Albumin/Globulin Ratio 0.9 (0.9-2) COVID-19 Eval Order SARS-CoV-2 (PCR) (Negative) 03/29/21 03/29/21 Range/Units 05:26 05:26 WBC (4.8-10.8) K/uL RBC (4.2-5.4) M/uL Hgb (12.0-16.0) g/dL Hct (37-47) % MCV (80-100) fL MCH (25-34) pg MCHC (32-36) g/dL RDW Std Deviation (36.4-46.3) fL RDW Coeff of Irina (11.5-14.5) % Plt Count (130-400) K/uL MPV (7.4-10.4) fL Immature Gran % (Auto) % Neut % (Auto) % Lymph % (Auto) % Fergus % (Auto) % Eos % (Auto) % Baso % (Auto) % Neut # (Auto) (1.4-6.5) K/uL Lymph # (Auto) (1.2-3.4) K/uL Fergus # (Auto) (0.11-0.59) K/uL Eos # (Auto) (0-0.5) K/uL Baso # (Auto) (0-0.2) K/uL Immature Gran # (Auto) (0.00-0.02) K/uL Platelet Estimate (Normal) PT (9.0-12.0) Seconds INR (0.9-1.1) APTT (21.0-31.0) Seconds PTT Ratio Sodium (136-145) mmol/L Potassium (3.5-5.1) mmol/L Chloride (98-107) mmol/L Carbon Dioxide (21-32) mmol/L Anion Gap (3-11) BUN (7-18) mg/dl Creatinine (0.6-1.2) mg/dl Est Cr Clr Drug Dosing ml/min Est GFR ( Amer) ml/min Est GFR (Non-Af Amer) ml/min BUN/Creatinine Ratio (10-20) Glucose (70-99) mg/dl Calcium (8.5-10.1) mg/dl Magnesium (1.8-2.4) mg/dl Total Bilirubin (0.2-1) mg/dl AST (15-37) U/L ALT (12-78) U/L Alkaline Phosphatase (45-117) U/L Troponin I (0-0.045) ng/ml Total Protein (6.4-8.2) gm/dl Albumin (3.4-5.0) gm/dl Globulin (2.5-4.0) gm/dl Albumin/Globulin Ratio (0.9-2) COVID-19 Eval Order Covid19 at [facility] SARS-CoV-2 (PCR) NEGATIVE (Negative) Imaging Data Radiologist's Impression: Chest X-Ray 03/29/21 03:09 XR chest 1V portable CLINICAL HISTORY: SOB COMPARISON STUDY: October 31, 2020 FINDINGS: No definite pneumothorax is seen however evaluation is limited because bilateral lung apices are obscured by patient's chin.Small left pleural effusion is seen. Interval prominence of reticular opacities at the right lower lung which could represent scattered atelectasis or developing infiltrate. Diffuse prominence of pulmonary interstitium is unchanged since prior study and could represent chronic fibrosis or pulmonary edema. Dense left retrocardiac opacity associated with silhouetting of the left hemidiaphragm could represent atelectasis or infiltrate. Cardiac silhouette remains mildly enlarged. Aorta is calcified. Pulmonary vasculature is obscured.. Osseous structures: Osteopenia. Degenerative changes of the spine. IMPRESSION: 1. Mild cardiomegaly. Interval development of the small left pleural effusion. Possible pulmonary edema. 2. Reticular opacities at the right lower lung could represent atelectasis or developing infiltrate. Also there is dense left retrocardiac opacity might represent atelectasis or infiltrative process. 3. Atherosclerosis. 4. The rest of findings as above. ACT 112: Negative or not required by law. The above report was generated using voice recognition software. It may contain grammatical, syntax or spelling errors. Electronically signed by: Virginia Munroe DO 03/29/2021 10:41 AM Discharge Plan Visit Data Chief Complaint: Shortness of Breath/Dyspnea Stated Complaint: SHORT OF BREATH/NAUSEA - TOOK NEW MED TODAY ED Provider: Shirlene Welch Patient Disposition: Admitted As Inpatient Discharge Instructions Interventions: ED Discharge Assessment Last Done: 03/29/21 08:40
[2021-03-29] MEDS: TIMOLOL GFS 0.5% OPH SOLN 74 DROPS/5 ML BTL OPL SCH (20:02)
[2021-03-30] MEDS: dilTIAZem HCL 30 MG TAB PO SCH ×4 (00:13→17:13)
[2021-03-30 05:34] LABS: Basophils # (auto) 0.01 K/uL (0-0.2); Basophils % (auto) 0.1 %; Eosinophils # (auto) 0.07 K/uL (0-0.5); Eosinophils % (auto) 0.7 %; Hematocrit (blood only) 40.7 % (37-47); Hemoglobin 13.2 g/dL (12.0-16.0); Immature Granulocytes # (auto) 0.03 K/uL (0.00-0.02); Immature Granulocytes % (auto) 0.3 %; Lymphocytes % (auto) 10.3 %; Mean Corpuscular Hemoglobin 31.1 pg (25-34); Mean Corpuscular Hgb Conc 32.4 g/dL (32-36); Mean Platelet Volume 12.2 fL (7.4-10.4); Monocytes # (auto) 0.41 K/uL (0.11-0.59); Monocytes % (auto) 3.8 %; Neutrophils # (auto) 9.04 K/uL (1.4-6.5); Neutrophils % (auto) 84.8 %; Platelet Count 131 K/uL (130-400); RDW Standard Deviation 49.5 fL (36.4-46.3); Red Blood Count 4.24 M/uL (4.2-5.4); White Blood Count 10.66 K/uL (4.8-10.8)
[2021-03-30 05:52] LABS: Albumin Level 2.6 gm/dl (3.4-5.0); BUN Creatinine Ratio 18.7 (10-20); Calcium 8.9 mg/dl (8.5-10.1); Creatinine Clr Calc Pharmacy 25.5 ml/min; Est GFR (African American) 30.2 ml/min; Est GFR (Non-African American) 26.1 ml/min
[2021-03-30 05:55] LABS: Albumin Globulin Ratio 0.7 (0.9-2); Globulin 3.7 gm/dl (2.5-4.0); Total Protein 6.3 gm/dl (6.4-8.2)
[2021-03-30] MEDS: cefTRIAXone SODIUM 2,000 MG in DEXTROSE 5% 50 ML IV SCH (06:24)
--- NOTE | 2021-03-30 06:39 | Electrocardiogram Report ---
Test Reason : Blood Pressure : / mmHG Vent. Rate : 079 BPM Atrial Rate : 079 BPM P-R Int : 144 ms QRS Dur : 080 ms QT Int : 368 ms P-R-T Axes : 029 -25 080 degrees QTc Int : 421 ms Normal sinus rhythm Possible Left atrial enlargement Possible Septal infarct , age undetermined Abnormal ECG When compared with ECG of 31-OCT-2020 17:12, No significant change was found Confirmed by Dio Lucio ([id number]) on 03/30/2021 6:39:36 AM Referred By: REFERRED SELF Confirmed By:Dio Lucio
--- NOTE | 2021-03-30 06:41 | Electrocardiogram Report ---
Test Reason : Blood Pressure : / mmHG Vent. Rate : 127 BPM Atrial Rate : 127 BPM P-R Int : 102 ms QRS Dur : 076 ms QT Int : 326 ms P-R-T Axes : 034 -23 100 degrees QTc Int : 473 ms Poor data quality, interpretation may be adversely affected Sinus rhythm with probable atrial tachycardia Nonspecific ST and T wave abnormality Abnormal ECG When compared with ECG of 29-MAR-2021 02:45, Vent. rate has increased BY 48 BPM Atrial runs are now present Confirmed by Dio Lucio ([id number]) on 03/30/2021 6:41:04 AM Referred By: REFERRED SELF Confirmed By:Dio Lucio
[2021-03-30] MEDS: ACETAMINOPHEN 325 MG TAB PO PRN (09:08)
[2021-03-30] MEDS: ASPIRIN 81 MG ECTAB PO SCH (09:09)
[2021-03-30] MEDS: GABAPENTIN 300 MG CAP PO SCH ×2 (09:10→21:01)
[2021-03-30] MEDS: CHOLECALCIFEROL 1,000 UNITS 25 MCG TAB PO SCH (09:10)
[2021-03-30] MEDS: CYANOCOBALAMIN 500 MCG TABLET (VITAMIN B-12) PO SCH (09:10)
[2021-03-30] MEDS: LOSARTAN POTASSIUM 50 MG TAB PO SCH (09:11)
[2021-03-30] MEDS: TIMOLOL GFS 0.5% OPH SOLN 74 DROPS/5 ML BTL OPB SCH (09:12)
[2021-03-30] MEDS: ENOXAPARIN INJ 40 MG/0.4 ML SYR SQ SCH (09:13)
--- NOTE | 2021-03-30 09:43 | Hospitalist Progress Note ---
Date of Service March 30, 2021 Assessment & Plan (1) CHF (congestive heart failure): Plan: 89yo Female PMH recurrent UTI, obesity, asthma, HTN, valve regurge here for nausea, dizziness, lightheadedness 1hr post nitrofuritoin usage. () CHF -possibly acutely exacerbated by nitrofuritoin one dose, which is on beer's criteria -patient with history cardiac murmur, ED placed on 2L NC, tachycardic -given 20mg Lasix IV and 2 dose lopressor, HR unchanged -CXR Mild cardiomegaly, small left pleural effusion. Possible pulmonary edema. Reticular opacities at the right and left lower lung could represent atelectasis or developing infiltrate -PE demonstrates bibasalar lung crackles -given another dose 20mg lasix IV, lung crackles resolved -echo = EF 60-65%, mild concentric LVH, mild dilated RV, severe b/l atrial dilation, mod. tricuspid regurge, mild pulm HTN RVSP 45 mmHg (improved compared to 2016) -cardio consulted, placed on diltiazem 30mg q6hr for rate control, HR down to 50-60's sinus --> will switch to metoprolol succinate 25mg BID 03/30 and check am for rate control () Deconditioning -patient hospitalized 1 midnight, lives with grandson in mobile home, should be close to her baseline -PT/OT ordered, recommend rehab via SNF () Recurrent UTI -multiple UTI in past year symptomatic with urinary freq and rare AMS -occasional Ucx demonstrate abx resistance -last Ucx 03/23 showed coag neg staph not saprophyticus, pansensitive -was on Augmentin, switched to nitrofuritoin which precipitated ED visit -in ED recieved vanc and ceftriaxone, vanc d/c'd ()Obesity -rash noted under groin skin folds likely fungal, nystatin powder ordered FENa: heart healthy Code Status: full DVT PPX: lovenox PT/OT: ordered, recommend inpt rehab Case Management: [] Dispo: rehab at [facility] PGY 1, FCM (2) Recurrent UTI: (3) Generalized weakness: (4) Physical deconditioning: Admission and Anticipated Discharge Date Admission Date: March 29, 2021 Supervising Physician Co-Signing Physician Notes I personally examined the patient and verified all bynum points of history and exam, discussed case, and agree with decision making with Dr Hart. Chest and breathing are doing better. Very weak. Had not gotten out of bed. Whenever asked patient to try, she struggled to even sit upright in the bed, noting that this was much weaker than she normally is at home. Vitals noted, in general she is awake and alert pleasant no distress. Cardio regular rate. Breathing unlabored no accessory muscle use good effort. Skin shows no rashes no pallor or icterus. Neuro without focal deficits. Acute HFpEFprobably mediated by tachycardia. Unclear if Macrobid reaction/possible allergy plays a role in causing the tachycardia or if it is just a de abisai arrhythmia. Now diuresedcreatinine bumped suggest that she is at a dry point, no further diuresis necessary. Rate is now controlled on diltiazem in addition to metoprolol. Appreciate cardiology input. Urinary tract infectioncontinue antibiotic coverage. Okay to switch to p.o. Weakness/deconditioningPT OT eval and treat, unfortunately appears she will need rehab. Otherwise as above, DVT prophylaxis with Lovenox. Stable for transfer to medical. Subjective 89yo Female PMH recurrent UTI, obesity, asthma, HTN, valve regurge here for nausea, dizziness, lightheadedness 1hr post nitrofuritoin usage. Patient seen at bedside comfortable, no complaints, ate more than she did yesterday. Patient is eager to go home. Patient evaluated by attending in evening and by PT/OT, is deconditioned at high risk of falls. Patient agreed to stay overnight and consider inpatient rehab. Review of Systems Review of Systems: Negative fever chills Negative headache dizziness Negative chest pain SOB palpitations Negative nausea vomitting diarrhea constipation Negative numbness tingling swelling Physical Exam Physical Exam: General: Well appearing, age appropriate Heart: regular tachycardic, +S1 S2, no murmurs/gallops/rubs Lungs: cta b/l, slight exhalatory wheeze Abd: erythematous rash noted under groin skin folds, no rash noted around vulva. soft, NT/ND, +BS Extremities: +1 pitting edema on right leg up to knee with pain on palpation, right knee surgery scar noted Results & Data Results & Data ([facility]) Vital Signs (Past 12 Hours) Vital Signs Temp Pulse Pulse Resp BP Pulse Ox 09/29/21 05:32 36.9 C 60 18 117/57 L 95 03/30/21 00:09 36.7 C 59 L 18 104/67 94 03/29/21 23:24 59 L Laboratory Results 03/30/21 03/30/21 03/30/21 Range/Units 05:14 05:14 01:39 WBC 10.66 (4.8-10.8) K/uL RBC 4.24 (4.2-5.4) M/uL Hgb 13.2 (12.0-16.0) g/dL Hct 40.7 (37-47) % MCV 96.0 (80-100) fL MCH 31.1 (25-34) pg MCHC 32.4 (32-36) g/dL RDW Std Deviation 49.5 H (36.4-46.3) fL RDW Coeff of Irina 14.0 (11.5-14.5) % Plt Count 131 (130-400) K/uL MPV 12.2 H (7.4-10.4) fL Immature Gran % (Auto) 0.3 % Neut % (Auto) 84.8 % Lymph % (Auto) 10.3 % Dixon % (Auto) 3.8 % Eos % (Auto) 0.7 % Baso % (Auto) 0.1 % Neut # (Auto) 9.04 H (1.4-6.5) K/uL Lymph # (Auto) 1.10 L (1.2-3.4) K/uL Dixon # (Auto) 0.41 (0.11-0.59) K/uL Eos # (Auto) 0.07 (0-0.5) K/uL Baso # (Auto) 0.01 (0-0.2) K/uL Immature Gran # (Auto) 0.03 H (0.00-0.02) K/uL Sodium 139 (136-145) mmol/L Potassium 4.0 (3.5-5.1) mmol/L Chloride 103 (98-107) mmol/L Carbon Dioxide 33 H (21-32) mmol/L Anion Gap 3.0 (3-11) BUN 32 H (7-18) mg/dl Creatinine 1.71 H D (0.6-1.2) mg/dl Est Cr Clr Drug Dosing 25.5 ml/min Est GFR ( Amer) 30.2 ml/min Est GFR (Non-Af Amer) 26.1 ml/min BUN/Creatinine Ratio 18.7 (10-20) Glucose 96 (70-99) mg/dl Calcium 8.9 (8.5-10.1) mg/dl Magnesium 2.0 (1.8-2.4) mg/dl Total Bilirubin 1.0 (0.2-1) mg/dl AST 12 L (15-37) U/L ALT 11 L (12-78) U/L Alkaline Phosphatase 58 (45-117) U/L Troponin I 0.025 (0-0.045) ng/ml Total Protein 6.3 L (6.4-8.2) gm/dl Albumin 2.6 L (3.4-5.0) gm/dl Globulin 3.7 (2.5-4.0) gm/dl Albumin/Globulin Ratio 0.7 L (0.9-2) 03/29/21 Range/Units 17:31 WBC (4.8-10.8) K/uL RBC (4.2-5.4) M/uL Hgb (12.0-16.0) g/dL Hct (37-47) % MCV (80-100) fL MCH (25-34) pg MCHC (32-36) g/dL RDW Std Deviation (36.4-46.3) fL RDW Coeff of Irina (11.5-14.5) % Plt Count (130-400) K/uL MPV (7.4-10.4) fL Immature Gran % (Auto) % Neut % (Auto) % Lymph % (Auto) % Dixon % (Auto) % Eos % (Auto) % Baso % (Auto) % Neut # (Auto) (1.4-6.5) K/uL Lymph # (Auto) (1.2-3.4) K/uL Dixon # (Auto) (0.11-0.59) K/uL Eos # (Auto) (0-0.5) K/uL Baso # (Auto) (0-0.2) K/uL Immature Gran # (Auto) (0.00-0.02) K/uL Sodium (136-145) mmol/L Potassium (3.5-5.1) mmol/L Chloride (98-107) mmol/L Carbon Dioxide (21-32) mmol/L Anion Gap (3-11) BUN (7-18) mg/dl Creatinine (0.6-1.2) mg/dl Est Cr Clr Drug Dosing ml/min Est GFR ( Amer) ml/min Est GFR (Non-Af Amer) ml/min BUN/Creatinine Ratio (10-20) Glucose (70-99) mg/dl Calcium (8.5-10.1) mg/dl Magnesium (1.8-2.4) mg/dl Total Bilirubin (0.2-1) mg/dl AST (15-37) U/L ALT (12-78) U/L Alkaline Phosphatase (45-117) U/L Troponin I < 0.015 (0-0.045) ng/ml Total Protein (6.4-8.2) gm/dl Albumin (3.4-5.0) gm/dl Globulin (2.5-4.0) gm/dl Albumin/Globulin Ratio (0.9-2) Medications Administered Current Inpatient Medications Acetaminophen (Acetaminophen 325 Mg Tab) 650 mg PO Q4H PRN PRN Reason: Pain or Fever Stop: 04/28/21 09:28 Last Admin: 03/30/21 09:08 Dose: 650 mg Documented by: Aspirin (Aspirin 81 Mg Ectab) 81 mg PO QAM [facility] Stop: 04/28/21 09:28 Last Admin: 03/30/21 09:09 Dose: 81 mg Documented by: Cyanocobalamin (Cyanocobalamin 500 Mcg Tablet (Vitamin B-12)) 500 mcg PO DAILY [facility] Stop: 04/28/21 09:28 Last Admin: 03/30/21 09:10 Dose: 500 mcg Documented by: Diltiazem HCl (Diltiazem Hcl 30 Mg Tab) 30 mg PO Q6 [facility] Stop: 04/28/21 17:59 Last Admin: 03/30/21 11:54 Dose: Not Given Documented by: Enoxaparin Sodium (Enoxaparin Inj 40 Mg/0.4 Ml Syr) 40 mg SQ Q24H [facility] Stop: 04/28/21 09:28 Last Admin: 03/30/21 09:13 Dose: 40 mg Documented by: Gabapentin (Gabapentin 300 Mg Cap) 300 mg PO AMHS [facility] Stop: 04/28/21 09:28 Last Admin: 03/30/21 09:10 Dose: 300 mg Documented by: Ceftriaxone Sodium 2,000 mg/ (Dextrose) 70 mls @ 100 mls/hr IV Q24H [facility]; Protocol Stop: 04/05/21 06:59 Last Infusion: 03/30/21 07:43 Dose: Infused Documented by: Losartan Potassium (Losartan Potassium 50 Mg Tab) [facility] [place]: 04/28/21 09:28 Last Admin: 03/30/21 09:11 Dose: 50 mg Documented by: Metoprolol Succinate (Metoprolol Succ 25mg Ext Rel Tab) [facility] [place]: 04/28/21 09:28 Last Admin: 03/30/21 10:59 Dose: Not Given Documented by: Metoprolol Tartrate (Metoprolol Tartrate 1 Mg/Ml Vial) 5 mg IV Q4 PRN PRN Reason: Tachycardia Stop: 04/28/21 08:59 Nitroglycerin (Nitroglycerin Sl 0.4 Mg/Tab Tab) 0.4 mg SL UD PRN PRN Reason: Chest Pain Stop: 04/28/21 09:28 Nystatin (Nystatin Powder 15gm Btl) 1 appln EXT BID PRN PRN Reason: Affected Skin Folds Stop: 04/28/21 09:31 Ondansetron HCl (Ondansetron Inj 2 Mg/Ml 2 Ml Vial) 4 mg IV Q6H PRN PRN Reason: Nausea Stop: 04/28/21 09:28 Timolol Maleate (Timolol Gfs 0.5% Oph Soln 74 Drops/5 Ml Btl) 1 drops OPB QAM [facility] Stop: 04/28/21 09:28 Last Admin: 03/30/21 09:12 Dose: 1 drops Documented by: Timolol Maleate (Timolol Gfs 0.5% Oph Soln 74 Drops/5 Ml Btl) 1 drops OPL HS [facility] Stop: 04/28/21 20:59 Last Admin: 03/29/21 20:02 Dose: 1 drops Documented by: Vitamin D (Cholecalciferol 1,000 Units 25 Mcg Tab) 2,000 units PO DAILY [facility] Stop: 04/28/21 09:59 Last Admin: 03/30/21 09:10 Dose: 2,000 units Documented by: Resident Activity Tracking Resident Involvement: Resident Care Provided Care Provided: Adult Hospital Medicine
[2021-03-30] MEDS: METOPROLOL SUCC 25MG EXT REL TAB PO SCH ×2 (10:59→21:04)
--- NOTE | 2021-03-30 17:12 | Billing Data ---
Date of Service March 30, 2021 Coding Level of Care Code 69057 Subseq Hosp Care Lvl 3
[2021-03-30] MEDS ORDERED: METOPROLOL SUCC 25MG EXT REL TAB PO SCH (21:00)
[2021-03-30] MEDS: TIMOLOL GFS 0.5% OPH SOLN 74 DROPS/5 ML BTL OPL SCH (21:02)
[2021-03-31] MEDS: ACETAMINOPHEN 325 MG TAB PO PRN (01:58)
--- NOTE | 2021-03-31 05:11 | Electrocardiogram Report ---
Test Reason : Blood Pressure : / mmHG Vent. Rate : 070 BPM Atrial Rate : 070 BPM P-R Int : 126 ms QRS Dur : 080 ms QT Int : 384 ms P-R-T Axes : -08 -18 139 degrees QTc Int : 414 ms Normal sinus rhythm Moderate voltage criteria for LVH, may be normal variant T wave abnormality, consider lateral ischemia Abnormal ECG When compared with ECG of 29-MAR-2021 03:51, Vent. rate has decreased BY 57 BPM Atrial tachycardia is no longer present Confirmed by Dio Lucio ([id number]) on 03/31/2021 5:10:53 AM Referred By: REFERRED SELF Confirmed By:Dio Lucio
--- NOTE | 2021-03-31 05:27 | Electrocardiogram Report ---
Test Reason : Blood Pressure : / mmHG Vent. Rate : 055 BPM Atrial Rate : 055 BPM P-R Int : 136 ms QRS Dur : 080 ms QT Int : 452 ms P-R-T Axes : 030 -11 056 degrees QTc Int : 432 ms Sinus bradycardia Otherwise normal ECG When compared with ECG of 29-MAR-2021 18:24, T wave inversion no longer evident in Lateral leads Confirmed by Dio Lucio ([id number]) on 03/31/2021 5:27:31 AM Referred By: REFERRED SELF Confirmed By:Dio Lucio
[2021-03-31 07:09] LABS: Basophils # (auto) 0.01 K/uL (0-0.2); Basophils % (auto) 0.2 %; Eosinophils # (auto) 0.17 K/uL (0-0.5); Eosinophils % (auto) 3.2 %; Hemoglobin 13.6 g/dL (12.0-16.0); Immature Granulocytes # (auto) 0.01 K/uL (0.00-0.02); Immature Granulocytes % (auto) 0.2 %; Lymphocytes # (auto) 0.96 K/uL (1.2-3.4); Lymphocytes % (auto) 17.9 %; Mean Corpuscular Hemoglobin 31.3 pg (25-34); Mean Platelet Volume 11.9 fL (7.4-10.4); Monocytes # (auto) 0.23 K/uL (0.11-0.59); Monocytes % (auto) 4.3 %; Neutrophils # (auto) 3.97 K/uL (1.4-6.5); Neutrophils % (auto) 74.2 %; Platelet Count 134 K/uL (130-400); RDW Coefficient of Variation 13.7 % (11.5-14.5); RDW Standard Deviation 46.4 fL (36.4-46.3); Red Blood Count 4.35 M/uL (4.2-5.4); White Blood Count 5.35 K/uL (4.8-10.8)
[2021-03-31 07:41] LABS: Albumin Level 2.6 gm/dl (3.4-5.0); BUN Creatinine Ratio 23.5 (10-20); Calcium 8.8 mg/dl (8.5-10.1); Creatinine Clr Calc Pharmacy 25.5 ml/min; Est GFR (African American) 30.2 ml/min; Est GFR (Non-African American) 26.1 ml/min; Magnesium 2.2 mg/dl (1.8-2.4); Potassium 4.1 mmol/L (3.5-5.1)
[2021-03-31 07:54] LABS: Albumin Globulin Ratio 0.7 (0.9-2); Bilirubin,Total 0.5 mg/dl (0.2-1); Globulin 3.8 gm/dl (2.5-4.0); Total Protein 6.4 gm/dl (6.4-8.2)
[2021-03-31] MEDS: GABAPENTIN 300 MG CAP PO SCH ×2 (09:29→20:01)
[2021-03-31] MEDS: CHOLECALCIFEROL 1,000 UNITS 25 MCG TAB PO SCH (09:31)
[2021-03-31] MEDS: ASPIRIN 81 MG ECTAB PO SCH (09:31)
[2021-03-31] MEDS: CYANOCOBALAMIN 500 MCG TABLET (VITAMIN B-12) PO SCH (09:32)
[2021-03-31] MEDS: LOSARTAN POTASSIUM 50 MG TAB PO SCH (09:32)
[2021-03-31] MEDS: ENOXAPARIN INJ 40 MG/0.4 ML SYR SQ SCH (09:32)
[2021-03-31] MEDS: TIMOLOL GFS 0.5% OPH SOLN 74 DROPS/5 ML BTL OPB SCH (09:33)
[2021-03-31] MEDS: METOPROLOL SUCC 25MG EXT REL TAB PO SCH (09:35)
[2021-03-31] MEDS ORDERED: POLYETHYLENE (MIRALAX) 17 GM PACK PO PRN (09:45)
[2021-03-31] MEDS: cefTRIAXone SODIUM 2,000 MG in DEXTROSE 5% 50 ML IV SCH (10:05)
--- NOTE | 2021-03-31 13:04 | Hospitalist Progress Note ---
Date of Service March 31, 2021 Assessment & Plan (1) CHF (congestive heart failure): Plan: 89yo Female PMH recurrent UTI, obesity, asthma, HTN, valve regurge here for nausea, dizziness, lightheadedness 1hr post nitrofuritoin usage. () CHF -possibly acutely exacerbated by nitrofuritoin one dose, which is on beer's criteria -patient with history cardiac murmur, ED placed on 2L NC, tachycardic -given 20mg Lasix IV and 2 dose lopressor, HR unchanged -CXR Mild cardiomegaly, small left pleural effusion. Possible pulmonary edema. Reticular opacities at the right and left lower lung could represent atelectasis or developing infiltrate -PE demonstrates bibasalar lung crackles -given another dose 20mg lasix IV, lung crackles resolved -echo = EF 60-65%, mild concentric LVH, mild dilated RV, severe b/l atrial dilation, mod. 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, states she feels weaker than baseline -PT/OT ordered, recommend rehab via SNF () Recurrent UTI -multiple UTI in past year symptomatic with urinary freq and rare AMS -occasional Ucx demonstrate abx resistance -last Ucx 03/23 showed coag neg staph not saprophyticus, pansensitive -was on Augmentin, switched to nitrofuritoin which precipitated ED visit -in ED recieved vanc and ceftriaxone, vanc d/c'd ()Obesity -rash noted under groin skin folds likely fungal, nystatin powder ordered FENa: heart healthy Code Status: full DVT PPX: lovenox PT/OT: ordered, recommend inpt rehab Case Management: [] Dispo: rehab at SNF Carleen Hart Do PGY 1, FCM (2) Recurrent UTI: (3) Generalized weakness: (4) Physical deconditioning: Admission and Anticipated Discharge Date Admission Date: March 29, 2021 Supervising Physician Co-Signing Physician Notes I personally examined the patient and verified all bynum points of history and exam, discussed case, and agree with decision making with Dr Hart. feeling ok just weak. now waiting on placement Vitals noted, in general she is awake and alert pleasant no distress. Cardio regular rate. Breathing unlabored no accessory muscle use good effort. Skin shows no rashes no pallor or icterus. Neuro without focal deficits. Acute HFpEFprobably mediated by tachycardia. Unclear if Macrobid reaction/possible allergy plays a role in causing the tachycardia or if it is just a de abisai arrhythmia. now on the dry side euvolemic. continue to follow Urinary tract infectionfinish abx Weakness/deconditioningPT OT eval and treat, unfortunately appears she will need rehab. Case management working on options Otherwise as above, DVT prophylaxis with Lovenox. Subjective 89yo Female PMH recurrent UTI, obesity, asthma, HTN, valve regurge here for nausea, dizziness, lightheadedness 1hr post nitrofuritoin usage. Patient seen at bedside comfortable, though not drinking much. Patient understands she is deconditioned and needs PT to regain her mobility. 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 Review of Systems Review of Systems: Negative fever chills Negative headache dizziness Negative chest pain SOB palpitations Negative nausea vomitting diarrhea constipation Negative numbness tingling swelling Physical Exam Physical Exam: General: Well appearing, age appropriate Heart: regular tachycardic, +S1 S2, no murmurs/gallops/rubs Lungs: cta b/l, slight exhalatory wheeze Abd: soft, NT/ND, +BS Extremities: +1 pitting edema on right leg up to knee with pain on palpation, right knee surgery scar noted Results & Data Results & Data ([facility]) Vital Signs (Past 12 Hours) Vital Signs Temp Pulse Pulse Resp BP BP Pulse Ox 03/31/21 07:46 36.8 C 56 L 20 128/69 92 03/31/21 02:10 36.7 C 60 18 153/82 H 94 Laboratory Results 03/31/21 03/31/21 Range/Units 06:44 06:44 WBC 5.35 (4.8-10.8) K/uL RBC 4.35 (4.2-5.4) M/uL Hgb 13.6 (12.0-16.0) g/dL Hct 40.0 (37-47) % MCV 92.0 (80-100) fL MCH 31.3 (25-34) pg MCHC 34.0 (32-36) g/dL RDW Std Deviation 46.4 H (36.4-46.3) fL RDW Coeff of Irina 13.7 (11.5-14.5) % Plt Count 134 (130-400) K/uL MPV 11.9 H (7.4-10.4) fL Immature Gran % (Auto) 0.2 % Neut % (Auto) 74.2 % Lymph % (Auto) 17.9 % [place] % (Auto) 4.3 % Eos % (Auto) 3.2 % Baso % (Auto) 0.2 % Neut # (Auto) 3.97 (1.4-6.5) K/uL Lymph # (Auto) 0.96 L (1.2-3.4) K/uL [place] # (Auto) 0.23 (0.11-0.59) K/uL Eos # (Auto) 0.17 (0-0.5) K/uL Baso # (Auto) 0.01 (0-0.2) K/uL Immature Gran # (Auto) 0.01 (0.00-0.02) K/uL Sodium 140 (136-145) mmol/L Potassium 4.1 (3.5-5.1) mmol/L Chloride 104 (98-107) mmol/L Carbon Dioxide 32 (21-32) mmol/L Anion Gap 4.0 (3-11) BUN 40 H (7-18) mg/dl Creatinine 1.71 H (0.6-1.2) mg/dl Est Cr Clr Drug Dosing 25.5 ml/min Est GFR ( Amer) 30.2 ml/min Est GFR (Non-Af Amer) 26.1 ml/min BUN/Creatinine Ratio 23.5 H (10-20) Glucose 90 (70-99) mg/dl Calcium 8.8 (8.5-10.1) mg/dl Magnesium 2.2 (1.8-2.4) mg/dl Total Bilirubin 0.5 D (0.2-1) mg/dl AST 12 L (15-37) U/L ALT 11 L (12-78) U/L Alkaline Phosphatase 59 (45-117) U/L Total Protein 6.4 (6.4-8.2) gm/dl Albumin 2.6 L (3.4-5.0) gm/dl Globulin 3.8 (2.5-4.0) gm/dl Albumin/Globulin Ratio 0.7 L (0.9-2) Medications Administered Current Inpatient Medications Acetaminophen (Acetaminophen 325 Mg Tab) 650 mg PO Q4H PRN PRN Reason: Pain or Fever Stop: 04/28/21 09:28 Last Admin: 03/31/21 01:58 Dose: 650 mg Documented by: Aspirin (Aspirin 81 Mg Ectab) 81 mg PO [facility] Stop: 04/28/21 09:28 Last Admin: 03/31/21 09:31 Dose: 81 mg Documented by: Cyanocobalamin (Cyanocobalamin 500 Mcg Tablet (Vitamin B-12)) 500 mcg PO DAILY [facility] Stop: 04/28/21 09:28 Last Admin: 03/31/21 09:32 Dose: 500 mcg Documented by: Docusate Sodium (Docusate Sodium 100 Mg Cap) 100 mg PO BID [facility] Stop: 04/30/21 20:59 Enoxaparin Sodium (Enoxaparin Inj 40 Mg/0.4 Ml Syr) 40 mg SQ Q24H [facility] Stop: 04/28/21 09:28 Last Admin: 03/31/21 09:32 Dose: 40 mg Documented by: Gabapentin (Gabapentin 300 Mg Cap) 300 mg PO AMHS [facility] Stop: 04/28/21 09:28 Last Admin: 03/31/21 09:29 Dose: 300 mg Documented by: Ceftriaxone Sodium 2,000 mg/ (Dextrose) 70 mls @ 100 mls/hr IV Q24H [facility]; Protocol Stop: 04/05/21 06:59 Last Infusion: 03/31/21 10:50 Dose: Infused Documented by: Losartan Potassium (Losartan Potassium 50 Mg Tab) [facility] [place] Stop: 04/28/21 09:28 Last Admin: 03/31/21 09:32 Dose: 50 mg Documented by: Metoprolol Succinate (Metoprolol Succ 25mg Ext Rel Tab) 25 mg PO [facility] Stop: 05/01/21 08:59 Nitroglycerin (Nitroglycerin Sl 0.4 Mg/Tab Tab) 0.4 mg SL UD PRN PRN Reason: Chest Pain Stop: 04/28/21 09:28 Nystatin (Nystatin Powder 15gm Btl) 1 appln EXT BID PRN PRN Reason: Affected Skin Folds Stop: 04/28/21 09:31 Ondansetron HCl (Ondansetron Inj 2 Mg/Ml 2 Ml Vial) 4 mg IV Q6H PRN PRN Reason: Nausea Stop: 04/28/21 09:28 Polyethylene Glycol (Polyethylene (Miralax) 17 Gm Pack) 17 gm PO DAILY PRN PRN Reason: Constipation Stop: 04/30/21 09:44 Timolol Maleate (Timolol Gfs 0.5% Oph Soln 74 Drops/5 Ml Btl) 1 drops OPB QAM [facility] Stop: 04/28/21 09:28 Last Admin: 03/31/21 09:33 Dose: 1 drops Documented by: Timolol Maleate (Timolol Gfs 0.5% Oph Soln 74 Drops/5 Ml Btl) 1 drops OPL HS [facility] Stop: 04/28/21 20:59 Last Admin: 03/30/21 21:02 Dose: 1 drops Documented by: Vitamin D (Cholecalciferol 1,000 Units 25 Mcg Tab) 2,000 units PO DAILY [facility] Stop: 04/28/21 09:59 Last Admin: 03/31/21 09:31 Dose: 2,000 units Documented by: Resident Activity Tracking Resident Involvement: Resident Care Provided Care Provided: Adult Hospital Medicine
--- NOTE | 2021-03-31 19:26 | Billing Data ---
Date of Service March 31, 2021 Coding Level of Care Code 75152 Subseq Hosp Care Lvl 2
[2021-03-31] MEDS: TIMOLOL GFS 0.5% OPH SOLN 74 DROPS/5 ML BTL OPL SCH (20:01)
[2021-03-31] MEDS: DOCUSATE SODIUM 100 MG CAP PO SCH (20:01)
[2021-04-01] MEDS: cefTRIAXone SODIUM 2,000 MG in DEXTROSE 5% 50 ML IV SCH (06:42)
[2021-04-01 07:59] LABS: Basophils # (auto) 0.01 K/uL (0-0.2); Basophils % (auto) 0.2 %; Eosinophils # (auto) 0.13 K/uL (0-0.5); Hematocrit (blood only) 39.7 % (37-47); Hemoglobin 13.3 g/dL (12.0-16.0); Immature Granulocytes # (auto) 0.01 K/uL (0.00-0.02); Immature Granulocytes % (auto) 0.2 %; Lymphocytes # (auto) 1.21 K/uL (1.2-3.4); Lymphocytes % (auto) 27.7 %; Mean Corpuscular Hemoglobin 30.6 pg (25-34); Mean Corpuscular Hgb Conc 33.5 g/dL (32-36); Mean Corpuscular Volume 91.3 fL (80-100); Mean Platelet Volume 11.7 fL (7.4-10.4); Monocytes % (auto) 6.9 %; Neutrophils # (auto) 2.71 K/uL (1.4-6.5); Platelet Count 142 K/uL (130-400); RDW Coefficient of Variation 13.7 % (11.5-14.5); RDW Standard Deviation 45.8 fL (36.4-46.3); Red Blood Count 4.35 M/uL (4.2-5.4); White Blood Count 4.37 K/uL (4.8-10.8)
[2021-04-01] MEDS: METOPROLOL SUCC 25MG EXT REL TAB PO SCH (08:08)
[2021-04-01] MEDS: ASPIRIN 81 MG ECTAB PO SCH (08:08)
[2021-04-01] MEDS: CHOLECALCIFEROL 1,000 UNITS 25 MCG TAB PO SCH (08:08)
[2021-04-01] MEDS: CYANOCOBALAMIN 500 MCG TABLET (VITAMIN B-12) PO SCH (08:08)
[2021-04-01] MEDS: ENOXAPARIN INJ 40 MG/0.4 ML SYR SQ SCH (08:09)
[2021-04-01] MEDS: DOCUSATE SODIUM 100 MG CAP PO SCH ×2 (08:09→20:06)
[2021-04-01] MEDS: GABAPENTIN 300 MG CAP PO SCH ×2 (08:09→20:06)
[2021-04-01] MEDS: TIMOLOL GFS 0.5% OPH SOLN 74 DROPS/5 ML BTL OPB SCH (08:09)
[2021-04-01] MEDS: LOSARTAN POTASSIUM 50 MG TAB PO SCH (08:09)
[2021-04-01 08:27] LABS: Albumin Level 2.4 gm/dl (3.4-5.0); BUN Creatinine Ratio 28.1 (10-20); Calcium 8.6 mg/dl (8.5-10.1); Creatinine Clr Calc Pharmacy 37.9 ml/min; Est GFR (African American) 48.9 ml/min; Est GFR (Non-African American) 42.2 ml/min; Potassium 3.8 mmol/L (3.5-5.1)
[2021-04-01 08:29] LABS: Albumin Globulin Ratio 0.6 (0.9-2); Bilirubin,Total 0.4 mg/dl (0.2-1); Globulin 3.9 gm/dl (2.5-4.0); Total Protein 6.3 gm/dl (6.4-8.2)
--- NOTE | 2021-04-01 13:53 | Hospitalist Progress Note ---
Date of Service April 01, 2021 Assessment & Plan (1) CHF (congestive heart failure): Plan: 89yo Female PMH recurrent UTI, obesity, asthma, HTN, valve regurge here for nausea, dizziness, lightheadedness 1hr post nitrofuritoin usage. () CHF -possibly acutely exacerbated by nitrofuritoin one dose, which is on beer's criteria -patient with history cardiac murmur, ED placed on 2L NC, tachycardic -given 20mg Lasix IV and 2 dose lopressor, HR unchanged -CXR Mild cardiomegaly, small left pleural effusion. Possible pulmonary edema. Reticular opacities at the right and left lower lung could represent atelectasis or developing infiltrate -PE demonstrates bibasalar lung crackles -given another dose 20mg lasix IV, lung crackles resolved -echo = EF 60-65%, mild concentric LVH, mild dilated RV, severe b/l atrial dilation, mod. 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, states she feels weaker than baseline -PT/OT ordered, recommend rehab via SNF () Recurrent UTI -multiple UTI in past year symptomatic with urinary freq and rare AMS -occasional Ucx demonstrate abx resistance -last Ucx 03/23 showed coag neg staph not saprophyticus, pansensitive -was on Augmentin, switched to nitrofuritoin which precipitated ED visit -in ED recieved vanc and ceftriaxone, vanc d/c'd ()Obesity -rash noted under groin skin folds likely fungal, nystatin powder ordered FENa: heart healthy Code Status: full DVT PPX: lovenox PT/OT: ordered, recommend inpt rehab Case Management: [] Dispo: rehab at [facility] Carleen Hart Do PGY 1, FCM (2) Recurrent UTI: (3) Generalized weakness: (4) Physical deconditioning: Admission and Anticipated Discharge Date Admission Date: March 29, 2021 Supervising Physician Co-Signing Physician Notes I personally examined the patient and verified all bynum points of history and exam, discussed case, and agree with decision making with Dr Hart. still waiting on placement Vitals noted, resting no distress. Cardio regular rate. Breathing unlabored no accessory muscle use good effort. Skin shows no rashes no pallor or icterus. Neuro without focal deficits at rest. Acute HFpEFprobably mediated by tachycardia. Unclear if Macrobid reaction/possible allergy plays a role in causing the tachycardia or if it is just a de abisai arrhythmia. now euvolemic. continue to follow Urinary tract infectionfinish abx Weakness/deconditioningPT OT eval and treat, unfortunately appears she will need rehab. Case management working on options - stable to go once able to Otherwise as above, DVT prophylaxis with Lovenox. Subjective 89yo Female PMH recurrent UTI, obesity, asthma, HTN, valve regurge here for nausea, dizziness, lightheadedness 1hr post nitrofuritoin usage. Patient seen at bedside comfortable, ate lunch. States she had a cough last night. Otherwise no other complaints. Patient understands she is currently awaiting placement for rehab, and rehab is necessary for her to regain strength to go home. Review of Systems Review of Systems: positive cough Negative fever chills Negative headache dizziness Negative chest pain SOB palpitations Negative nausea vomitting diarrhea constipation Negative numbness tingling swelling Physical Exam Physical Exam: General: Well appearing, age appropriate Heart: regular tachycardic, +S1 S2, no murmurs/gallops/rubs Lungs: cta b/l, slight exhalatory wheeze Abd: soft, NT/ND, +BS Extremities: +1 pitting edema on right leg up to knee with pain on palpation, right knee surgery scar noted Results & Data Results & Data ([facility]) Vital Signs (Past 12 Hours) Vital Signs Temp Pulse Resp BP Pulse Ox 04/01/21 08:01 36.8 C 62 18 153/58 H 92 04/01/21 07:00 36.8 C 60 20 167/61 H 93 Laboratory Results 04/01/21 04/01/21 Range/Units 07:20 07:20 WBC 4.37 L (4.8-10.8) K/uL RBC 4.35 (4.2-5.4) M/uL Hgb 13.3 (12.0-16.0) g/dL Hct 39.7 (37-47) % MCV 91.3 (80-100) fL MCH 30.6 (25-34) pg MCHC 33.5 (32-36) g/dL RDW Std Deviation 45.8 (36.4-46.3) fL RDW Coeff of Irina 13.7 (11.5-14.5) % Plt Count 142 (130-400) K/uL MPV 11.7 H (7.4-10.4) fL Immature Gran % (Auto) 0.2 % Neut % (Auto) 62.0 % Lymph % (Auto) 27.7 % [place] % (Auto) 6.9 % Eos % (Auto) 3.0 % Baso % (Auto) 0.2 % Neut # (Auto) 2.71 (1.4-6.5) K/uL Lymph # (Auto) 1.21 (1.2-3.4) K/uL [place] # (Auto) 0.30 (0.11-0.59) K/uL Eos # (Auto) 0.13 (0-0.5) K/uL Baso # (Auto) 0.01 (0-0.2) K/uL Immature Gran # (Auto) 0.01 (0.00-0.02) K/uL Sodium 139 (136-145) mmol/L Potassium 3.8 (3.5-5.1) mmol/L Chloride 106 (98-107) mmol/L Carbon Dioxide 29 (21-32) mmol/L Anion Gap 5.0 (3-11) BUN 32 H (7-18) mg/dl Creatinine 1.15 D (0.6-1.2) mg/dl Est Cr Clr Drug Dosing 37.9 ml/min Est GFR ( Amer) 48.9 ml/min Est GFR (Non-Af Amer) 42.2 ml/min BUN/Creatinine Ratio 28.1 H (10-20) Glucose 95 (70-99) mg/dl Calcium 8.6 (8.5-10.1) mg/dl Total Bilirubin 0.4 (0.2-1) mg/dl AST 15 (15-37) U/L ALT 13 (12-78) U/L Alkaline Phosphatase 57 (45-117) U/L Total Protein 6.3 L (6.4-8.2) gm/dl Albumin 2.4 L (3.4-5.0) gm/dl Globulin 3.9 (2.5-4.0) gm/dl Albumin/Globulin Ratio 0.6 L (0.9-2) Medications Administered Current Inpatient Medications Acetaminophen (Acetaminophen 325 Mg Tab) 650 mg PO Q4H PRN PRN Reason: Pain or Fever Stop: 04/28/21 09:28 Last Admin: 03/31/21 01:58 Dose: 650 mg Documented by: Aspirin (Aspirin 81 Mg Ectab) 81 mg PO QAM [facility] Stop: 04/28/21 09:28 Last Admin: 04/01/21 08:08 Dose: 81 mg Documented by: Cyanocobalamin (Cyanocobalamin 500 Mcg Tablet (Vitamin B-12)) 500 mcg PO DAILY [facility] Stop: 04/28/21 09:28 Last Admin: 04/01/21 08:08 Dose: 500 mcg Documented by: Docusate Sodium (Docusate Sodium 100 Mg Cap) 100 mg PO BID [facility] Stop: 04/30/21 20:59 Last Admin: 04/01/21 08:09 Dose: 100 mg Documented by: Enoxaparin Sodium (Enoxaparin Inj 40 Mg/0.4 Ml Syr) 40 mg SQ Q24H [facility] Stop: 04/28/21 09:28 Last Admin: 04/01/21 08:09 Dose: 40 mg Documented by: Gabapentin (Gabapentin 300 Mg Cap) 300 mg PO AMHS [facility] Stop: 04/28/21 09:28 Last Admin: 04/01/21 08:09 Dose: 300 mg Documented by: Ceftriaxone Sodium 2,000 mg/ (Dextrose) 70 mls @ 100 mls/hr IV Q24H [facility]; Protocol Stop: 04/05/21 06:59 Last Infusion: 04/01/21 08:07 Dose: Infused Documented by: Losartan Potassium (Losartan Potassium 50 Mg Tab) 50 mg PO QAM [facility] Stop: 04/28/21 09:28 Last Admin: 04/01/21 08:09 Dose: 50 mg Documented by: Metoprolol Succinate (Metoprolol Succ 25mg Ext Rel Tab) 25 mg PO QAM [facility] Stop: 05/01/21 08:59 Last Admin: 04/01/21 08:08 Dose: 25 mg Documented by: Nitroglycerin (Nitroglycerin Sl 0.4 Mg/Tab Tab) 0.4 mg SL UD PRN PRN Reason: Chest Pain Stop: 04/28/21 09:28 Nystatin (Nystatin Powder 15gm Btl) 1 appln EXT BID PRN PRN Reason: Affected Skin Folds Stop: 04/28/21 09:31 Last Admin: 04/01/21 08:10 Dose: 1 appln Documented by: Ondansetron HCl (Ondansetron Inj 2 Mg/Ml 2 Ml Vial) 4 mg IV Q6H PRN PRN Reason: Nausea Stop: 04/28/21 09:28 Polyethylene Glycol (Polyethylene (Miralax) 17 Gm Pack) 17 gm PO DAILY PRN PRN Reason: Constipation Stop: 04/30/21 09:44 Timolol Maleate (Timolol Gfs 0.5% Oph Soln 74 Drops/5 Ml Btl) 1 drops OPB QAM [facility] Stop: 04/28/21 09:28 Last Admin: 04/01/21 08:09 Dose: 1 drops Documented by: Timolol Maleate (Timolol Gfs 0.5% Oph Soln 74 Drops/5 Ml Btl) 1 drops OPL HS [facility] Stop: 04/28/21 20:59 Last Admin: 03/31/21 20:01 Dose: 1 drops Documented by: Vitamin D (Cholecalciferol 1,000 Units 25 Mcg Tab) 2,000 units PO DAILY [facility] Stop: 04/28/21 09:59 Last Admin: 04/01/21 08:08 Dose: 2,000 units Documented by: Resident Activity Tracking Resident Involvement: Resident Care Provided Care Provided: Adult Hospital Medicine
--- NOTE | 2021-04-01 16:55 | Electrocardiogram Report ---
Test Reason : Blood Pressure : / mmHG Vent. Rate : 057 BPM Atrial Rate : 057 BPM P-R Int : 150 ms QRS Dur : 080 ms QT Int : 444 ms P-R-T Axes : -24 -15 050 degrees QTc Int : 432 ms Sinus bradycardia Otherwise normal ECG When compared with ECG of 30-MAR-2021 05:40, No significant change was found Confirmed by Dio Lucio [id number]) on 04/01/2021 4:54:49 PM Referred By: REFERRED SELF Confirmed By:Dio Lucio
--- NOTE | 2021-04-01 19:24 | Billing Data ---
Date of Service April 01, 2021 Coding Level of Care Code 42804 Subseq Hosp Care Lvl 1
[2021-04-01] MEDS: TIMOLOL GFS 0.5% OPH SOLN 74 DROPS/5 ML BTL OPL SCH (20:06)
[2021-04-02] MEDS: cefTRIAXone SODIUM 2,000 MG in DEXTROSE 5% 50 ML IV SCH (06:18)
[2021-04-02] MEDS: CHOLECALCIFEROL 1,000 UNITS 25 MCG TAB PO SCH (08:45)
[2021-04-02] MEDS: METOPROLOL SUCC 25MG EXT REL TAB PO SCH (08:46)
[2021-04-02] MEDS: LOSARTAN POTASSIUM 50 MG TAB PO SCH (08:46)
[2021-04-02] MEDS: GABAPENTIN 300 MG CAP PO SCH ×2 (08:46→20:44)
[2021-04-02] MEDS: ASPIRIN 81 MG ECTAB PO SCH (08:47)
[2021-04-02] MEDS: TIMOLOL GFS 0.5% OPH SOLN 74 DROPS/5 ML BTL OPB SCH (08:48)
[2021-04-02] MEDS: DOCUSATE SODIUM 100 MG CAP PO SCH ×2 (08:50→20:45)
[2021-04-02] MEDS: CYANOCOBALAMIN 500 MCG TABLET (VITAMIN B-12) PO SCH (08:51)
[2021-04-02] MEDS: ENOXAPARIN INJ 40 MG/0.4 ML SYR SQ SCH (08:51)
[2021-04-02 10:58] LABS: Hematocrit (blood only) 39.9 % (37-47); Hemoglobin 13.5 g/dL (12.0-16.0); Mean Corpuscular Hemoglobin 30.8 pg (25-34); Mean Corpuscular Hgb Conc 33.8 g/dL (32-36); Mean Corpuscular Volume 90.9 fL (80-100); Mean Platelet Volume 11.7 fL (7.4-10.4); Platelet Count 161 K/uL (130-400); RDW Coefficient of Variation 13.6 % (11.5-14.5); Red Blood Count 4.39 M/uL (4.2-5.4); White Blood Count 4.79 K/uL (4.8-10.8)
[2021-04-02 11:23] LABS: BUN Creatinine Ratio 25.2 (10-20); Creatinine Clr Calc Pharmacy 37.3 ml/min; Est GFR (African American) 47.8 ml/min; Est GFR (Non-African American) 41.3 ml/min; Potassium 3.9 mmol/L (3.5-5.1)
--- NOTE | 2021-04-02 19:39 | Hospitalist Progress Note ---
Date of Service April 02, 2021 Assessment & Plan (1) CHF (congestive heart failure): Plan: 89yo Female PMH recurrent UTI, obesity, asthma, HTN, valve regurge here for nausea, dizziness, lightheadedness 1hr post nitrofuritoin usage. () CHF -possibly acutely exacerbated by nitrofuritoin one dose, which is on beer's criteria -echo = EF 60-65%, mild concentric LVH, mild dilated RV, severe b/l atrial dilation, mod. 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 We will continue ceftriaxone at least through tomorrow, and then probably can DC ()Obesity -rash noted under groin skin folds likely fungal, nystatin powder ordered FENa: heart healthy Code Status: full DVT PPX: lovenox PT/OT: ordered, recommend inpt rehab Case Management: [] Dispo: rehab at SNF Acute HFpEFprobably mediated by tachycardia. Unclear if Macrobid reaction/possible allergy plays a role in causing the tachycardia or if it is just a de abisai arrhythmia. now euvolemic. continue to follow Urinary tract infectionfinish abx Weakness/deconditioningPT OT eval and treat, unfortunately appears she will need rehab. Case management working on options - stable to go once able to Otherwise as above, DVT prophylaxis with Lovenox. (2) Recurrent UTI: (3) Generalized weakness: (4) Physical deconditioning: Admission and Anticipated Discharge Date Admission Date: March 29, 2021 Subjective Feeling okay, no new complaints. Still waiting on placement. Review of Systems Review of Systems: All systems reviewed & are unremarkable except as noted in HPI & below Physical Exam Physical Exam: In general she is awake and alert pleasant no distress, fatigued appearing. HEENT normocephalic atraumatic mucous membranes moist. Breathing unlabored no accessory muscle use good effort. Skin shows no rashes no pallor or icterus. Neuro without focal deficits. Results & Data Results & Data ([facility]) Vital Signs (Past 12 Hours) Vital Signs Temp Pulse Resp BP Pulse Ox 04/02/21 16:00 97.9 F 60 20 140/76 92 PG Care Time/CCT Total # of Minutes Spent Total Time Spent with Patient: Total time spent is greater than 50% in coordination of care (as documented) at patient's floor/unit and/or counseling patient: Coding Level of Care Code 92252 Subseq Hosp Care Lvl 1 Diagnoses CHF (congestive heart failure) I50.9 Recurrent UTI N39.0 Generalized weakness R53.1 Physical deconditioning R53.81
[2021-04-02] MEDS: TIMOLOL GFS 0.5% OPH SOLN 74 DROPS/5 ML BTL OPL SCH (20:43)
[2021-04-03] MEDS: cefTRIAXone SODIUM 2,000 MG in DEXTROSE 5% 50 ML IV SCH (06:43)
[2021-04-03] MEDS: CHOLECALCIFEROL 1,000 UNITS 25 MCG TAB PO SCH (09:47)
[2021-04-03] MEDS: METOPROLOL SUCC 25MG EXT REL TAB PO SCH (09:47)
[2021-04-03] MEDS: ASPIRIN 81 MG ECTAB PO SCH (09:47)
[2021-04-03] MEDS: GABAPENTIN 300 MG CAP PO SCH ×2 (09:47→21:45)
[2021-04-03] MEDS: DOCUSATE SODIUM 100 MG CAP PO SCH ×2 (09:49→21:45)
[2021-04-03] MEDS: LOSARTAN POTASSIUM 50 MG TAB PO SCH (10:25)
[2021-04-03] MEDS: CYANOCOBALAMIN 500 MCG TABLET (VITAMIN B-12) PO SCH (10:25)
[2021-04-03] MEDS: ENOXAPARIN INJ 40 MG/0.4 ML SYR SQ SCH (10:26)
[2021-04-03] MEDS: TIMOLOL GFS 0.5% OPH SOLN 74 DROPS/5 ML BTL OPB SCH (12:52)
--- NOTE | 2021-04-03 17:19 | Hospitalist Progress Note ---
Date of Service April 03, 2021 Assessment & Plan (1) CHF (congestive heart failure): Plan: 89yo Female PMH recurrent UTI, obesity, asthma, HTN, valve regurge here for nausea, dizziness, lightheadedness 1hr post nitrofuritoin usage. () CHF -possibly acutely exacerbated by nitrofuritoin one dose, which is on beer's criteria -echo = EF 60-65%, mild concentric LVH, mild dilated RV, severe b/l atrial dilation, mod. 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 Can DC ceftriaxone although. ()Obesity -rash noted under groin skin folds likely fungal, nystatin powder ordered FENa: heart healthy Code Status: full DVT PPX: lovenox PT/OT: ordered, recommend inpt rehab Case Management: [] Dispo: rehab at SNF Acute HFpEFprobably mediated by tachycardia. Unclear if Macrobid reaction /possible allergy plays a role in causing the tachycardia or if it is just a de abisai arrhythmia. now euvolemic. continue to follow Urinary tract infectionfinished abx Weakness/deconditioningPT OT eval and treat, unfortunately appears she will need rehab. Case management working on options - stable to go once able to Otherwise as above, DVT prophylaxis with Lovenox. (2) Recurrent UTI: (3) Generalized weakness: (4) Physical deconditioning: Admission and Anticipated Discharge Date Admission Date: March 29, 2021 Subjective Sleeping comfortably no distress. No new issues identified Physical Exam Physical Exam: Comfortable no distress. Breathing unlabored no accessory muscle use good effort no focal neuro deficits. Skin no pallor. Results & Data Results & Data ([facility]) Vital Signs (Past 12 Hours) Vital Signs Temp Pulse Pulse Resp BP BP Pulse Ox 04/03/21 16:00 97.5 F L 58 L 18 134/74 93 04/03/21 09:49 68 04/03/21 07:30 97.3 F L 55 L 18 148/80 H 94 PG Care Time/CCT Total # of Minutes Spent Total Time Spent with Patient: Total time spent is greater than 50% in coordination of care (as documented) at patient's floor/unit and/or counseling patient: Coding Level of Care Code 35184 Subseq Hosp Care Lvl 1 Diagnoses CHF (congestive heart failure) I50.9 Recurrent UTI N39.0 Generalized weakness R53.1 Physical deconditioning R53.81
--- NOTE | 2021-04-03 20:50 | Emergency Department Note ---
Impression & Plan Vomiting, Tachycardia, Acute UTI ED Provider Note CHIEF COMPLAINT: Vomiting, UTI, new medicine HISTORY OF PRESENT ILLNESS: This 89-year-old female patient presents to the emergency department by ambulance with complaints of vomiting, weakness, shortness of breath shortly after taking Macrobid. The patient was taking amoxicillin for UTI but was switched. She is noted to be tachycardic and had low oxygen saturations by EMS. Patient denies any fevers, chest pain, abdominal pain and diarrhea. REVIEW OF SYSTEMS: A review of systems was performed with positives and pertinent negatives listed in the history of present illness. 10 systems were reviewed and are otherwise negative. ALLERGIES: See Below MEDICATIONS: See Below PMH: See below SOCIAL HISTORY: See below PHYSICAL EXAM: Vital signs reviewed. General: Elderly, obese, 89-year-old female in no significant distress. HEENT: No scleral icterus, PERRLA, neck supple. Atraumatic. Cardiovascular: Tachycardic but regular, no extra sounds Pulmonary: Coarse breath sounds to the bases bilaterally, normal work of breathing on oxygen supplementation Abdomen: Soft, obese, nontender, nondistended, positive bowel sounds. Musculoskeletal: Atraumatic, no peripheral edema. Neurologic: Patient awake alert and answers most questions appropriately, speech is clear. Follows commands Skin: Warm, dry, no rash EMERGENCY DEPARTMENT COURSE: This patient was evaluated and appeared to be in no significant distress. IV access was obtained and laboratory work was drawn. Patient was placed on a monitor worker and noted to be in atrial tachycardia. IV metoprolol 5 mg was administered x2. The patient was given IV Lasix due to tachycardia and pulmonary vascular congestion on chest x-ray. Patient's oxygen saturation remained stable with nasal cannula supplementation. She had no further vomiting. It is unclear if this episode is related to the Macrobid or not however I suspect the ? atrial tachycardia is likely responsible for the patient's hypoxia and nausea/vomiting. Patient's case was discussed with the hospitalist service for further management. MONITORING: An order for cardiac monitoring was placed and the patient is noted to be in an atrial tachycardia at 124 beats per minute. RADIOLOGY: See below EKG: See below DIAGNOSIS: Atrial tachycardia, vomiting Disposition:admission, hospitalist evaluation I have personally spent 35 minutes of critical care time in the direct management of this patient. This was a life threatening event. This 35 minutes is in excess of all separately billable procedures. Past Med/Surg History Medical History Arthritis Bronchitis Cataract Fever Glaucoma Hiatal hernia PNA (pneumonia) Recurrent UTI Weakness Surgical History H/O tubal ligation Hx of cataract surgery Hx of vaginal hysterectomy S/P knee replacement Family History Sister Breast cancer Father Colorectal cancer Mother Hypertension Denies family history of Ovarian cancer Prostate cancer Diabetes Myocardial infarction Lung cancer Stroke Social History Smoking Status: Former smoker Tobacco Type: Cigarettes Second Hand Exposure: No; Hx Alcohol Use: No Hx Substance Use: No Preferred Language: Faroese Communication Ability: Effective 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 Beliefs That Will Affect Care: None marital status: / Current Living Situation: Family Current Living Situation Comment: [facility] pt current occupational status: retired How many Children do You have: 1 Feels Safe at Home: Yes caffeine: No Dental Care, Regularly: No Physical Activity Frequency: Does not Exercise Seatbelt Use: always Sunscreen Use: No Assistive Devices: Denture - Upper and Denture - Lower Allergies Allergies Allergy/AdvReac Type Severity Reaction Status Date / Time Sulfa (Sulfonamide Allergy Intermediate HIVES Verified 03/29/21 02:47 Antibiotics) indomethacin AdvReac Severe SEVERE Verified 03/29/21 02:47 HEADACHE nitrofurantoin AdvReac Severe tachycardia Verified 04/03/21 18:01 [From Macrobid] (led to diastolic chf episode) Home Meds Home Medications Medication Instructions Recorded Confirmed aspirin 81 mg tablet,delayed 81 mg PO QAM tab 03/10/19 03/29/21 release krill oil 500 mg capsule 500 mg PO QAM cap 03/10/19 03/29/21 timolol maleate 0.5 % eye gel 1 drp OPB QAM 08/20/19 03/29/21 forming solution timolol maleate 0.5 % eye gel 1 drp OPL HS 08/20/19 03/29/21 forming solution gabapentin 300 mg capsule 300 mg PO AMPM 10/17/20 03/29/21 cholecalciferol (vitamin D3) 50 50 mcg PO DAILY 02/28/21 03/29/21 mcg (2,000 unit) capsule triamterene 37.5 1 cap PO QAM 02/28/21 03/29/21 mg-hydrochlorothiazide 25 mg capsule Previous Rx's Medication Instructions Recorded cyanocobalamin (vitamin B-12) 500 500 mcg PO DAILY #30 tab 11/03/20 mcg tablet losartan 100 mg tablet 50 mg PO QAM #90 tab 11/03/20 metoprolol succinate 50 mg 25 mg PO QAM #90 tab 11/03/20 tablet,extended release 24 hr nitrofurantoin macrocrystal 100 mg 100 mg PO BID #10 cap 03/28/21 capsule Results & Data (ED) Home Medications Current Medication List: was personally reviewed by me Laboratory Data Attestation: I reviewed the patient's lab results. Result diagrams: 04/02/21 10:34 04/02/21 10:34 Lab Results 03/29/21 03/29/21 03/29/21 Range/Units 02:59 02:59 02:59 WBC 9.90 (4.8-10.8) K/uL RBC 4.65 (4.2-5.4) M/uL Hgb 14.7 (12.0-16.0) g/dL Hct 42.7 (37-47) % MCV 91.8 (80-100) fL MCH 31.6 (25-34) pg MCHC 34.4 (32-36) g/dL RDW Std Deviation 46.0 (36.4-46.3) fL RDW Coeff of Irina 13.8 (11.5-14.5) % Plt Count 130 (130-400) K/uL MPV 12.4 H (7.4-10.4) fL Immature Gran % (Auto) 0.3 % Neut % (Auto) 88.5 % Lymph % (Auto) 7.6 % [place] % (Auto) 3.1 % Eos % (Auto) 0.4 % Baso % (Auto) 0.1 % Neut # (Auto) 8.76 H (1.4-6.5) K/uL Lymph # (Auto) 0.75 L (1.2-3.4) K/uL [place] # (Auto) 0.31 (0.11-0.59) K/uL Eos # (Auto) 0.04 (0-0.5) K/uL Baso # (Auto) 0.01 (0-0.2) K/uL Immature Gran # (Auto) 0.03 H (0.00-0.02) K/uL Platelet Estimate Decreased L (Normal) PT 9.9 (9.0-12.0) Seconds INR 1.0 (0.9-1.1) APTT 23.9 (21.0-31.0) Seconds PTT Ratio 0.9 Sodium 141 (136-145) mmol/L Potassium 4.1 (3.5-5.1) mmol/L Chloride 106 (98-107) mmol/L Carbon Dioxide 29 (21-32) mmol/L Anion Gap 6.0 (3-11) BUN 30 H (7-18) mg/dl Creatinine 1.18 (0.6-1.2) mg/dl Est Cr Clr Drug Dosing 36.9 ml/min Est GFR ( Amer) 47.4 ml/min Est GFR (Non-Af Amer) 40.9 ml/min BUN/Creatinine Ratio 25.7 H (10-20) Glucose 100 H (70-99) mg/dl Calcium 9.0 (8.5-10.1) mg/dl Magnesium 1.8 (1.8-2.4) mg/dl Total Bilirubin 0.7 (0.2-1) mg/dl AST 18 (15-37) U/L ALT 14 (12-78) U/L Alkaline Phosphatase 87 (45-117) U/L Troponin I < 0.015 (0-0.045) ng/ml Total Protein 7.2 (6.4-8.2) gm/dl Albumin 3.4 (3.4-5.0) gm/dl Globulin 3.8 (2.5-4.0) gm/dl Albumin/Globulin Ratio 0.9 (0.9-2) COVID-19 Eval Order SARS-CoV-2 (PCR) (Negative) 03/29/21 03/29/21 Range/Units 05:26 05:26 WBC (4.8-10.8) K/uL RBC (4.2-5.4) M/uL Hgb (12.0-16.0) g/dL Hct (37-47) % MCV (80-100) fL MCH (25-34) pg MCHC (32-36) g/dL RDW Std Deviation (36.4-46.3) fL RDW Coeff of Irina (11.5-14.5) % Plt Count (130-400) K/uL MPV (7.4-10.4) fL Immature Gran % (Auto) % Neut % (Auto) % Lymph % (Auto) % [place] % (Auto) % Eos % (Auto) % Baso % (Auto) % Neut # (Auto) (1.4-6.5) K/uL Lymph # (Auto) (1.2-3.4) K/uL [place] # (Auto) (0.11-0.59) K/uL Eos # (Auto) (0-0.5) K/uL Baso # (Auto) (0-0.2) K/uL Immature Gran # (Auto) (0.00-0.02) K/uL Platelet Estimate (Normal) PT (9.0-12.0) Seconds INR (0.9-1.1) APTT (21.0-31.0) Seconds PTT Ratio Sodium (136-145) mmol/L Potassium (3.5-5.1) mmol/L Chloride (98-107) mmol/L Carbon Dioxide (21-32) mmol/L Anion Gap (3-11) BUN (7-18) mg/dl Creatinine (0.6-1.2) mg/dl Est Cr Clr Drug Dosing ml/min Est GFR ( Amer) ml/min Est GFR (Non-Af Amer) ml/min BUN/Creatinine Ratio (10-20) Glucose (70-99) mg/dl Calcium (8.5-10.1) mg/dl Magnesium (1.8-2.4) mg/dl Total Bilirubin (0.2-1) mg/dl AST (15-37) U/L ALT (12-78) U/L Alkaline Phosphatase (45-117) U/L Troponin I (0-0.045) ng/ml Total Protein (6.4-8.2) gm/dl Albumin (3.4-5.0) gm/dl Globulin (2.5-4.0) gm/dl Albumin/Globulin Ratio (0.9-2) COVID-19 Eval Order Covid19 at [facility] SARS-CoV-2 (PCR) NEGATIVE (Negative) Administered Medications Acetaminophen (Acetaminophen 325 Mg Tab) 650 mg PO Q4H PRN PRN Reason: Pain or Fever Stop: 04/28/21 09:28 Last Admin: 03/31/21 01:58 Dose: 650 mg Documented by: [id number] Admin: 03/30/21 09:08 Dose: 650 mg Documented by: [id number] Aspirin (Aspirin 81 Mg Ectab) 81 mg PO QAM [facility] Stop: 04/28/21 09:28 Last Admin: 04/03/21 09:47 Dose: 81 mg Documented by: [id number] Admin: 04/02/21 08:47 Dose: 81 mg Documented by: [id number] Admin: 04/01/21 08:08 Dose: 81 mg Documented by: [id number] Admin: 03/31/21 09:31 Dose: 81 mg Documented by: [id number] Admin: 03/30/21 09:09 Dose: 81 mg Documented by: [id number] Admin: 03/29/21 11:04 Dose: 81 mg Documented by: [id number] Cyanocobalamin (Cyanocobalamin 500 Mcg Tablet (Vitamin B-12)) 500 mcg PO DAILY [facility] Stop: 04/28/21 09:28 Last Admin: 04/03/21 10:25 Dose: 500 mcg Documented by: [id number] Admin: 04/02/21 08:51 Dose: 500 mcg Documented by: [id number] Admin: 04/01/21 08:08 Dose: 500 mcg Documented by: [id number] Admin: 03/31/21 09:32 Dose: 500 mcg Documented by: [id number] Admin: 03/30/21 09:10 Dose: 500 mcg Documented by: [id number] Admin: 03/29/21 11:04 Dose: 500 mcg Documented by: [id number] Docusate Sodium (Docusate Sodium 100 Mg Cap) 100 mg PO BID [facility] Stop: 04/30/21 20:59 Last Admin: 04/03/21 09:49 Dose: Not Given Documented by: [id number] Admin: 04/02/21 20:45 Dose: 100 mg Documented by: [id number] Admin: 04/02/21 08:50 Dose: Not Given Documented by: [id number] Admin: 04/01/21 20:06 Dose: 100 mg Documented by: [id number] Admin: 04/01/21 08:09 Dose: 100 mg Documented by: [id number] Admin: 03/31/21 20:01 Dose: 100 mg Documented by: [id number] Enoxaparin Sodium (Enoxaparin Inj 40 Mg/0.4 Ml Syr) 40 mg SQ Q24H [facility] Stop: 04/28/21 09:28 Last Admin: 04/03/21 10:26 Dose: 40 mg Documented by: [id number] Admin: 04/02/21 08:51 Dose: 40 mg Documented by: [id number] Admin: 04/01/21 08:09 Dose: 40 mg Documented by: [id number] Admin: 03/31/21 09:32 Dose: 40 mg Documented by: [id number] Admin: 03/30/21 09:13 Dose: 40 mg Documented by: [id number] Admin: 03/29/21 11:05 Dose: 40 mg Documented by: [id number] Gabapentin (Gabapentin 300 Mg Cap) 300 mg PO AMHS [facility] Stop: 04/28/21 09:28 Last Admin: 04/03/21 09:47 Dose: 300 mg Documented by: [id number] Admin: 04/02/21 20:44 Dose: 300 mg Documented by: [id number] Admin: 04/02/21 08:46 Dose: 300 mg Documented by: [id number] Admin: 04/01/21 20:06 Dose: 300 mg Documented by: [id number] Admin: 04/01/21 08:09 Dose: 300 mg Documented by: [id number] Admin: 03/31/21 20:01 Dose: 300 mg Documented by: [id number] Admin: 03/31/21 09:29 Dose: 300 mg Documented by: [id number] Admin: 03/30/21 21:01 Dose: 300 mg Documented by: [id number] Admin: 03/30/21 09:10 Dose: 300 mg Documented by: [id number] Admin: 03/29/21 20:02 Dose: 300 mg Documented by: [id number] Admin: 03/29/21 11:04 Dose: 300 mg Documented by: [id number] Losartan Potassium (Losartan Potassium 50 Mg Tab) 50 mg PO QAM [facility] Stop: 04/28/21 09:28 Last Admin: 04/03/21 10:25 Dose: 50 mg Documented by: [id number] Admin: 04/02/21 08:46 Dose: 50 mg Documented by: [id number] Admin: 04/01/21 08:09 Dose: 50 mg Documented by: [id number] Admin: 03/31/21 09:32 Dose: 50 mg Documented by: [id number] Admin: 03/30/21 09:11 Dose: 50 mg Documented by: [id number] Admin: 03/29/21 11:04 Dose: 50 mg Documented by: [id number] Metoprolol Succinate (Metoprolol Succ 25mg Ext Rel Tab) 25 mg PO QAM [facility] Stop: 05/01/21 08:59 Last Admin: 04/03/21 09:47 Dose: 25 mg Documented by: [id number] Admin: 04/02/21 08:46 Dose: 25 mg Documented by: [id number] Admin: 04/01/21 08:08 Dose: 25 mg Documented by: [id number] Nystatin (Nystatin Powder 15gm Btl) 1 appln EXT BID PRN PRN Reason: Affected Skin Folds Stop: 04/28/21 09:31 Last Admin: 04/01/21 08:10 Dose: 1 appln Documented by: [id number] Timolol Maleate (Timolol Gfs 0.5% Oph Soln 74 Drops/5 Ml Btl) 1 drops OPB QAM [facility] Stop: 04/28/21 09:28 Last Admin: 04/03/21 12:52 Dose: 1 drops Documented by: [id number] Admin: 04/02/21 08:48 Dose: 1 drops Documented by: [id number] Admin: 04/01/21 08:09 Dose: 1 drops Documented by: [id number] Admin: 03/31/21 09:33 Dose: 1 drops Documented by: [id number] Admin: 03/30/21 09:12 Dose: 1 drops Documented by: [id number] Admin: 03/29/21 11:05 Dose: 1 drops Documented by: [id number] Timolol Maleate (Timolol Gfs 0.5% Oph Soln 74 Drops/5 Ml Btl) 1 drops OPL HS [facility] Stop: 04/28/21 20:59 Last Admin: 04/02/21 20:43 Dose: 1 drops Documented by: [id number] Admin: 04/01/21 20:06 Dose: 1 drops Documented by: [id number] Admin: 03/31/21 20:01 Dose: 1 drops Documented by: [id number] Admin: 03/30/21 21:02 Dose: 1 drops Documented by: [id number] Admin: 03/29/21 20:02 Dose: 1 drops Documented by: [id number] Vitamin D (Cholecalciferol 1,000 Units 25 Mcg Tab) 2,000 units PO DAILY [facility] Stop: 04/28/21 09:59 Last Admin: 04/03/21 09:47 Dose: 2,000 units Documented by: [id number] Admin: 04/02/21 08:45 Dose: 2,000 units Documented by: [id number] Admin: 04/01/21 08:08 Dose: 2,000 units Documented by: [id number] Admin: 03/31/21 09:31 Dose: 2,000 units Documented by: [id number] Admin: 03/30/21 09:10 Dose: 2,000 units Documented by: [id number] Admin: 03/29/21 11:04 Dose: 2,000 units Documented by: [id number] Discontinued Medications Diltiazem HCl (Diltiazem Hcl 30 Mg Tab) 30 mg PO Q6 [facility] Stop: 04/28/21 17:59 Last Admin: 03/30/21 17:13 Dose: Not Given Documented by: [id number] Admin: 03/30/21 11:54 Dose: Not Given Documented by: [id number] Admin: 03/30/21 05:41 Dose: 30 mg Documented by: [id number] Admin: 03/30/21 00:13 Dose: 30 mg Documented by: [id number] Admin: 03/29/21 17:00 Dose: 30 mg Documented by: [id number] Furosemide (Furosemide 40 Mg/4 Ml Vial) 20 mg IV NOW STA Stop: 03/29/21 03:45 Last Admin: 03/29/21 04:05 Dose: 20 mg Documented by: [id number] Ceftriaxone Sodium 2,000 mg/ (Dextrose) 70 mls @ 100 mls/hr IV Q24H [facility]; Protocol Stop: 04/05/21 06:59 Last Infusion: 04/03/21 07:35 Dose: 0 mls/hr Documented by: [id number] Admin: 04/03/21 06:43 Dose: 100 mls/hr Documented by: [id number] Infusion: 04/02/21 07:26 Dose: 0 mls/hr Documented by: [id number] Admin: 04/02/21 06:18 Dose: 100 mls/hr Documented by: [id number] Infusion: 10/01/21 08:07 Dose: 0 mls/hr Documented by: [id number] Admin: 04/01/21 06:42 Dose: 100 mls/hr Documented by: [id number] Infusion: 03/31/21 10:50 Dose: 0 mls/hr Documented by: [id number] Admin: 03/31/21 10:05 Dose: 100 mls/hr Documented by: [id number] Infusion: 03/30/21 07:43 Dose: 0 mls/hr Documented by: [id number] Admin: 03/30/21 06:24 Dose: 100 mls/hr Documented by: [id number] Infusion: 03/29/21 08:02 Dose: 0 mls/hr Documented by: [id number] Admin: 03/29/21 07:10 Dose: 100 mls/hr Documented by: [id number] Vancomycin HCl 2,250 mg/ (Sodium Chloride) 545 mls @ 200 mls/hr IV NOW ONE Stop: 03/29/21 11:58 Last Infusion: 03/29/21 14:17 Dose: 0 mls/hr Documented by: [id number] Admin: 03/29/21 11:03 Dose: 200 mls/hr Documented by: [id number] Furosemide 20 mg/ Syringe 2 mls @ 4 mls/min IV ONE ONE Stop: 03/29/21 11:31 Last Admin: 03/29/21 13:10 Dose: 4 mls/min Documented by: [id number] Metoprolol Succinate (Metoprolol Succ 25mg Ext Rel Tab) 25 mg PO QAM [facility] Stop: 04/28/21 09:28 Last Admin: 03/30/21 10:59 Dose: Not Given Documented by: [id number] Admin: 03/29/21 11:05 Dose: 25 mg Documented by: [id number] Metoprolol Succinate (Metoprolol Succ 25mg Ext Rel Tab) 25 mg PO BID [facility] Stop: 04/29/21 20:59 Last Admin: 03/31/21 09:35 Dose: 25 mg Documented by: [id number] Admin: 03/30/21 21:04 Dose: Not Given Documented by: [id number] Metoprolol Tartrate (Metoprolol Tartrate 1 Mg/Ml Vial) 5 mg IV NOW STA Stop: 03/29/21 03:57 Last Admin: 03/29/21 04:03 Dose: 5 mg Documented by: [id number] Metoprolol Tartrate (Metoprolol Tartrate 1 Mg/Ml Vial) 5 mg IV NOW STA Stop: 03/29/21 06:15 Last Admin: 03/29/21 06:20 Dose: 2.5 mg Documented by: [id number] Imaging Data Radiologist's Impression: Chest X-Ray 03/29/21 03:09 XR chest 1V portable CLINICAL HISTORY: SOB COMPARISON STUDY: October 31, 2020 FINDINGS: No definite pneumothorax is seen however evaluation is limited because bilateral lung apices are obscured by patient's chin.Small left pleural effusion is seen. Interval prominence of reticular opacities at the right lower lung which could represent scattered atelectasis or developing infiltrate. Diffuse prominence of pulmonary interstitium is unchanged since prior study and could represent chronic fibrosis or pulmonary edema. Dense left retrocardiac opacity associated with silhouetting of the left hemidiaphragm could represent atelectasis or infiltrate. Cardiac silhouette remains mildly enlarged. Aorta is calcified. Pulmonary vasculature is obscured.. Osseous structures: Osteopenia. Degenerative changes of the spine. IMPRESSION: 1. Mild cardiomegaly. Interval development of the small left pleural effusion. Possible pulmonary edema. 2. Reticular opacities at the right lower lung could represent atelectasis or developing infiltrate. Also there is dense left retrocardiac opacity might represent atelectasis or infiltrative process. 3. Atherosclerosis. 4. The rest of findings as above. ACT 112: Negative or not required by law. The above report was generated using voice recognition software. It may contain grammatical, syntax or spelling errors. Electronically signed by: Virginia Munroe DO 03/29/2021 10:41 AM ECG Data Attestation: I personally reviewed and interpreted this ECG as follows: Indication: + tachycardia Rate (beats per minute): 127 Rhythm: other (Atrial fibrillation with RVR versus atrial tachycardia) ECG Intervals/blocks: + Normal QT-c ECG [place]: + Normal ECG ST segments: + Nonspecific ST abnormalities ECG Findings: no PACs or no PVCs Blood Pressure Blood Pressure Findings: Elevated blood pressure Blood Pressure Disposition: further management by hospitalist Discharge Plan Visit Data Chief Complaint: Shortness of Breath/Dyspnea Stated Complaint: SHORT OF BREATH/NAUSEA - TOOK NEW MED TODAY ED Provider: Shirlene Welch Discharge Problem: Vomiting, Tachycardia, Acute UTI Patient Disposition: Admitted As Inpatient Discharge Instructions Interventions: ED Discharge Assessment Last Done: 03/29/21 08:40 Discharge Problem: Vomiting Qualifiers: Vomiting type: unspecified Vomiting Intractability: non-intractable Nausea presence: with nausea Qualified Code(s): R11.2 - Nausea with vomiting, unspecified
[2021-04-03] MEDS: TIMOLOL GFS 0.5% OPH SOLN 74 DROPS/5 ML BTL OPL SCH (21:45)
[2021-04-04] MEDS: ENOXAPARIN INJ 40 MG/0.4 ML SYR SQ SCH (07:32)
[2021-04-04] MEDS: TIMOLOL GFS 0.5% OPH SOLN 74 DROPS/5 ML BTL OPB SCH (07:33)
[2021-04-04] MEDS: DOCUSATE SODIUM 100 MG CAP PO SCH (07:34)
[2021-04-04] MEDS: CYANOCOBALAMIN 500 MCG TABLET (VITAMIN B-12) PO SCH (07:34)
[2021-04-04] MEDS: CHOLECALCIFEROL 1,000 UNITS 25 MCG TAB PO SCH (07:34)
[2021-04-04] MEDS: GABAPENTIN 300 MG CAP PO SCH (07:34)
[2021-04-04] MEDS: METOPROLOL SUCC 25MG EXT REL TAB PO SCH (07:34)
[2021-04-04] MEDS: ASPIRIN 81 MG ECTAB PO SCH (07:34)
[2021-04-04] MEDS: LOSARTAN POTASSIUM 50 MG TAB PO SCH (08:36)
--- NOTE | 2021-04-04 11:02 | Hospitalist Progress Note ---
Date of Service April 04, 2021 Assessment & Plan (1) CHF (congestive heart failure): Plan: 89yo Female PMH recurrent UTI, obesity, asthma, HTN, valve regurge here for nausea, dizziness, lightheadedness 1hr post nitrofuritoin usage. () CHFlikely acute HFpEF -possibly acutely exacerbated by nitrofuritoin one dose, which is on beer's criteria -echo = EF 60-65%, mild concentric LVH, mild dilated RV, severe b/l atrial dilation, mod. 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 Can DC ceftriaxone although. ()Obesity -rash noted under groin skin folds likely fungal, nystatin powder ordered FENa: heart healthy Code Status: full DVT PPX: lovenox PT/OT: Ongoing, goal for ongoing PT/OT at SNF/rehab Case Management: [] Dispo: rehab at SNF Acute HFpEFprobably mediated by tachycardia. Unclear if Macrobid reaction/possible allergy plays a role in causing the tachycardia or if it is just a de abisai arrhythmiagiven temporal relationship, suspect Macrobid did play a role, and this was added to her allergy list as an adverse reaction. now euvolemic. continue to follow clinically, periodically. Urinary tract infectionfinished abx Weakness/deconditioningPT OT eval and treat, unfortunately appears she will need rehab. Case management working on options - stable to go once able to Otherwise as above, DVT prophylaxis with Lovenox. (2) Recurrent UTI: (3) Generalized weakness: (4) Physical deconditioning: Admission and Anticipated Discharge Date Admission Date: March 29, 2021 Subjective Feels fine just weak. Still waiting on SNF/rehab Review of Systems Review of Systems: All systems reviewed & are unremarkable except as noted in HPI & below Physical Exam Physical Exam: In general she is awake and alert pleasant no distress. HEENT normocephalic atraumatic mucous membranes moist. Breathing unlabored, lungs are clear to auscultation bilaterally no rales rhonchi or wheeze with good effort. Cardio regular without rubs murmurs or gallops. Neuro without focal deficits. Results & Data Results & Data ([facility]) Vital Signs (Past 12 Hours) Vital Signs Temp Pulse Resp BP Pulse Ox 04/04/21 07:58 97.7 F 60 16 158/79 H 92 PG Care Time/CCT Total # of Minutes Spent Total Time Spent with Patient: Total time spent is greater than 50% in coordination of care (as documented) at patient's floor/unit and/or counseling patient: Coding Level of Care Code 87738 Subseq Hosp Care Lvl 1 Diagnoses CHF (congestive heart failure) I50.9 Recurrent UTI N39.0 Generalized weakness R53.1 Physical deconditioning R53.81
--- NOTE | 2021-04-04 11:57 | Discharge Summary ---
Date of Service April 04, 2021 Admission HPI Per Admitting Provider The patient is a 89-year-old female with a past include recurrent urinary tract infections, renal sufficiency, hiatal hernia, morbid obesity, lower extremity edema, tic douloure[place], kidney stones, asthma, hypertension, blood,, and peripheral neuropathy. She has history of urinary tract infections, and was initially to be prescribed Augmentin, which was changed to nitrofurantoin before the Augmentin got filled when she was at the pharmacy. She reports taking 1 dose of nitrofurantoin and developed the above symptoms. Principal Diagnosis Tachycardiaeither Macrobid side effect (more likely) or atrial tachycardia as a de abisai arrhythmia (less likely)with subsequent HFpEF Discharge Exam No distresssee progress note same day. Discharge Data Allergies Allergy/AdvReac Type Severity Reaction Status Date / Time Sulfa (Sulfonamide Allergy Intermediate HIVES Verified 03/29/21 02:47 Antibiotics) indomethacin AdvReac Severe SEVERE Verified 03/29/21 02:47 HEADACHE nitrofurantoin AdvReac Severe tachycardia Verified 04/03/21 18:01 [From Macrobid] (led to diastolic chf episode) Consultations 03/29/21 05:25 ED Decision to Admit Stat 03/29/21 09:29 Consult Cardiology Routine Hospital Course (1) CHF (congestive heart failure): 89yo Female PMH recurrent UTI, obesity, asthma, HTN, valve regurge here for nausea, dizziness, lightheadedness 1hr post nitrofuritoin usage. () CHFlikely acute HFpEF -Seems to been tachycardia mediated, and started very shortly after taking a dose of Macrobidso while a Denovo tachyarrhythmia certainly would not be a surprise in an 89-year-old, given that it improved over about a day, and now we are back to her home dosing of medicines with pristine heart rate control, I am quite suspicious it was a Macrobid side effect/adverse reaction. -echo = EF 60-65%, mild concentric LVH, mild dilated RV, severe b/l atrial dilat ion, mod. tricuspid regurge, mild pulm HTN RVSP 45 mmHg (improved compared to 2017) -cardio consulted, placed on diltiazem 30mg q6hr for rate control, HR down to 50-60's sinus --> switched to metoprolol 25mg BID --> 03/31 switched back to home meds, heart rates still under control -minor ESAU elevated creatinine 2/2 to lasix as would be expected with diuresis, now improved to baseline () Deconditioning -For several days really look like she was going to require SNF/rehaband as a pleasant surprise, today she is improved to where she is well enough to go home with outpatient therapy. () Recurrent UTI -While in the hospital, was treated with ceftriaxone. No further antibiotics appear necessary. ()Obesity -BMI of 42.7 likely made the deconditioning a bit slower to turn around. FENa: heart healthy Code Status: full DVT PPX: lovenox utilized during her stay PT/OT: Ongoing, fortunately now stable for home with outpatient PT Case Management: [] Dispo: Home (2) Recurrent UTI: (3) Generalized weakness: (4) Physical deconditioning: Total Time Total Time Spent Total Time Spent (In Minutes): <30 Discharge Plan Discharge Items Patient Disposition: Home - Self-Care Reason For Visit: SVT, CHF,PNEUMONIA,UTI Discharge Diagnosis: Acute on Chronic Heart Failure and UTI Activity: Resume your previous activity Non-emergency contact: Primary Care Provider Call non-emergency contact if: you have any medication questions and your symptoms worsen Follow-up/Referrals: Consuelo Ambriz MD [Primary Care Provider] - 04/06/21 11:30 am (Please follow up with Dr. Ambriz on Sunday04/06/21 at 11:30 am. Please arrive to the office at 11:15 am for your appointment. If you are unable to keep this appoitment, please call the office to reschedule at [phone].) Diet: Regular and Heart Healthy Addtl Attending Provider Instructions: Your whole situation appears to have been "spark" by a bad reaction to Macrobid (nitrofurantoin)given that shortly after you took it you started to have the racing heart rate, it really does appear that you had a reaction to the Macrobid leading to the racing heart. From there, what led to worsening, was that your heart was going fast enough that it did not quite have enough time in between heartbeats to fill with blood, leading to a "traffic jam" of blood backing up in your lungs. Because rhythm issues like this are fairly common as we get older, initially we look that it is either a reaction to the Macrobid, or simply an arrhythmia that occurred "just because". However, we have had you back on your regular home medicine for days and your heart rates have behaved perfectlymaking it way more likely this was Macrobid related. Because arrhythmias are relatively common as we age, certainly should you feel racing heart or shortness of breath againI would want you to come to be evaluated CHRISTOPHER, but the longer I have watched you, the less likely I suspect that will happen. You were weak enough that for a while it really looks like he would require going to a facility to do therapy for rehab, but is a very nice surprise, you dillon ve progressed over the last few days to where it does appear that you would be safe at home. Please note that you are not at your baseline level of strengthyou are still weaker than you normally would beand therefore when you are getting around at home it is absolutely critical for your safety/wellbeing that you think "safety first" so that you do not put yourself in a situation for a fall. What that means is when you first get out of bed, take your time sit upright for about a minute before standing, stand for a minute before walkingthat way if you were to have a fainting event (which happens most commonly whenever people first get up) you would start to feel woozy and be able to sit back down rather than fall/hit the floor. When you are walking, if you start to feel weak, remember that it is always safer to sit then to fall. Over time, with outpatient therapy, I do expect you to get stronger and back to your baselinebut until you are there, just be mindful of the fact that you are more of a risk for fall than you normally are. A discharge summary will be sent to your primary care physician to ensure continuity of care. Please bring this discharge summary with you to your next office appointment so that your provider can review it at that time. Follow-up appointments: Make a follow-up appointment with your PCP within the next week. It is very important that you follow up with them shortly after discharge from the hospital. Keep all your follow-up appointments as already scheduled. If you cannot make an appointment, notify your provider. Medications: -When it initially looked like he might be able to go home several days ago, [facility] fection, and an increased dose of metoprolol. Because you are in the hospital longer, we have treated your urinary tract infection, and no further antibiotics are necessaryso you do not need the Augmentin. Because the heart rates have slowed down on their own, and your heart rates have been behaving for days on your home dose of metoprolol, do not increase your metoprolol to twice a daythere is no need to order picker the prescription for the increased dose. CONTACT YOUR PRIMARY CARE PROVIDER if you experience any of the following: trouble breathing, palpitations, fainting Difficulty following your treatment plan, or difficulty taking medications CALL 911 OR GO TO THE EMERGENCY DEPARTMENT if you experience any of the following: Sudden, severe abdominal pain or nausea/vomiting Severe chest pain, or chest pain that radiates (moves) to your jaw or arm Sudden, severe shortness of breath or difficulty breathing Thank you for allowing us to participate in your care. Pending Studies at Discharge: No Stand-Alone Forms: My [facility], Smoking Cessation Medications and DC Order Prescriptions: Continued aspirin 81 mg tablet,delayed release (DR/EC) 81 mg PO QAM RF: 0 krill oil 500 mg capsule 500 mg PO QAM RF: 0 triamterene-hydrochlorothiazid 37.5-25 mg capsule 1 cap PO QAM RF: 0 cholecalciferol (vitamin D3) 50 mcg (2,000 unit) capsule 50 mcg PO DAILY RF: 0 timolol maleate 0.5 % gel forming solution 1 drp OPB QAM RF: 0 timolol maleate 0.5 % gel forming solution 1 drp OPL HS RF: 0 metoprolol succinate 50 mg tablet extended release 24 hr 25 mg PO QAM Qty: 90 RF: 3 losartan 100 mg tablet 50 mg PO QAM Qty: 90 RF: 3 cyanocobalamin (vitamin B-12) 500 mcg tablet 500 mcg PO DAILY Qty: 30 RF: 0 gabapentin 300 mg capsule 300 mg PO AMPM RF: 0 Discontinued nitrofurantoin macrocrystal 100 mg capsule 100 mg PO BID Qty: 10 RF: 0 Discharge Orders: Discharge Order (Routine); Ordered 04/04/21 Ordered By: Sebas Luz Admission Data Admit Date/Time: 03/29/21 06:23 Attending Provider: Sebas Luz Admit Provider: René Dalton Primary Care Provider: Consuelo Ambriz Other Providers: René Dalton ; Neftali Bautista ; Joey Marcum [facility] ; [facility] Coding Level of Care Code D/C DAY MANAGEMENT <30 MINS Diagnoses CHF (congestive heart failure) I50.9 Recurrent UTI N39.0 Generalized weakness R53.1 Physical deconditioning R53.81 Comment disregard 231
== END 2021-04-04 15:10 | disposition home health service (06) | DRG 291 ==
LOC: ED 02:32 → SUATTDRO 06:23 → 1E 06:23 → 2N 03-31 03:11 → 3N 04-01 07:46

== ENCOUNTER 2021-06-12 05:40 | Inpatient (IN) ==
[2021-06-12] MEDS ORDERED: SODIUM CHLORIDE 0.9% 1000ML 1,000 ML IV SCH (06:15)
--- NOTE | 2021-06-12 06:54 | Emergency Department Note ---
History of Present Illness General Chief complaint: Leg Weakness, Bilateral Stated complaint: WEAKNESS Time Seen by Provider: 06/12/21 06:37 Source: patient Mode of arrival: ambulatory Limitations: no limitations History of Present Illness This patient is a 89-year-old female who is brought in after having weakness and difficulty ambulating. She is been weak and shaky both her legs when she tries to walk. This is gotten worse over the last couple days. No fall or trauma. No fever or chills. Her daughter thought she was a little off a couple days ago and seems a little confused at times. No fever. They checked a urine on her is apparently clean yesterday. She gets shaky when she tries to walk at rest she has no symptoms. No fever. No cough or shortness of breath. No chest pain or shortness of breath no headache neck pain or stiffness. No dysuria hematuria. No blood or melena stool. Her daughter is concerned she could be a little dehydrated there is been no nausea vomiting or diarrhea but she is not there to monitor her fluid intake. She has had the Covid vaccine and booster. Her daughter thinks that she is missed several of her medications Home Medications Medication Instructions Recorded Confirmed Type aspirin 81 mg tablet,delayed 81 mg PO QAM tab 03/10/19 06/12/21 History release krill oil 500 mg capsule 500 mg PO QAM cap 03/10/19 06/12/21 History timolol maleate 0.5 % eye gel 1 drp OPB QAM 08/20/19 06/12/21 History forming solution timolol maleate 0.5 % eye gel 1 drp OPL HS 08/20/19 06/12/21 History forming solution gabapentin 300 mg capsule 300 mg PO AMPM 10/17/20 06/12/21 History cyanocobalamin (vitamin B-12) 500 500 mcg PO DAILY #30 tab 11/03/20 06/12/21 Rx mcg tablet losartan 100 mg tablet 50 mg PO QAM #90 tab 11/03/20 06/12/21 Rx metoprolol succinate 50 mg 25 mg PO QAM #90 tab 11/03/20 06/12/21 Rx tablet,extended release 24 hr cholecalciferol (vitamin D3) 50 50 mcg PO DAILY 02/28/21 06/12/21 History mcg (2,000 unit) capsule triamterene 37.5 1 cap PO QAM 02/28/21 06/12/21 History mg-hydrochlorothiazide 25 mg capsule Lactobac.acidophilus-Bifido.animalis 1 tab PO DAILY 04/06/21 06/12/21 History 1.5 billion cell chewable tablet methenamine hippurate 1 gram tablet 1 g PO Q12H #60 tab 04/28/21 06/12/21 Rx ciprofloxacin HCl 250 mg tablet 250 mg PO BID #10 tab 06/11/21 06/12/21 Rx (Cipro) Allergies Allergy/AdvReac Type Severity Reaction Status Date / Time Sulfa (Sulfonamide Allergy Intermediate HIVES Verified 04/06/21 11:15 Antibiotics) nitrofurantoin AdvReac Severe tachycardia Verified 04/06/21 11:15 [From Macrobid] (led to diastolic chf episode) indomethacin AdvReac Intermediate SEVERE Verified 06/12/21 11:58 HEADACHE Past Med/Surg History Medical History Acute UTI Arthritis Bronchitis Cataract Fever Glaucoma Hiatal hernia PNA (pneumonia) Recurrent UTI Recurrent UTI Vomiting Weakness Surgical History H/O tubal ligation Hx of cataract surgery Hx of vaginal hysterectomy S/P knee replacement Family History Sister Breast cancer Father Colorectal cancer Mother Hypertension Denies family history of Ovarian cancer Prostate cancer Diabetes Myocardial infarction Lung cancer Stroke Social History Smoking Status: Never smoker Tobacco Type: Cigarettes Second Hand Exposure: No; Hx Alcohol Use: No Hx Substance Use: No Preferred Language: Afghan Communication Ability: Effective 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 Beliefs That Will Affect Care: None marital status: / Current Living Situation: Family Current Living Situation Comment: [place] wialysia pt current occupational status: retired How many Children do You have: 7 Feels Safe at Home: Yes Childhood Exposure to Second-Hand Smoke: Yes caffeine: No Dental Care, Regularly: No Physical Activity Frequency: Does not Exercise Seatbelt Use: always Sunscreen Use: No Assistive Devices: Glasses and Walker Review of Systems A total of 10 systems reviewed and were otherwise negative Physical Exam Vital Signs Vital Signs - 24 hr 06/12/21 05:45 06/12/21 06:02 06/12/21 07:39 Temperature 36.9 C Temperature Source Oral Pulse Rate 52 L 52 L Pulse Rate [Apical] 56 L Pulse Rhythm [Apical] Respiratory Rate 17 17 20 Respiratory Effort / Characteristics Non-Labored Spontaneous Respiratory Depth Normal Blood Pressure 174/92 H Blood Pressure [Left Arm] 202/77 H Blood Pressure Mean 119 Blood Pressure Mean [Left Arm] 118 Pulse Oximetry 95 94 93 Oxygen Delivery Method Room Air Room Air Room Air Sepsis New/Unexplained Change in Mental Status No Sepsis Action Taken by Nursing No Action Required 06/12/21 09:00 06/12/21 11:00 06/12/21 12:00 Temperature Temperature Source Pulse Rate Pulse Rate [Apical] 52 L 56 L 51 L Pulse Rhythm [Apical] Regular Respiratory Rate 16 18 21 Respiratory Effort / Characteristics Non-Labored Spontaneous Non-Labored Spontaneous Non-Labored Spontaneous Respiratory Depth Normal Normal Normal Blood Pressure Blood Pressure [Left Arm] 204/95 H 158/81 H 205/99 H Blood Pressure Mean Blood Pressure Mean [Left Arm] 131 106 134 Pulse Oximetry 96 93 94 Oxygen Delivery Method Room Air Room Air Room Air Sepsis New/Unexplained Change in Mental Status Sepsis Action Taken by Nursing General: Well developed well nourished older female who appearsin no acute distress, breathing comfortably on room air. Normal speech HEENT: Normal cephalic atraumatic. Pupils are equal round and reactive to light. Extraocular movements are intact. Oropharynx is pink with moist mucous membranes. No swelling of the mouth lips or tongue. Neck: Supple with a midline trachea. No meningeal signs or stiffness, no JVD or bruits. No Stridor. Chest: Clear to auscultation bilaterally. No wheezes or rhonchi. No increased work of breathing. Heart: Regular rate and rhythm without murmurs or gallops. Abdomen: Soft nontender, nondistended without rebound guarding or rigidity. Extremities: No cyanosis clubbing or edema. No calf tenderness or assymetry Spine/Back. Non tender to palpation. No CVA tenderness Skin: Good turgor without rashes. Neurologic exam: Cranial nerves two through 12 are intact. Motor and sensation are intact and symmetrical throughout. Course Administered Medications Sodium Chloride (Nss 1000ml) 1,000 mls @ 100 mls/hr IV .Q10H SANCHO Stop: 06/12/21 16:14 Last Admin: 06/12/21 07:50 Dose: 100 mls/hr Documented by: [id number] Medical Decision Making Differential Diagnosis Weakness, UTI, dehydration, electrolyte or metabolic abnormality, arrhythmia, cardiac disease, anemia, central neurologic process Medical Records Attestation: I reviewed the patient's medical records. Home Medications Current Medication List: was personally reviewed by me Laboratory Data Attestation: I reviewed the patient's lab results. Result diagrams: 06/12/21 07:18 06/12/21 07:18 Lab Results 06/12/21 06/12/21 06/12/21 Range/Units 07:18 07:18 07:18 WBC 6.10 (4.8-10.8) K/uL RBC 4.55 (4.2-5.4) M/uL Hgb 14.2 (12.0-16.0) g/dL Hct 43.2 (37-47) % MCV 94.9 (80-100) fL MCH 31.2 (25-34) pg MCHC 32.9 (32-36) g/dL RDW Std Deviation 46.0 (36.4-46.3) fL RDW Coeff of Irina 13.3 (11.5-14.5) % Plt Count 136 (130-400) K/uL MPV 12.6 H (7.4-10.4) fL Immature Gran % (Auto) 0.2 % Neut % (Auto) 65.7 % Lymph % (Auto) 24.4 % Curry % (Auto) 8.2 % Eos % (Auto) 1.0 % Baso % (Auto) 0.5 % Neut # (Auto) 4.01 (1.4-6.5) K/uL Lymph # (Auto) 1.49 (1.2-3.4) K/uL Curry # (Auto) 0.50 (0.11-0.59) K/uL Eos # (Auto) 0.06 (0-0.5) K/uL Baso # (Auto) 0.03 (0-0.2) K/uL Immature Gran # (Auto) 0.01 (0.00-0.02) K/uL Sodium 143 (136-145) mmol/L Potassium 4.1 (3.5-5.1) mmol/L Chloride 109 H (98-107) mmol/L Carbon Dioxide 29 (21-32) mmol/L Anion Gap 5.0 (3-11) BUN 19 H (7-18) mg/dl Creatinine 1.16 (0.6-1.2) mg/dl Est Cr Clr Drug Dosing 37.9 ml/min Est GFR ( Amer) 48.3 ml/min Est GFR (Non-Af Amer) 41.7 ml/min BUN/Creatinine Ratio 16.6 (10-20) Glucose 92 (70-99) mg/dl Lactate 1.0 (0.4-2.0) mmol/L Calcium 9.0 (8.5-10.1) mg/dl Total Bilirubin 0.9 (0.2-1) mg/dl AST 17 (15-37) U/L ALT 14 (12-78) Alkaline Phosphatase 66 (45-117) U/L Troponin I < 0.015 (0-0.045) ng/ml Total Protein 6.9 (6.4-8.2) gm/dl Albumin 3.2 L (3.4-5.0) gm/dl Globulin 3.7 (2.5-4.0) gm/dl Albumin/Globulin Ratio 0.9 (0.9-2) TSH 4.780 H (0.300-4.500) uIu/ml Free T4 1.42 (0.8-1.6) ng/dl Urine Color Urine Appearance (Clear) Urine pH (4.5-7.5) Ur Specific [place] (1.000-1.030) Urine Protein (Negative) Urine Glucose (UA) (Negative) Urine Ketones (Negative) Urine Blood (Negative) Urine Nitrite (Negative) Urine Bilirubin (Negative) Urine Urobilinogen (Negative) Ur Leukocyte Esterase (Negative) SARS-CoV-2, RNA, NAAT (NEGATIVE) 06/12/21 06/12/21 Range/Units 07:18 07:45 WBC (4.8-10.8) K/uL RBC (4.2-5.4) M/uL Hgb (12.0-16.0) g/dL Hct (37-47) % MCV (80-100) fL MCH (25-34) pg MCHC (32-36) g/dL RDW Std Deviation (36.4-46.3) fL RDW Coeff of Irina (11.5-14.5) % Plt Count (130-400) K/uL MPV (7.4-10.4) fL Immature Gran % (Auto) % Neut % (Auto) % Lymph % (Auto) % Curry % (Auto) % Eos % (Auto) % Baso % (Auto) % Neut # (Auto) (1.4-6.5) K/uL Lymph # (Auto) (1.2-3.4) K/uL Curry # (Auto) (0.11-0.59) K/uL Eos # (Auto) (0-0.5) K/uL Baso # (Auto) (0-0.2) K/uL Immature Gran # (Auto) (0.00-0.02) K/uL Sodium (136-145) mmol/L Potassium (3.5-5.1) mmol/L Chloride (98-107) mmol/L Carbon Dioxide (21-32) mmol/L Anion Gap (3-11) BUN (7-18) mg/dl Creatinine (0.6-1.2) mg/dl Est Cr Clr Drug Dosing ml/min Est GFR ( Amer) ml/min Est GFR (Non-Af Amer) ml/min BUN/Creatinine Ratio (10-20) Glucose (70-99) mg/dl Lactate (0.4-2.0) mmol/L Calcium (8.5-10.1) mg/dl Total Bilirubin (0.2-1) mg/dl AST (15-37) U/L ALT (12-78) Alkaline Phosphatase (45-117) U/L Troponin I (0-0.045) ng/ml Total Protein (6.4-8.2) gm/dl Albumin (3.4-5.0) gm/dl Globulin (2.5-4.0) gm/dl Albumin/Globulin Ratio (0.9-2) TSH (0.300-4.500) uIu/ml Free T4 (0.8-1.6) ng/dl Urine Color Yellow Urine Appearance Clear (Clear) Urine pH 7.0 (4.5-7.5) Ur Specific [place] 1.010 (1.000-1.030) Urine Protein Negative (Negative) Urine Glucose (UA) Negative (Negative) Urine Ketones Negative (Negative) Urine Blood Negative (Negative) Urine Nitrite Negative (Negative) Urine Bilirubin Negative (Negative) Urine Urobilinogen Negative (Negative) Ur Leukocyte Esterase Negative (Negative) SARS-CoV-2, RNA, NAAT NEGATIVE (NEGATIVE) Imaging Data Attestation: I personally reviewed and interpreted this imaging study as follow s: Radiologist's Impression: Chest X-Ray 06/12/21 06:02 XR chest 1V portable CLINICAL HISTORY: weakness. Evaluate cardiopulmonary status COMPARISON STUDY: 03/21/2021 TECHNIQUE: 1 view of the chest FINDINGS: Single frontal view of the chest demonstrates the heart to again be moderately to markedly enlarged. Retrocardiac density is again seen on the left. The remainder of the lungs are clear of alveolar opacities. There is no evidence for pleural effusion. There is no evidence for vascular congestion. There is no acute osseous pathology. IMPRESSION: Moderate to marked cardiomegaly with persistent retrocardiac density on the left. ACT 112: Negative or not required by law. Electronically signed by: Luis Wahl M.D. 06/12/2021 9:[address] 06/12/21 06:48 CT head/brain wo con CLINICAL HISTORY: weakness Technique: Contiguous axial CT images of the head were acquired from the base of the skull to the vertex without intravenous contrast administration. Images were viewed in brain, subdural and bone windows. Automated dose lowering techniques and/or adjustment according to patient size were utilized for this exam. Comparison: Comparison is made to CT head 10/31/2020 Findings: Areas of decreased attenuation are present in the periventricular and subcortical white matter bilaterally consistent with small vessel ischemic disease. Generalized cerebral atrophy with commensurate enlargement of the ventricles, sulci, and cisterns is also present. There is no acute intracranial hemorrhage or evidence of acute territorial infarction. No shift of the midline structures, mass effect, or extra-axial abnormalities are shown. Atherosclerotic calcifications are present in the intracranial segments of the internal carotid arteries. Imaged portions of the paranasal sinuses and mastoid air cells are clear. The orbits appear normal. There are no acute fractures of the calvaria or scalp swelling. Impression: No acute intracranial hemorrhage, no evidence of acute territorial infarction or other acute intracranial disease process. ACT 112: Negative or not required by law. Electronically signed by: Adiel Sr M.D. 06/12/2021 8:47 AM ECG Data Attestation: I personally reviewed and interpreted this ECG as follows: Indication: + weakness Rate (beats per minute): 51 ECG Intervals/blocks: + Normal QRS, + Normal QT and + Normal MI ECG [place]: + Normal ECG ST segments: + Normal ST segments ECG Findings: no PACs or no PVCs Comparison ECG Date: from (03/31/21) Change: no significant change MDM Narrative This patient was in after having weakness. She has stable vital signs and she looks well. She is answering questions appropriately. IV access was established, EKG was obtained multiple blood test was obtained well to get a chest x-ray and a head CT. She was gently hydrated with an IVnormal saline bolus. She was reassessed frequently. EKG does not suggest acute coronary s yndrome or significant arrhythmia. Troponin is negative. No significant electrolyte or metabolic abnormality. No fever or white count to suggest infection. CAT scan of her head is unremarkable and she has a normal neurologic exam. It could be related back but she has no acute neurologic deficits nothing she has cauda equina syndrome have her try to ambulate and she says she is too weak and get shaky. Both the patient and her daughter feel she is unable to go home I did consult the [facility] hospitalist to see her in the ER for further treatment and evaluation. Continuous cardiac monitoring: Orders placed in EMR for continuous cardiac surgeon. Upon my interpretation the patient noted to be in sinus bradycardia with a rate of 55 Impression & Plan Weakness, HTN (hypertension), Ambulatory dysfunction, Lab test negative for COVID-19 virus Discharge Plan Visit Data Chief Complaint: Leg Weakness, Bilateral Stated Complaint: WEAKNESS ED Provider: Augustine Williamson Discharge Problem: Weakness, HTN (hypertension), Ambulatory dysfunction, Lab test negative for COVID-19 virus Forms Stand Alone Forms: My [facility] Prescriptions Prescriptions: No Action ciprofloxacin HCl [Cipro] 250 mg tablet 250 mg PO BID Qty: 10 RF: 0 aspirin 81 mg tablet,delayed release (DR/EC) 81 mg PO QAM RF: 0 krill oil 500 mg capsule 500 mg PO QAM RF: 0 triamterene-hydrochlorothiazid 37.5-25 mg capsule 1 cap PO QAM RF: 0 cholecalciferol (vitamin D3) 50 mcg (2,000 unit) capsule 50 mcg PO DAILY RF: 0 Lacto.acidophilus-Bif.animalis 1.5 billion cell tablet,chewable 1 tab PO DAILY RF: 0 methenamine hippurate 1 gram tablet 1 g PO Q12H Qty: 60 RF: 6 timolol maleate 0.5 % gel forming solution 1 drp OPB QAM RF: 0 timolol maleate 0.5 % gel forming solution 1 drp OPL HS RF: 0 metoprolol succinate 50 mg tablet extended release 24 hr 25 mg PO QAM Qty: 90 RF: 3 losartan 100 mg tablet 50 mg PO QAM Qty: 90 RF: 3 cyanocobalamin (vitamin B-12) 500 mcg tablet 500 mcg PO DAILY Qty: 30 RF: 0 gabapentin 300 mg capsule 300 mg PO AMPM RF: 0 Referrals Referrals: Consuelo Ambriz MD [Primary Care Provider] -
[2021-06-12 07:46] LABS: Basophils # (auto) 0.03 K/uL (0-0.2); Basophils % (auto) 0.5 %; Eosinophils # (auto) 0.06 K/uL (0-0.5); Hematocrit (blood only) 43.2 % (37-47); Hemoglobin 14.2 g/dL (12.0-16.0); Immature Granulocytes # (auto) 0.01 K/uL (0.00-0.02); Immature Granulocytes % (auto) 0.2 %; Lymphocytes # (auto) 1.49 K/uL (1.2-3.4); Lymphocytes % (auto) 24.4 %; Mean Corpuscular Hemoglobin 31.2 pg (25-34); Mean Corpuscular Hgb Conc 32.9 g/dL (32-36); Mean Corpuscular Volume 94.9 fL (80-100); Mean Platelet Volume 12.6 fL (7.4-10.4); Monocytes % (auto) 8.2 %; Neutrophils # (auto) 4.01 K/uL (1.4-6.5); Neutrophils % (auto) 65.7 %; Platelet Count 136 K/uL (130-400); RDW Coefficient of Variation 13.3 % (11.5-14.5); Red Blood Count 4.55 M/uL (4.2-5.4)
[2021-06-12 08:01] LABS: Appearance Urine Clear (Clear); Bilirubin Urine Negative (Negative); Blood Urine Negative (Negative); Color Urine Yellow; Glucose Urine UA Negative (Negative); Ketones Urine Negative (Negative); Leukocyte Esterase Urine Negative (Negative); Nitrite Urine Negative (Negative); Protein Urine Negative (Negative); Urobilinogen Urine Negative (Negative)
[2021-06-12 08:06] LABS: Alanine Aminotransferase 14 (12-78); Albumin Level 3.2 gm/dl (3.4-5.0); Aspartate Aminotransferase 17 U/L (15-37); BUN Creatinine Ratio 16.6 (10-20); Blood Urea Nitrogen 19 mg/dl (7-18); Carbon Dioxide 29 mmol/L (21-32); Chloride 109 mmol/L (98-107); Creatinine Clr Calc Pharmacy 37.9 ml/min; Est GFR (African American) 48.3 ml/min; Est GFR (Non-African American) 41.7 ml/min; Glucose 92 mg/dl (70-99); Potassium 4.1 mmol/L (3.5-5.1); Sodium 143 mmol/L (136-145)
[2021-06-12 08:16] LABS: Albumin Globulin Ratio 0.9 (0.9-2); Alkaline Phosphatase 66 U/L (45-117); Bilirubin,Total 0.9 mg/dl (0.2-1); Globulin 3.7 gm/dl (2.5-4.0); Total Protein 6.9 gm/dl (6.4-8.2); Troponin I < 0.015 ng/ml (0-0.045)
[2021-06-12 08:29] LABS: T4 Free Thyroxine 1.42 ng/dl (0.8-1.6)
--- NOTE | 2021-06-12 08:48 | CT Scan Report ---
CT head/brain wo con CLINICAL HISTORY: weakness Technique: Contiguous axial CT images of the head were acquired from the base of the skull to the mary kimber without intravenous contrast administration. Images were viewed in brain, subdural and bone [facility]. Automated dose lowering techniques and/or adjustment according to patient size were utilized for this exam. Comparison: Comparison is made to CT head 10/31/2020 Findings: Areas of decreased attenuation are present in the periventricular and subcortical white matter bilate rally consistent with small vessel ischemic disease. Generalized cerebral atrophy with commensurate e nlargement of the ventricles, sulci, and cisterns is also present. There is no acute intracranial hem orrhage or evidence of acute territorial infarction. No shift of the midline structures, mass effect, or extra-axial abnormalities are shown. Atherosclerotic calcifications are present in the intracran ial segments of the internal carotid arteries. Imaged portions of the paranasal sinuses and mastoid air cells are clear. The orbits appear normal. There are no acute fractures of the calvaria or scalp swelling. Impression: No acute intracranial hemorrhage, no evidence of acute territorial infarction or other acute intracra nial disease process. ACT 112: Negative or not required by law. Electronically signed by: Adiel Sr M.D. 06/12/2021 8:47 AM
--- NOTE | 2021-06-12 09:46 | XRay Report ---
XR chest 1V portable CLINICAL HISTORY: weakness. Evaluate cardiopulmonary status COMPARISON STUDY: 03/21/2021 TECHNIQUE: 1 view of the chest FINDINGS: Single frontal view of the chest demonstrates the heart to again be moderately to markedly enlarged. Retrocardiac density is again seen on the left. The remainder of the lungs are clear of alveolar opac ities. There is no evidence for pleural effusion. There is no evidence for vascular congestion. There is no acute osseous pathology. IMPRESSION: Moderate to marked cardiomegaly with persistent retrocardiac density on the left. ACT 112: Negative or not required by law. Electronically signed by: Luis Wahl M.D. 06/12/2021 9:45 AM
--- NOTE | 2021-06-12 11:26 | History & Physical Report ---
Date of Service June 12, 2021 Assessment & Plan (1) Weakness: Plan: Patient has been coming in with worsening weakness. Likely related with mismanaging her own medications at home. Current workup has been negative. Will monitor overnight and obtain PT E (2) Physical deconditioning: Plan: This last admission patient has remained weak. She is not very active at home. as stated above will obtain PT (3) CHF (congestive heart failure): Plan: Patient does not appear to be in acute CHF. will monitor. (4) Morbid obesity with BMI of 40.0-44.9, adult: Plan: recommend life style changes. (5) Chronic back pain: Plan: Has not been seen for years. will defer further imaging at this time. (6) DVT prophylaxis: Plan: heparin code status DNR/DNI History of Present Illness Chief Complaint: generalized weakness Primary Care Provider: Consuelo Ambriz MD 89 yo female rcomes into the hospital with a 1 week history of intermittent confusion and weakness. Her weakness has appeared to have worsened today. Patient llives in a trailer with her grandson, however her daughter has been visiting and making sure she takes her medications. However, about 2 weeks ago for a 7 day period, her daughter was not able to visit due to a COVID close contact. The daughter is unsure if she has been taking her medications during this time. Normally the patient is able to ambulate short distances in her trailer with a walker, up to about 5-6 steps. However today, she was unable to get out f bed. Her daughter mentions she has a chronic lower back problem in which she followed with [facility] years ahp/, but she does not recall the doctor, she was seeing. Thinks it started with a letter Z. She reports this week, during an episode of intermittent confusion, she mistook a chair for a bedside commode and relieved herself. This is something she normally does not do. During her last hospital stay in April, she had a diagnosis of deconditioning. She however has been active at home since. Eventhough her baseline is somewhat limited as mentioned above. Her daughter was sure this was a UTI and is surprised but was relievedd her UA is negative. Admission called for likely placement issues Allergies Allergy/AdvReac Type Severity Reaction Status Date / Time Sulfa (Sulfonamide Allergy Intermediate HIVES Verified 04/06/21 11:15 Antibiotics) nitrofurantoin AdvReac Severe tachycardia Verified 04/06/21 11:15 [From Macrobid] (led to diastolic chf episode) indomethacin AdvReac Intermediate SEVERE Verified 06/12/21 11:58 HEADACHE Home Medications Medication Instructions Recorded Confirmed Type aspirin 81 mg tablet,delayed 81 mg PO QAM tab 03/10/19 06/12/21 History release krill oil 500 mg capsule 500 mg PO QAM cap 03/10/19 06/12/21 History timolol maleate 0.5 % eye gel 1 drp OPB QAM 08/20/19 06/12/21 History forming solution timolol maleate 0.5 % eye gel 1 drp OPL HS 08/20/19 06/12/21 History forming solution gabapentin 300 mg capsule 300 mg PO AMPM 10/17/20 06/12/21 History cyanocobalamin (vitamin B-12) 500 500 mcg PO DAILY #30 tab 11/03/20 06/12/21 Rx mcg tablet losartan 100 mg tablet 50 mg PO QAM #90 tab 11/03/20 06/12/21 Rx metoprolol succinate 50 mg 25 mg PO QAM #90 tab 11/03/20 06/12/21 Rx tablet,extended release 24 hr cholecalciferol (vitamin D3) 50 50 mcg PO DAILY 02/28/21 06/12/21 History mcg (2,000 unit) capsule triamterene 37.5 1 cap PO QAM 02/28/21 06/12/21 History mg-hydrochlorothiazide 25 mg capsule Lactobac.acidophilus-Bifido.animalis 1 tab PO DAILY 04/06/21 06/12/21 History 1.5 billion cell chewable tablet methenamine hippurate 1 gram tablet 1 g PO Q12H #60 tab 04/28/21 06/12/21 Rx ciprofloxacin HCl 250 mg tablet 250 mg PO BID #10 tab 06/11/21 06/12/21 Rx (Cipro) Past Med/Surg History Medical History Acute UTI Arthritis Bronchitis Cataract Fever Glaucoma Hiatal hernia PNA (pneumonia) Recurrent UTI Recurrent UTI Vomiting Weakness Surgical History H/O tubal ligation Hx of cataract surgery Hx of vaginal hysterectomy S/P knee replacement Family History Sister Breast cancer Father Colorectal cancer Mother Hypertension Denies family history of Ovarian cancer Prostate cancer Diabetes Myocardial infarction Lung cancer Stroke Social History Smoking Status: Never smoker Tobacco Type: Cigarettes Second Hand Exposure: No; Hx Alcohol Use: No Hx Substance Use: No Preferred Language: Urdu Communication Ability: Effective 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 Beliefs That Will Affect Care: None marital status: / Current Living Situation: Family Current Living Situation Comment: [address] [place] pt current occupational status: retired How many Children do You have: 7 Feels Safe at Home: Yes Childhood Exposure to Second-Hand Smoke: Yes caffeine: No Dental Care, Regularly: No Physical Activity Frequency: Does not Exercise Seatbelt Use: always Sunscreen Use: No Assistive Devices: Glasses and Walker Review of Systems Review of Systems: The patient denies palpitations, cough, lower extremity swelling, sore throat, fevers, chills, sweats, nausea, vomiting, diarrhea , constipation, abdominal pain, pelvic pain, blood in urine or stool, dysuria, urinary frequency or urgency, lightheadedness, dizziness, headache, memory loss, loss of consciousness, rash, abnormal bruising or bleeding, imbalance, focal or generalized weakness, numbness or tingling in arms or legs, generalized arthralgias or myalgias, or night sweats. The review of systems is otherwise negative other than for that already noted above, and at least 10 systems have been reviewed. Physical Exam Physical Exam: The patient is awake, well developed and well nourished, normocephalic and atraumatic, lying in bed and in no acute distress. HEENT--PERRL, EOMI, mucous membranes and oropharynx normal. Neck--supple. No JVD. No bruits. Thyroid normal, trachea midline, no adenopathy. Heart--normal S1 and S2. No murmurs, rubs or gallops. Lungs--crackles at the left base. Mild left posterior chest ache with deep inspiration. Abdomen--normal bowel sounds and soft. Nontender. Nondistended, no hernias or masses, no organomegaly. Extremities--no cyanosis or clubbing. No edema. Dermatologic--normal skin turgor, normal color, no abnormal lymph nodes, no rash. Neurologic--cranial nerves II through XII grossly intact. Rheumatologic--normal range of motion. Psychiatric--normal affect. Results & Data Results & Data ([facility]) Vital Signs (Past 12 Hours) Vital Signs Temp Pulse Pulse Resp BP BP Pulse Ox 06/12/21 09:00 52 L 16 204/95 H 96 06/12/21 07:39 56 L 20 202/77 H 93 06/12/21 06:02 52 L 17 94 06/12/21 05:45 36.9 C 52 L 17 174/92 H 95 PG Care Time/CCT Total # of Minutes Spent Total Time Spent with Patient: Total time spent is greater than 50% in coordination of care (as documented) at patient's floor/unit and/or counseling patient: Coding Level of Care Code 76047 Initial Inpt Care Lvl 3 Diagnoses Weakness R53.1 Physical deconditioning R53.81 CHF (congestive heart failure) I50.9 Morbid obesity with BMI of 40.0-44.9, adult E66.01; Z68.41 DVT prophylaxis Z29.9 Chronic back pain M54.9; G89.29
[2021-06-12] MEDS: LOSARTAN POTASSIUM 50 MG TAB PO SCH (13:17)
[2021-06-12] MEDS: GABAPENTIN 300 MG CAP PO SCH ×2 (13:17→20:47)
[2021-06-12] MEDS: TRIAMTERENE/HCTZ 37.5/25MG CAP PO SCH (13:17)
[2021-06-12] MEDS: TIMOLOL GFS 0.5% OPH SOLN 74 DROPS/5 ML BTL OPL SCH (20:47)
[2021-06-12] MEDS ORDERED: TIMOLOL MALEATE 0.5% OPL SCH (21:00)
--- NOTE | 2021-06-12 21:56 | Electrocardiogram Report ---
Test Reason : Blood Pressure : / mmHG Vent. Rate : 051 BPM Atrial Rate : 051 BPM P-R Int : 140 ms QRS Dur : 080 ms QT Int : 462 ms P-R-T Axes : 031 -18 048 degrees QTc Int : 425 ms Sinus bradycardia Otherwise normal ECG When compared with ECG of 31-MAR-2021 06:30, No significant change was found Confirmed by Dio Lucio ([id number]) on 06/12/2021 9:56:31 PM Referred By: REFERRED SELF Confirmed By:Dio Lucio
[2021-06-13 08:49] LABS: Basophils # (auto) 0.01 K/uL (0-0.2); Basophils % (auto) 0.2 %; Eosinophils # (auto) 0.09 K/uL (0-0.5); Eosinophils % (auto) 1.6 %; Hematocrit (blood only) 42.4 % (37-47); Hemoglobin 14.1 g/dL (12.0-16.0); Immature Granulocytes # (auto) 0.01 K/uL (0.00-0.02); Immature Granulocytes % (auto) 0.2 %; Lymphocytes # (auto) 1.28 K/uL (1.2-3.4); Lymphocytes % (auto) 22.3 %; Mean Corpuscular Hemoglobin 31.7 pg (25-34); Mean Corpuscular Hgb Conc 33.3 g/dL (32-36); Mean Corpuscular Volume 95.3 fL (80-100); Mean Platelet Volume 12.3 fL (7.4-10.4); Monocytes # (auto) 0.52 K/uL (0.11-0.59); Monocytes % (auto) 9.1 %; Neutrophils # (auto) 3.82 K/uL (1.4-6.5); Neutrophils % (auto) 66.6 %; Platelet Count 133 K/uL (130-400); RDW Coefficient of Variation 13.3 % (11.5-14.5); RDW Standard Deviation 45.9 fL (36.4-46.3); Red Blood Count 4.45 M/uL (4.2-5.4); White Blood Count 5.73 K/uL (4.8-10.8)
[2021-06-13 09:08] LABS: BUN Creatinine Ratio 17.7 (10-20); Calcium 8.8 mg/dl (8.5-10.1); Creatinine Clr Calc Pharmacy 37.9 ml/min; Est GFR (African American) 48.3 ml/min; Est GFR (Non-African American) 41.7 ml/min
[2021-06-13] MEDS: TRIAMTERENE/HCTZ 37.5/25MG CAP PO SCH (10:39)
[2021-06-13] MEDS: CHOLECALCIFEROL 1,000 UNITS 25 MCG TAB PO SCH (10:39)
[2021-06-13] MEDS: GABAPENTIN 300 MG CAP PO SCH ×2 (10:40→21:29)
[2021-06-13] MEDS: ASPIRIN 81 MG ECTAB PO SCH (10:40)
[2021-06-13] MEDS: LOSARTAN POTASSIUM 50 MG TAB PO SCH (10:40)
[2021-06-13] MEDS: HEPARIN SOD 5,000 UNIT/0.5 ML VIAL SQ SCH ×2 (10:41→21:28)
[2021-06-13] MEDS: TIMOLOL GFS 0.5% OPH SOLN 74 DROPS/5 ML BTL OPB SCH (14:22)
[2021-06-13] MEDS: CYANOCOBALAMIN 500 MCG TABLET (VITAMIN B-12) PO SCH (14:22)
--- NOTE | 2021-06-13 16:32 | Hospitalist Progress Note ---
Date of Service June 13, 2021 Assessment & Plan (1) Generalized weakness: Plan: Mimi Melton is an 89 yo female with PMHx of CHF, arthritis, recurrent UTI, and generalized weakness who was admitted to [facility] on 06/12/21 due to increased generalized weakness and physical deconditioning. Generalized weakness secondary to physical deconditioning - Patient with progressively worsening generalized weakness - There does not appear to be an infectious source: UA negative, COVID negative, CXR negative, Head CT negative - Per chart review from PCP note 04/06/21, there was concern re: patient's generalized weakness/physical deconditioning on last hospital admission (d/c 04/04/21) w/ consideration for SNF/rehab at that time. 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 Patient is unable to report how much therapy she was receiving at home. - Will call patient's family for further information - Fall precautions - PT and OT evaluations ordered, pending 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; free T4 1.42 - Recommend continued outpatient f/u and management Chronic conditions Hypertension: continue losartan, triamterene/HCTZ Vitamin D deficiency: continue home vitamin D Arthritis: continue gabapentin FENGI: heart healthy diet DVT ppx: Heparin Dispo: med surge Code status: DNR/DNI (2) Physical deconditioning: (3) Subclinical hypothyroidism: Admission and Anticipated Discharge Date Admission Date: June 12, 2021 Supervising Physician Co-Signing Physician Notes Resident Physician Supervision Note: I independently interviewed and examined the patient and verified the bynum history and physical, reviewed labs and image studies and agree with resident Dr. Braxton findings and care plan. Subjective Patient seen and evaluated at bedside this morning. She reports persistent weakness and fatigue but has no other specific complaints. Patient states that she has overall been feeling well without recent illness; denies fever, chills, CP, SOB, MORILLO, lightheadedness, dizziness, abd pain, nausea, vomiting. Reports eating well. Review of Systems Review of Systems: See HPI Physical Exam Physical Exam: GENERAL: No acute distress. Well developed and well nourished. EYES: EOMI. Anicteric sclerae. HENT: Moist mucous membranes. RESPIRATORY: Clear to auscultation bilaterally. No wheezing, rales, or rhonchi. CARDIOVASCULAR: Regular rate and rhythm. + KEYLA. ABDOMEN: Soft, non-tender and non-distended. No palpable masses. Normal bowel sounds. EXTREMITIES: No edema. Non-tender. SKIN: Warm, dry. NEUROLOGIC: Alert and oriented. No focal neurological deficits. PSYCHIATRIC: Cooperative. Appropriate mood and affect. Results & Data Results & Data ([facility]) Vital Signs (Past 12 Hours) Vital Signs Temp Pulse Pulse Pulse Resp BP BP 06/13/21 16:15 63 06/13/21 16:06 36.6 C 63 20 141/82 H 06/13/21 12:06 36.3 C L 63 20 157/73 H 06/13/21 12:00 61 06/13/21 11:04 36.7 C 62 20 183/80 H 06/13/21 04:38 37.1 C 60 22 155/79 H Pulse Ox 06/13/21 16:15 06/13/21 16:06 93 06/13/21 12:06 96 06/13/21 12:00 06/13/21 11:04 91 06/13/21 04:38 93 Laboratory Results 06/13/21 06/13/21 Range/Units 08:38 08:38 WBC 5.73 (4.8-10.8) K/uL RBC 4.45 (4.2-5.4) M/uL Hgb 14.1 (12.0-16.0) g/dL Hct 42.4 (37-47) % MCV 95.3 (80-100) fL MCH 31.7 (25-34) pg MCHC 33.3 (32-36) g/dL RDW Std Deviation 45.9 (36.4-46.3) fL RDW Coeff of Irina 13.3 (11.5-14.5) % Plt Count 133 (130-400) K/uL MPV 12.3 H (7.4-10.4) fL Immature Gran % (Auto) 0.2 % Neut % (Auto) 66.6 % Lymph % (Auto) 22.3 % [place] % (Auto) 9.1 % Eos % (Auto) 1.6 % Baso % (Auto) 0.2 % Neut # (Auto) 3.82 (1.4-6.5) K/uL Lymph # (Auto) 1.28 (1.2-3.4) K/uL [place] # (Auto) 0.52 (0.11-0.59) K/uL Eos # (Auto) 0.09 (0-0.5) K/uL Baso # (Auto) 0.01 (0-0.2) K/uL Immature Gran # (Auto) 0.01 (0.00-0.02) K/uL Sodium 140 (136-145) mmol/L Potassium 4.0 (3.5-5.1) mmol/L Chloride 107 (98-107) mmol/L Carbon Dioxide 29 (21-32) mmol/L Anion Gap 4.0 (3-11) BUN 21 H (7-18) mg/dl Creatinine 1.16 (0.6-1.2) mg/dl Est Cr Clr Drug Dosing 37.9 ml/min Est GFR ( Amer) 48.3 ml/min Est GFR (Non-Af Amer) 41.7 ml/min BUN/Creatinine Ratio 17.7 (10-20) Glucose 90 (70-99) mg/dl Calcium 8.8 (8.5-10.1) mg/dl Resident Activity Tracking Resident Involvement: Resident Care Provided Care Provided: Adult Hospital Medicine
[2021-06-13] MEDS: TIMOLOL GFS 0.5% OPH SOLN 74 DROPS/5 ML BTL OPL SCH (21:30)
[2021-06-14] MEDS: ACETAMINOPHEN 325 MG TAB PO PRN (07:14)
[2021-06-14] MEDS: HEPARIN SOD 5,000 UNIT/0.5 ML VIAL SQ SCH ×2 (09:02→22:05)
[2021-06-14] MEDS: TIMOLOL GFS 0.5% OPH SOLN 74 DROPS/5 ML BTL OPB SCH (09:02)
[2021-06-14] MEDS: LOSARTAN POTASSIUM 50 MG TAB PO SCH (09:03)
[2021-06-14] MEDS: ASPIRIN 81 MG ECTAB PO SCH (09:03)
[2021-06-14] MEDS: CYANOCOBALAMIN 500 MCG TABLET (VITAMIN B-12) PO SCH (09:03)
[2021-06-14] MEDS: GABAPENTIN 300 MG CAP PO SCH ×2 (09:03→22:05)
[2021-06-14] MEDS: CHOLECALCIFEROL 1,000 UNITS 25 MCG TAB PO SCH (09:03)
[2021-06-14] MEDS: TRIAMTERENE/HCTZ 37.5/25MG CAP PO SCH (09:03)
--- NOTE | 2021-06-14 19:08 | Hospitalist Progress Note ---
Date of Service June 14, 2021 Assessment & Plan (1) Generalized weakness: Plan: Mimi Melton is an 89 yo female with PMHx of CHF, arthritis, recurrent UTI, and generalized weakness who was admitted to [facility] on 06/12/21 due to increased generalized weakness and physical deconditioning. Generalized weakness secondary to physical deconditioning - Patient with progressively worsening generalized weakness - There does not appear to be an infectious source: UA negative, COVID negative, CXR negative, Head CT negative - Per chart review from PCP note 04/06/21, there was concern re: patient's generalized weakness/physical deconditioning on last hospital admission (d/c 04/04/21) w/ consideration for SNF/rehab at that time. However, due to COVID and availability, vise hand and family decided on home PT/OT. Patient is unable to report how much therapy she was receiving at home. - Fall precautions - PT and OT evaluations ordered. Recommending further rehab upon discharge. SNF placement pending; case management on board with search. 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; free T4 1.42 - Recommend continued outpatient f/u and management Chronic conditions Hypertension: continue losartan, triamterene/HCTZ Vitamin D deficiency: continue home vitamin D Arthritis: continue gabapentin FENGI: heart healthy diet DVT ppx: Heparin Dispo: med surge Code status: DNR/DNI (2) Physical deconditioning: (3) Subclinical hypothyroidism: Admission and Anticipated Discharge Date Admission Date: June 12, 2021 Supervising Physician Co-Signing Physician Notes Resident Physician Supervision Note: I independently interviewed and examined the patient and verified the bynum history and physical, reviewed labs and image studies and agree with resident Dr. Braxton findings and care plan. Subjective Patient seen and evaluated at bedside this morning. Reports no significant change from yesterday with regards to her feeling of weakness. However, reports overall feeling well. Denies fever, chills, CP, SOB, MORILLO, lightheadedness, dizziness, abdominal pain, nausea, vomiting. Last BM yesterday. States that she is eating well. Review of Systems Review of Systems: See HPI Physical Exam Physical Exam: GENERAL: No acute distress. Well developed and well nourished. Vital signs reviewed as above. EYES: EOMI. Anicteric sclerae. HENT: Moist mucous membranes. RESPIRATORY: Clear to auscultation bilaterally. No wheezing, rales, or rhonchi. CARDIOVASCULAR: Regular rate and rhythm. + murmur. ABDOMEN: Soft, non-tender and non-distended. No palpable masses. Normal bowel sounds. EXTREMITIES: No edema. Non-tender. SKIN: Warm, dry. NEUROLOGIC: A/O x3. No focal neurological deficits. PSYCHIATRIC: Cooperative. Appropriate mood and affect. Results & Data Results & Data ([facility]) Vital Signs (Past 12 Hours) Vital Signs Temp Pulse Pulse Resp BP BP Pulse Ox 06/14/21 18:37 36.2 C L 63 20 115/70 95 06/14/21 15:39 53 L 06/14/21 15:25 36.4 C L 83 16 124/66 94 06/14/21 11:21 36.5 C 55 L 18 108/71 92 06/14/21 07:59 55 L 06/14/21 07:30 36.4 C L 60 18 157/77 H 93 Resident Activity Tracking Resident Involvement: Resident Care Provided Care Provided: Adult Hospital Medicine
[2021-06-14] MEDS: TIMOLOL GFS 0.5% OPH SOLN 74 DROPS/5 ML BTL OPL SCH (22:05)
[2021-06-15] MEDS: HEPARIN SOD 5,000 UNIT/0.5 ML VIAL SQ SCH ×2 (08:35→20:28)
[2021-06-15] MEDS: CHOLECALCIFEROL 1,000 UNITS 25 MCG TAB PO SCH (08:35)
[2021-06-15] MEDS: TRIAMTERENE/HCTZ 37.5/25MG CAP PO SCH (08:35)
[2021-06-15] MEDS: CYANOCOBALAMIN 500 MCG TABLET (VITAMIN B-12) PO SCH (08:35)
[2021-06-15] MEDS: LOSARTAN POTASSIUM 50 MG TAB PO SCH (08:35)
[2021-06-15] MEDS: ASPIRIN 81 MG ECTAB PO SCH (08:36)
[2021-06-15] MEDS: TIMOLOL GFS 0.5% OPH SOLN 74 DROPS/5 ML BTL OPB SCH (08:36)
[2021-06-15] MEDS: GABAPENTIN 300 MG CAP PO SCH ×2 (10:10→20:28)
--- NOTE | 2021-06-15 10:20 | Hospitalist Progress Note ---
Date of Service June 15, 2021 Assessment & Plan (1) Generalized weakness: Plan: Mimi Melton is an 89 yo female with PMHx of CHF, arthritis, recurrent UTI, and generalized weakness who was admitted to [facility] on 06/12/21 due to increased generalized weakness and physical deconditioning. Generalized weakness secondary to physical deconditioning - Patient with progressively worsening generalized weakness - There does not appear to be an infectious source: UA negative, COVID negative, CXR negative, Head CT negative - Per chart review from PCP note 04/06/21, there was concern re: patient's generalized weakness/physical deconditioning on last hospital admission (d/c 04/04/21) w/ consideration for SNF/rehab at that time. 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 Patient is unable to report how much therapy she was receiving at home. - Fall precautions - PT and OT evaluations ordered. Recommending further rehab upon discharge. SNF placement pending; case management on board with search. Constipation - Start Miralax po daily 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; free T4 1.42 - Recommend continued outpatient f/u and management Chronic conditions Hypertension: continue losartan, triamterene/HCTZ Vitamin D deficiency: continue home vitamin D Arthritis: continue gabapentin FENGI: heart healthy diet DVT ppx: Heparin Dispo: med surge; awaiting placement for SNF Code status: DNR/DNI (2) Physical deconditioning: (3) Subclinical hypothyroidism: Admission and Anticipated Discharge Date Admission Date: June 12, 2021 Supervising Physician Co-Signing Physician Notes Resident Physician Supervision Note: I independently interviewed and examined the patient and verified the bynum history and physical, reviewed labs and image studies and agree with resident Dr. Braxton findings and care plan. Subjective Patient seen and evaluated at bedside this morning. Reports no significant change from yesterday with regards to her feeling of weakness. Does report some mild constipation with last BM being 2 days ago; typically has BM daily; does request something to help with the constipation. Otherwise is feeling well. Eating well w/o abdominal pain, nausea, or vomiting. Denies fever, chills, CP, SOB, MOR[place]O, lightheadedness, or dizziness. Review of Systems Review of Systems: See HPI Physical Exam Physical Exam: GENERAL: No acute distress. Well developed and well nourished. Vital signs reviewed as above. EYES: EOMI. Anicteric sclerae. HENT: Moist mucous membranes. RESPIRATORY: Clear to auscultation bilaterally. No wheezing, rales, or rhonchi. CARDIOVASCULAR: Regular rate and rhythm. + murmur. ABDOMEN: Soft, non-tender and non-distended. No palpable masses. Normal bowel sounds. EXTREMITIES: No edema. Non-tender. SKIN: Warm, dry. NEUROLOGIC: A/O x3. No focal neurological deficits. PSYCHIATRIC: Cooperative. Appropriate mood and affect. Results & Data Results & Data ([facility]) Vital Signs (Past 12 Hours) Vital Signs Temp Pulse Pulse Resp BP Pulse Ox 06/15/21 08:07 36.4 C L 61 18 129/71 90 06/15/21 07:25 59 L 06/15/21 04:00 36.3 C L 62 18 146/85 H 91 06/14/21 23:00 36.2 C L 55 L 18 159/84 H 90 Resident Activity Tracking Resident Involvement: Resident Care Provided Care Provided: Adult Hospital Medicine
[2021-06-15] MEDS: POLYETHYLENE (MIRALAX) 17 GM PACK PO SCH (10:46)
[2021-06-15] MEDS: TIMOLOL GFS 0.5% OPH SOLN 74 DROPS/5 ML BTL OPL SCH (20:29)
[2021-06-16] MEDS: ASPIRIN 81 MG ECTAB PO SCH (08:32)
[2021-06-16] MEDS: GABAPENTIN 300 MG CAP PO SCH ×2 (08:32→20:45)
[2021-06-16] MEDS: TRIAMTERENE/HCTZ 37.5/25MG CAP PO SCH (08:33)
[2021-06-16] MEDS: LOSARTAN POTASSIUM 50 MG TAB PO SCH (08:33)
[2021-06-16] MEDS: CHOLECALCIFEROL 1,000 UNITS 25 MCG TAB PO SCH (08:33)
[2021-06-16] MEDS: CYANOCOBALAMIN 500 MCG TABLET (VITAMIN B-12) PO SCH (08:33)
[2021-06-16] MEDS: POLYETHYLENE (MIRALAX) 17 GM PACK PO SCH (08:33)
[2021-06-16] MEDS: TIMOLOL GFS 0.5% OPH SOLN 74 DROPS/5 ML BTL OPB SCH (08:34)
[2021-06-16] MEDS: HEPARIN SOD 5,000 UNIT/0.5 ML VIAL SQ SCH ×2 (08:34→20:45)
--- NOTE | 2021-06-16 11:54 | Hospitalist Progress Note ---
Date of Service June 16, 2021 Assessment & Plan (1) Generalized weakness: Plan: Mimi Melton is an 89 yo female with PMHx of CHF, arthritis, recurrent UTI, and generalized weakness who was admitted to [facility] on 06/12/21 due to increased generalized weakness and physical deconditioning. Generalized weakness secondary to physical deconditioning - Patient with progressively worsening generalized weakness - There does not appear to be an infectious source: UA negative, COVID negative, CXR negative, Head CT negative - Per chart review from PCP note 04/06/21, there was concern re: patient's generalized weakness/physical deconditioning on last hospital admission (d/c 04/04/21) w/ consideration for SNF/rehab at that time. 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 Patient is unable to report how much therapy she was receiving at home. - Fall precautions - PT and OT evaluations ordered. Recommending further rehab upon discharge. SNF placement pending; case management on board with search for SNF. Also w/ discussion re: return home with 22/01 care, still in process. Constipation - Continue Miralax po daily 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; free T4 1.42 - Recommend continued outpatient f/u and management Chronic conditions Hypertension: continue losartan, triamterene/HCTZ Vitamin D deficiency: continue home vitamin D Arthritis: continue gabapentin FENGI: heart healthy diet DVT ppx: Heparin Dispo: med surge; awaiting placement for SNF vs d/c home with 24 support Code status: DNR/DNI (2) Physical deconditioning: (3) Subclinical hypothyroidism: Admission and Anticipated Discharge Date Admission Date: June 12, 2021 Supervising Physician Co-Signing Physician Notes Resident Physician Supervision Note: I independently interviewed and examined the patient and verified the bynum history and physical, reviewed labs and image studies and agree with resident Dr. Braxton findings and care plan. Subjective Patient seen and evaluated at bedside this morning. No acute events overnight. States that she is overall feeling well this morning. She did have a bowel movement yesterday after starting the Miralax. Eating well w/o abdominal pain, nausea, or vomiting. Denies fever, chills, CP, SOB, MOR[place]O, lightheadedness, or dizziness. No specific concerns to report. Review of Systems Review of Systems: See HPI Physical Exam Physical Exam: GENERAL: No acute distress. Well developed and well nourished. Vital signs reviewed as above. Sitting up, eating breakfast in bed. EYES: EOMI. Anicteric sclerae. HENT: Moist mucous membranes. RESPIRATORY: Clear to auscultation bilaterally. No wheezing, rales, or rhonchi. CARDIOVASCULAR: Regular rate and rhythm. + murmur. ABDOMEN: Soft, non-tender and non-distended. No palpable masses. Normal bowel sounds. EXTREMITIES: No edema. Non-tender. SKIN: Warm, dry. NEUROLOGIC: A/O x3. No focal neurological deficits. PSYCHIATRIC: Cooperative. Appropriate mood and affect. Results & Data Results & Data ([facility]) Vital Signs (Past 12 Hours) Vital Signs Temp Pulse Pulse Resp BP BP Pulse Ox 06/16/21 11:22 36.6 C 55 L 16 110/69 92 06/16/21 07:38 36.4 C L 59 L 16 153/89 H 97 06/16/21 04:00 36.4 C L 80 18 125/75 94 06/16/21 03:41 72 Resident Activity Tracking Resident Involvement: Resident Care Provided Care Provided: Adult Hospital Medicine
[2021-06-16] MEDS: TIMOLOL GFS 0.5% OPH SOLN 74 DROPS/5 ML BTL OPL SCH (20:45)
[2021-06-16] MEDS: ACETAMINOPHEN 325 MG TAB PO PRN (22:41)
--- NOTE | 2021-06-17 08:00 | Hospitalist Progress Note ---
Date of Service June 17, 2021 Assessment & Plan (1) Generalized weakness: Plan: Mimi Melton is an 89 yo female with PMHx of CHF, arthritis, recurrent UTI, and generalized weakness who was admitted to [facility] on 06/12/21 due to increased generalized weakness and physical deconditioning. Generalized weakness secondary to physical deconditioning - Patient with progressively worsening generalized weakness - There does not appear to be an infectious source: UA negative, COVID negative, CXR negative, Head CT negative - Per chart review from PCP note 04/06/21, there was concern re: patient's generalized weakness/physical deconditioning on last hospital admission (d/c 04/04/21) w/ consideration for SNF/rehab at that time. 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 Patient is unable to report how much therapy she was receiving at home. - Fall precautions - PT and OT evaluations ordered. Recommending further rehab upon discharge. SNF placement pending; case management on board with search for SNF. Also w/ discussion re: return home with 24/7 care, still in process. -Tentative plan is home with 24/7 care, patient's family is currently arranging care. Constipation -MiraLAX every 4 until bowel movement -Senna every morning Questionable aspiration Noted by nursing this morning, patient was made n.p.o. and speech was consulted. They do not feel as if there is any significant signs of dysphagia or aspiration and feel like her symptoms are largely esophageal in nature. They do not recommend a video swallow study and if patient's family would like to be aggressive recommend an EGD. -advance diet 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; free T4 1.42 - Recommend continued outpatient f/u and management Chronic conditions Hypertension: continue losartan, triamterene/HCTZ Vitamin D deficiency: continue home vitamin D Arthritis: continue gabapentin FENGI: heart healthy diet DVT ppx: Heparin Dispo: med surge; awaiting placement for SNF vs d [facility] Mimi Melton when her family, negative home with 24/7 support Code status: DNR/DNI (2) Physical deconditioning: (3) Subclinical hypothyroidism: Admission and Anticipated Discharge Date Admission Date: June 12, 2021 Supervising Physician Co-Signing Physician Notes Resident Physician Supervision Note: I independently interviewed and examined the patient and verified the bynum history and physical, reviewed labs and image studies and agree with resident Dr. Vipin Gutiérrez findings and care plan. Subjective Patient lying in bed this morning in no acute distress. Reported no acute events overnight. Reports tolerating a diet, sleeping, voiding, has not had a bowel movement in several days. Patient has no acute concerns or questions Review of Systems Review of Systems: All systems reviewed & are unremarkable except as noted in HPI & below Physical Exam Physical Exam: General: No acute distress HEENT: Normocephalic atraumatic Neck: No significant lymphadenopathy, trachea midline, normal to visual inspection Cardiac: Regular rate and rhythm, normal S1, normal S2, I did not appreciated any significant murmurs rubs or gallops, I did not appreciate any significant pedal edema, No calf tenderness, capillary refill is less than 3 seconds Respiratory: Clear to auscultation bilaterally with symmetrical chest rise, I did not appreciate any significant wheezes, rales, rhonchi, no increased work of breathing GI: Normal bowel sounds, soft, nontender in all 4 quadrants, nondistended MSK: No sensory or motor changes, moves all extremities without issue, extremities are warm and well-perfused Skin: Olean, clean, dry, intact. Neuro: Alert and oriented x4 Psych: Calm, cooperative, logical thought process Results & Data Results & Data ([facility]) Vital Signs (Past 12 Hours) Vital Signs Temp Pulse Pulse Resp BP Pulse Ox 06/17/21 07:53 36.4 C L 06/17/21 03:43 36.4 C L 60 18 117/63 92 06/16/21 23:02 62 06/16/21 23:00 36.6 C 61 18 112/52 L 94 Medications Administered Current Inpatient Medications Acetaminophen (Acetaminophen 325 Mg Tab) 650 mg PO Q4H PRN PRN Reason: pain/fever Stop: 07/12/21 11:40 Last Admin: 06/16/21 22:41 Dose: 650 mg Documented by: Aspirin (Aspirin 81 Mg Ectab) 81 mg PO QAM [facility] Stop: 07/13/21 08:59 Last Admin: 06/16/21 08:32 Dose: 81 mg Documented by: Cyanocobalamin (Cyanocobalamin 500 Mcg Tablet (Vitamin B-12)) 500 mcg PO DAILY [facility] Stop: 07/13/21 08:59 Last Admin: 06/16/21 08:33 Dose: 500 mcg Documented by: Gabapentin (Gabapentin 300 Mg Cap) 300 mg PO BID [facility] Stop: 07/12/21 12:59 Last Admin: 06/16/21 20:45 Dose: 300 mg Documented by: Heparin Sodium (Porcine) (Heparin Sod 5,000 Unit/0.5 Ml Vial) 5,000 units SQ Q12 [facility] Stop: 07/13/21 08:59 Last Admin: 06/16/21 20:45 Dose: 5,000 units Documented by: Losartan Potassium (Losartan Potassium 50 Mg Tab) 50 mg PO QAM [facility] Stop: 07/12/21 11:59 Last Admin: 06/16/21 08:33 Dose: 50 mg Documented by: Polyethylene Glycol (Polyethylene (Miralax) 17 Gm Pack) 17 gm PO DAILY [facility] Stop: 07/15/21 10:29 Last Admin: 06/16/21 08:33 Dose: 17 gm Documented by: Timolol Maleate (Timolol Gfs 0.5% Oph Soln 74 Drops/5 Ml Btl) 1 drops OPB QA [facility] Stop: 07/13/21 08:59 Last Admin: 06/16/21 08:34 Dose: 1 drops Documented by: Timolol Maleate (Timolol Gfs 0.5% Oph Soln 74 Drops/5 Ml Btl) 1 drops OPL HS [facility] Stop: 07/12/21 20:59 Last Admin: 06/16/21 20:45 Dose: 1 drops Documented by: Triamterene/Hydrochlorothiazide (Triamterene/Hctz 37.5/25mg Cap) 1 cap PO QAM [facility] Stop: 07/12/21 11:59 Last Admin: 06/16/21 08:33 Dose: 1 cap Documented by: Vitamin D (Cholecalciferol 1,000 Units 25 Mcg Tab) 2,000 units PO DAILY [facility] Stop: 07/13/21 08:59 Last Admin: 06/16/21 08:33 Dose: 2,000 units Documented by:
[2021-06-17] MEDS: TRIAMTERENE/HCTZ 37.5/25MG CAP PO SCH ×2 (08:38→12:22)
[2021-06-17] MEDS: GABAPENTIN 300 MG CAP PO SCH ×3 (08:38→21:42)
[2021-06-17] MEDS: HEPARIN SOD 5,000 UNIT/0.5 ML VIAL SQ SCH ×2 (08:38→21:43)
[2021-06-17] MEDS: LOSARTAN POTASSIUM 50 MG TAB PO SCH ×2 (08:38→12:22)
[2021-06-17] MEDS: POLYETHYLENE (MIRALAX) 17 GM PACK PO SCH ×5 (08:38→21:42)
[2021-06-17] MEDS: CYANOCOBALAMIN 500 MCG TABLET (VITAMIN B-12) PO SCH ×2 (08:38→12:21)
[2021-06-17] MEDS: ASPIRIN 81 MG ECTAB PO SCH ×2 (08:39→12:23)
[2021-06-17] MEDS: CHOLECALCIFEROL 1,000 UNITS 25 MCG TAB PO SCH ×2 (08:39→12:21)
[2021-06-17] MEDS: TIMOLOL GFS 0.5% OPH SOLN 74 DROPS/5 ML BTL OPB SCH (09:46)
[2021-06-17] MEDS: SENNA 8.6 MG TAB PO SCH (12:19)
[2021-06-17] MEDS: TIMOLOL GFS 0.5% OPH SOLN 74 DROPS/5 ML BTL OPL SCH (21:43)
[2021-06-18] MEDS: POLYETHYLENE (MIRALAX) 17 GM PACK PO SCH ×7 (00:19→23:06)
[2021-06-18] MEDS: ASPIRIN 81 MG ECTAB PO SCH (08:28)
[2021-06-18] MEDS: CYANOCOBALAMIN 500 MCG TABLET (VITAMIN B-12) PO SCH (08:29)
[2021-06-18] MEDS: LOSARTAN POTASSIUM 50 MG TAB PO SCH (08:29)
[2021-06-18] MEDS: TRIAMTERENE/HCTZ 37.5/25MG CAP PO SCH (08:29)
[2021-06-18] MEDS: SENNA 8.6 MG TAB PO SCH (08:29)
[2021-06-18] MEDS: GABAPENTIN 300 MG CAP PO SCH ×2 (08:31→20:21)
[2021-06-18] MEDS: CHOLECALCIFEROL 1,000 UNITS 25 MCG TAB PO SCH (08:31)
[2021-06-18] MEDS: HEPARIN SOD 5,000 UNIT/0.5 ML VIAL SQ SCH ×2 (08:32→20:21)
[2021-06-18] MEDS: TIMOLOL GFS 0.5% OPH SOLN 74 DROPS/5 ML BTL OPB SCH (08:32)
--- NOTE | 2021-06-18 10:49 | Hospitalist Progress Note ---
Date of Service June 18, 2021 Assessment & Plan (1) Generalized weakness: Plan: Mimi Melton is an 89 yo female with PMHx of CHF, arthritis, recurrent UTI, and generalized weakness who was admitted to [facility] on 06/12/21 due to increased generalized weakness and physical deconditioning. Generalized weakness secondary to physical deconditioning - Patient with progressively worsening generalized weakness - There does not appear to be an infectious source: UA negative, COVID negative, CXR negative, Head CT negative - Per chart review from PCP note 04/06/21, there was concern re: patient's generalized weakness/physical deconditioning on last hospital admission (d/c 04/04/21) w/ consideration for SNF/rehab at that time. 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 Patient is unable to report how much therapy she was receiving at home. - Fall precautions - PT and OT evaluations ordered. Recommending further rehab upon discharge. SNF placement pending; case management on board with search for SNF. Also w/ discussion re: return home with 24/7 care, still in process. Currently, tentative plan is for discharge home with 24/7 care which patient's family is still securing. Case management assisting with search. - Continue PT/OT during hospitalization. Constipation -MiraLAX q4h until bowel movement. Senna qAM. Questionable aspiration - Noted by nursing on 06/17 that patient w/ questionable aspiration while eating breakfast. She was made NPO and speech was consulted. Fortunately, they do not feel as if there is any significant signs of dysphagia or aspiration and feel like her symptoms are largely esophageal in nature. Do not recommend a video swallow study. If patient's family would like to be aggressive, can recommend further evaluation with EGD. - Patient back on full diet, heart healthy, easy to chew -- she reports tolerating this diet well. 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; free T4 1.42 - Recommend continued outpatient f/u and management Chronic conditions Hypertension: continue losartan, triamterene/HCTZ Vitamin D deficiency: continue home vitamin D Arthritis: continue gabapentin FENGI: heart healthy diet DVT ppx: Heparin Dispo: med surge; awaiting placement for SNF vs home with 24/7 support Code status: DNR/DNI (2) Physical deconditioning: (3) Subclinical hypothyroidism: Admission and Anticipated Discharge Date Admission Date: June 12, 2021 Supervising Physician Co-Signing Physician Notes Resident Physician Supervision Note: I independently interviewed and examined the patient and verified the bynum history and physical, reviewed labs and image studies and agree with resident Dr. Braxton findings and care plan. Subjective No acute events overnight. Patient seen and evaluated at bedside this morning. She is sitting in chair at bedside eating breakfast. Reports persistent weakness/fatigue, otherwise patient with no specific complaints or concerns. Is eating well w/o abdominal pain, nausea, or vomiting. Has been taking Miralax since yesterday and also had Senna this AM; has not yet had a BM but states that she does feel the urge now. Denies CP, SOB, [place], lightheadedness, dizziness, pain in legs. Review of Systems Review of Systems: See HPI Physical Exam Physical Exam: GENERAL: No acute distress. Well developed and well nourished. Vital signs reviewed as above. Sitting in chair at bedside eating breakfast w/o difficulty. EYES: EOMI. Anicteric sclerae. HENT: Moist mucous membranes. RESPIRATORY: Clear to auscultation bilaterally. No wheezing, rales, or rhonchi. CARDIOVASCULAR: Regular rate and rhythm. + murmur. ABDOMEN: Soft, non-tender and non-distended. No palpable masses. Normal bowel sounds. SKIN: Warm, dry. Well perfused. NEUROLOGIC: A/O x3. No focal neurological deficits. PSYCHIATRIC: Cooperative. Appropriate mood and affect. Results & Data Results & Data ([facility]) Vital Signs (Past 12 Hours) Vital Signs Temp Pulse Pulse Resp BP BP Pulse Ox 06/18/21 08:14 36.5 C 62 20 123/79 94 06/18/21 07:15 57 L 06/18/21 05:14 66 06/18/21 03:08 36.1 C L 57 L 18 129/71 97 06/17/21 23:09 36.7 C 61 18 106/77 93 Resident Activity Tracking Resident Involvement: Resident Care Provided Care Provided: Adult Hospital Medicine
[2021-06-18] MEDS: TIMOLOL GFS 0.5% OPH SOLN 74 DROPS/5 ML BTL OPL SCH (20:22)
[2021-06-19] MEDS: POLYETHYLENE (MIRALAX) 17 GM PACK PO SCH ×6 (02:59→21:13)
--- NOTE | 2021-06-19 06:57 | Hospitalist Progress Note ---
Date of Service June 19, 2021 Assessment & Plan (1) Generalized weakness: Plan: Mimi Melton is an 89 yo female with PMHx of CHF, arthritis, recurrent UTI, and generalized weakness who was admitted to [facility] on 06/12/21 due to increased generalized weakness and physical deconditioning. Generalized weakness secondary to physical deconditioning - Patient with progressively worsening generalized weakness - There does not appear to be an infectious source: UA negative, COVID negative, CXR negative, Head CT negative - Per chart review from PCP note 04/06/21, there was concern re: patient's generalized weakness/physical deconditioning on last hospital admission (d/c 04/04/21) w/ consideration for SNF/rehab at that time. 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 Patient is unable to report how much therapy she was receiving at home. - Fall precautions - PT and OT evaluations ordered. Recommending further rehab upon discharge. SNF placement pending;Case management assisting with search. - Continue PT/OT during hospitalization. Dehydration - elev bun/cr to 40s - cumulative 6.6in 6.6 out. 24 hrs 100 in 725 out - hold home triamterene/hctz. - reassess in am Hypotension and bradycardia - soft BP 97/50 and jeff to 47, held triamterene/hctz and losartan Constipation -MiraLAX q4h until bowel movement. Senna qAM. Questionable aspiration - Noted by nursing on 06/17 that patient w/ questionable aspiration while eating breakfast. She was made NPO and speech was consulted. Fortunately, they do not feel as if there is any significant signs of dysphagia or aspiration and feel like her symptoms are largely esophageal in nature. Do not recommend a video swallow study. If patient's family would like to be aggressive, can recommend further evaluation with EGD. - Patient back on full diet, heart healthy, easy to chew -- she reports tolerating this diet well. 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; free T4 1.42 - results less reliable in setting of acute illness - Recommend continued outpatient f/u and management Chronic conditions Hypertension: continue losartan Vitamin D deficiency: continue home vitamin D Arthritis: continue gabapentin FENGI: heart healthy diet, easy to chew. No IV fluids DVT ppx: Heparin sq 5000 q12 Dispo: med surg; awaiting placement for [facility] Code status: DNR/DNI (2) Physical deconditioning: (3) Subclinical hypothyroidism: Admission and Anticipated Discharge Date Admission Date: June 12, 2021 Supervising Physician Co-Signing Physician Notes Resident Physician Supervision Note: I independently interviewed and examined the patient and verified the bynum history and physical, reviewed labs and image studies and agree with resident Dr. Guardado findings and care plan. Subjective Feeling ok, about same as yesterday. No cp, sob, f/c, n/v, headache. Somewhat weak/tired. Denies numbness/tingling. Denies lightheaded/dizziness. Ate breakfast. Last BM yesterday. Review of Systems Review of Systems: All systems reviewed & are unremarkable except as noted in HPI & below Physical Exam Physical Exam: General: Grossly A&O. NAD. Cooperative. Frail/elderly appearing HEENT: Atraumatic, normocephalic. EOMI. Neg JVD. jugular vein seen just above clavicle at 35 deg bed elevation. Pulm: CTAB. -wheezes, -rales, -rhonchi. No respiratory distress. Soft/decreased breath sounds, limited by habitus/weakness. Cardiac: RRR. 3/6 systolic murmur. Mild lymphadematous appearance of BLE. Puffy appearance. Unable to palpate as patient is TTP to deep palpation. No edema at feet. Abdominal: Nontender, nondistended, soft. Results & Data Results & Data ([facility]) Vital Signs (Past 12 Hours) Vital Signs Temp low of 36.0. BPs 99/58, 100/51. 90-91 on RA. Telemetry 60s-70s w/ lows of 50s. Temp Pulse Pulse Resp BP BP Pulse Ox 06/19/21 03:05 36.0 C L 68 18 100/62 91 06/19/21 00:34 55 L 06/18/21 23:09 36.9 C 67 18 99/58 L 94 06/18/21 19:48 36.4 C L 81 20 120/79 90 Laboratory Results cbc stable. Hb 14.3. BMP reviewed. Cr 1.16 baseline ->1.29. BUN/Cr 17.7->45.8H. 03/29/21 BNP 2593. Diagnostic Findings No new imaging. Resident Activity Tracking Resident Involvement: Resident Care Provided Care Provided: [facility] Medicine
[2021-06-19 07:00] LABS: Hematocrit (blood only) 42.6 % (37-47); Hemoglobin 14.3 g/dL (12.0-16.0); Mean Corpuscular Hemoglobin 31.5 pg (25-34); Mean Corpuscular Hgb Conc 33.6 g/dL (32-36); Mean Corpuscular Volume 93.8 fL (80-100); Mean Platelet Volume 12.2 fL (7.4-10.4); Platelet Count 167 K/uL (130-400); RDW Coefficient of Variation 13.3 % (11.5-14.5); RDW Standard Deviation 45.9 fL (36.4-46.3); Red Blood Count 4.54 M/uL (4.2-5.4); White Blood Count 4.91 K/uL (4.8-10.8)
[2021-06-19 07:31] LABS: BUN Creatinine Ratio 45.8 (10-20); Calcium 9.4 mg/dl (8.5-10.1); Creatinine Clr Calc Pharmacy 33.3 ml/min; Est GFR (African American) 42.5 ml/min; Est GFR (Non-African American) 36.7 ml/min; Potassium 4.6 mmol/L (3.5-5.1)
[2021-06-19] MEDS: CYANOCOBALAMIN 500 MCG TABLET (VITAMIN B-12) PO SCH (09:22)
[2021-06-19] MEDS: LOSARTAN POTASSIUM 50 MG TAB PO SCH (09:22)
[2021-06-19] MEDS: CHOLECALCIFEROL 1,000 UNITS 25 MCG TAB PO SCH (09:22)
[2021-06-19] MEDS: ASPIRIN 81 MG ECTAB PO SCH (09:23)
[2021-06-19] MEDS: HEPARIN SOD 5,000 UNIT/0.5 ML VIAL SQ SCH ×2 (09:25→21:18)
[2021-06-19] MEDS: GABAPENTIN 300 MG CAP PO SCH ×2 (09:25→21:14)
[2021-06-19] MEDS: SENNA 8.6 MG TAB PO SCH (09:26)
[2021-06-19] MEDS: TIMOLOL GFS 0.5% OPH SOLN 74 DROPS/5 ML BTL OPB SCH (09:26)
[2021-06-19] MEDS: TIMOLOL GFS 0.5% OPH SOLN 74 DROPS/5 ML BTL OPL SCH (21:18)
[2021-06-20] MEDS: POLYETHYLENE (MIRALAX) 17 GM PACK PO SCH ×4 (00:24→09:10)
[2021-06-20 07:04] LABS: Basophils # (auto) 0.02 K/uL (0-0.2); Basophils % (auto) 0.4 %; Eosinophils # (auto) 0.11 K/uL (0-0.5); Eosinophils % (auto) 2.4 %; Hematocrit (blood only) 42.8 % (37-47); Hemoglobin 14.3 g/dL (12.0-16.0); Immature Granulocytes # (auto) 0.01 K/uL (0.00-0.02); Immature Granulocytes % (auto) 0.2 %; Lymphocytes # (auto) 1.77 K/uL (1.2-3.4); Lymphocytes % (auto) 38.6 %; Mean Corpuscular Hemoglobin 31.5 pg (25-34); Mean Corpuscular Hgb Conc 33.4 g/dL (32-36); Mean Corpuscular Volume 94.3 fL (80-100); Mean Platelet Volume 12.1 fL (7.4-10.4); Monocytes # (auto) 0.52 K/uL (0.11-0.59); Monocytes % (auto) 11.3 %; Neutrophils # (auto) 2.16 K/uL (1.4-6.5); Neutrophils % (auto) 47.1 %; Platelet Count 158 K/uL (130-400); RDW Coefficient of Variation 13.2 % (11.5-14.5); RDW Standard Deviation 45.9 fL (36.4-46.3); Red Blood Count 4.54 M/uL (4.2-5.4); White Blood Count 4.59 K/uL (4.8-10.8)
[2021-06-20 07:45] LABS: BUN Creatinine Ratio 44.7 (10-20); Calcium 9.2 mg/dl (8.5-10.1); Creatinine Clr Calc Pharmacy 37.2 ml/min; Est GFR (African American) 48.9 ml/min; Est GFR (Non-African American) 42.2 ml/min; Potassium 4.3 mmol/L (3.5-5.1)
[2021-06-20] MEDS: CYANOCOBALAMIN 500 MCG TABLET (VITAMIN B-12) PO SCH (09:08)
[2021-06-20] MEDS: GABAPENTIN 300 MG CAP PO SCH ×2 (09:08→19:33)
[2021-06-20] MEDS: ASPIRIN 81 MG ECTAB PO SCH (09:08)
[2021-06-20] MEDS: CHOLECALCIFEROL 1,000 UNITS 25 MCG TAB PO SCH (09:09)
[2021-06-20] MEDS: HEPARIN SOD 5,000 UNIT/0.5 ML VIAL SQ SCH ×2 (09:09→19:33)
[2021-06-20] MEDS: SENNA 8.6 MG TAB PO SCH (09:14)
[2021-06-20] MEDS: TIMOLOL GFS 0.5% OPH SOLN 74 DROPS/5 ML BTL OPB SCH (09:14)
[2021-06-20] MEDS ORDERED: POLYETHYLENE (MIRALAX) 17 GM PACK PO PRN (10:43)
[2021-06-20] MEDS ORDERED: SENNA 8.6 MG TAB PO PRN (10:43)
--- NOTE | 2021-06-20 13:34 | Hospitalist Progress Note ---
Date of Service June 20, 2021 Assessment & Plan (1) Physical deconditioning: Plan: Patient was admitted to the hospital on account of progressive weakness. No infectious etiology found Her weakness most likely due to physical deconditioning Working with Physical therapy, she is a 1 person assist Plan is snf for physical rehabilitation (2) CHF (congestive heart failure): Plan: Appears compensated Continue home medications monitor I/O, daily weights (3) Subclinical hypothyroidism: Plan: continue home med (4) Morbid obesity with BMI of 40.0-44.9, adult: Plan: patient was advised on diet and exercise (5) Arthritis: Plan: prn pain medication Admission and Anticipated Discharge Date Admission Date: June 12, 2021 discharge to snf when accepted Subjective patient seen and examine this morning, sitting up in the chair Review of Systems Review of Systems: All systems reviewed are negative, apart from the ones contained in the history. Physical Exam Physical Exam: The patient is awake, alert and oriented 3, well developed and well nourished, normocephalic and atraumatic, lying in bed and in no acute distress. HEENT--PERRL, EOMI, mucous membranes and oropharynx mildly dry Neck--supple. No JVD. No bruits. Thyroid normal, trachea midline, no adenopathy. Heart--normal S1 and S2. No murmurs, rubs or gallops. Lungs--clear bilaterally, no respiratory distress, no accessory muscle use. Abdomen--normal bowel sounds and soft. Mild epigastric and left sided abdominal pain Extremities--no cyanosis or clubbing. No edema. Dermatologic--normal skin turgor, normal color, no abnormal lymph nodes, no rash. Neurologic--cranial nerves II through XII grossly intact. Rheumatologic--normal range of motion. Psychiatric--normal affect. Results & Data Results & Data ([facility]) Vital Signs (Past 12 Hours) Vital Signs Temp Pulse Resp BP BP Pulse Ox 06/20/21 11:22 98.1 F 68 20 110/69 93 06/20/21 11:15 97.7 F 115 H 16 115/74 96 06/20/21 07:46 97.3 F L 57 L 20 120/74 94 06/20/21 02:54 97.5 F L 61 18 96/53 L 92 PG Care Time/CCT Total # of Minutes Spent Total Time Spent with Patient: Total time spent is greater than 50% in coordination of care (as documented) at patient's floor/unit and/or counseling patient: Coding Level of Care Code 06861 Subseq Hosp Care Lvl 2 Diagnoses Physical deconditioning R53.81 CHF (congestive heart failure) I50.9 Subclinical hypothyroidism E03.8 Morbid obesity with BMI of 40.0-44.9, adult E66.01; Z68.41 Arthritis M19.90 Time Spent (min) 35
[2021-06-20] MEDS: TIMOLOL GFS 0.5% OPH SOLN 74 DROPS/5 ML BTL OPL SCH (19:33)
[2021-06-21] MEDS: ASPIRIN 81 MG ECTAB PO SCH (07:51)
[2021-06-21] MEDS: CYANOCOBALAMIN 500 MCG TABLET (VITAMIN B-12) PO SCH (07:51)
[2021-06-21] MEDS: GABAPENTIN 300 MG CAP PO SCH ×2 (07:51→20:22)
[2021-06-21] MEDS: CHOLECALCIFEROL 1,000 UNITS 25 MCG TAB PO SCH (07:51)
[2021-06-21] MEDS: TIMOLOL GFS 0.5% OPH SOLN 74 DROPS/5 ML BTL OPB SCH (08:52)
[2021-06-21] MEDS: HEPARIN SOD 5,000 UNIT/0.5 ML VIAL SQ SCH ×2 (08:53→20:22)
--- NOTE | 2021-06-21 12:21 | Hospitalist Progress Note ---
Date of Service June 21, 2021 Assessment & Plan (1) Physical deconditioning: Plan: Patient was admitted to the hospital on account of progressive weakness. No infectious etiology found Her weakness most likely due to physical deconditioning Working with Physical therapy, she is a 1 person assist Plan is snf for physical rehabilitation when accepted patient is medically stable for discharge torehab (2) CHF (congestive heart failure): Plan: Appears compensated Continue home medications monitor I/O, daily weights (3) Subclinical hypothyroidism: Plan: continue home med (4) Morbid obesity with BMI of 40.0-44.9, adult: Plan: patient was advised on diet and exercise (5) Arthritis: Plan: prn pain medication Admission and Anticipated Discharge Date Admission Date: June 12, 2021 Subjective patient seen and examine this morning, sitting up in the chair, worked with PT yesterday Review of Systems Review of Systems: All systems reviewed are negative, apart from the ones contained in the history. Physical Exam Physical Exam: The patient is awake, alert and oriented 3, well developed and well nourished, normocephalic and atraumatic, lying in bed and in no acute distress. HEENT--PERRL, EOMI, mucous membranes and oropharynx mildly dry Neck--supple. No JVD. No bruits. Thyroid normal, trachea midline, no adenopathy. Heart--normal S1 and S2. No murmurs, rubs or gallops. Lungs--clear bilaterally, no respiratory distress, no accessory muscle use. Abdomen--normal bowel sounds and soft. Mild epigastric and left sided abdominal pain Extremities--no cyanosis or clubbing. No edema. Dermatologic--normal skin turgor, normal color, no abnormal lymph nodes, no rash. Neurologic--cranial nerves II through XII grossly intact. Rheumatologic--normal range of motion. Psychiatric--normal affect. Results & Data Results & Data ([facility]) Vital Signs (Past 12 Hours) Vital Signs Temp Pulse Pulse Resp BP BP Pulse Ox 06/21/21 11:22 98.1 F 73 18 126/77 94 06/21/21 07:42 97.9 F 69 20 138/81 93 06/21/21 07:00 57 L 06/21/21 04:53 97.3 F L 60 18 103/68 91 06/21/21 01:14 55 L PG Care Time/CCT Total # of Minutes Spent Total Time Spent with Patient: Total time spent is greater than 50% in coordination of care (as documented) at patient's floor/unit and/or counseling patient: Coding Level of Care Code 25513 Subseq Hosp Care Lvl 2 Diagnoses Physical deconditioning R53.81 CHF (congestive heart failure) I50.9 Subclinical hypothyroidism E03.8 Morbid obesity with BMI of 40.0-44.9, adult E66.01; Z68.41 Arthritis M19.90 Time Spent (min) 35
[2021-06-21] MEDS: TIMOLOL GFS 0.5% OPH SOLN 74 DROPS/5 ML BTL OPL SCH (20:22)
[2021-06-21] MEDS: ACETAMINOPHEN 325 MG TAB PO PRN (22:37)
[2021-06-22 07:54] LABS: Hematocrit (blood only) 41.2 % (37-47); Hemoglobin 13.7 g/dL (12.0-16.0); Mean Corpuscular Hemoglobin 31.6 pg (25-34); Mean Corpuscular Hgb Conc 33.3 g/dL (32-36); Mean Corpuscular Volume 95.2 fL (80-100); Mean Platelet Volume 12.1 fL (7.4-10.4); Platelet Count 155 K/uL (130-400); RDW Coefficient of Variation 13.1 % (11.5-14.5); RDW Standard Deviation 45.5 fL (36.4-46.3); Red Blood Count 4.33 M/uL (4.2-5.4); White Blood Count 4.98 K/uL (4.8-10.8)
[2021-06-22 08:27] LABS: BUN Creatinine Ratio 40.4 (10-20); Calcium 9.1 mg/dl (8.5-10.1); Creatinine Clr Calc Pharmacy 36.8 ml/min; Est GFR (African American) 48.3 ml/min; Est GFR (Non-African American) 41.7 ml/min
[2021-06-22] MEDS: TIMOLOL GFS 0.5% OPH SOLN 74 DROPS/5 ML BTL OPB SCH (09:11)
[2021-06-22] MEDS: ASPIRIN 81 MG ECTAB PO SCH (09:11)
[2021-06-22] MEDS: GABAPENTIN 300 MG CAP PO SCH ×2 (09:11→20:20)
[2021-06-22] MEDS: CHOLECALCIFEROL 1,000 UNITS 25 MCG TAB PO SCH (09:11)
[2021-06-22] MEDS: HEPARIN SOD 5,000 UNIT/0.5 ML VIAL SQ SCH ×2 (09:11→20:20)
[2021-06-22] MEDS: CYANOCOBALAMIN 500 MCG TABLET (VITAMIN B-12) PO SCH (09:11)
--- NOTE | 2021-06-22 17:18 | Hospitalist Progress Note ---
Date of Service June 22, 2021 Assessment & Plan (1) Physical deconditioning: Plan: Patient was admitted to the hospital on account of progressive weakness. No infectious/metabolic etiology found Her weakness most likely due to physical deconditioning Continue with PT/OT eval and treat Anticipate SNF with rehab emphasis once bed available (2) CHF (congestive heart failure): Plan: Appears compensated Continue home medications For clarification HFpEF (3) Subclinical hypothyroidism: Plan: continue home med (4) Morbid obesity with BMI of 40.0-44.9, adult: (5) Arthritis: Plan: prn pain medication Admission and Anticipated Discharge Date Admission Date: June 12, 2021 Subjective No new complaints. No chest pain no shortness of breath. No acute issues at all. Confirmed with patient that she basically got weaker at home, and is now here pending placement for rehab/therapy/strengthening Review of Systems Review of Systems: All systems reviewed & are unremarkable except as noted in HPI & below Physical Exam Physical Exam: In general she is awake and alert pleasant no distress. HEENT normocephalic atraumatic mucous membranes moist. Breathing unlabored no ac cessory muscle use good effort. Skin shows no rashes no pallor or icterus. Results & Data Results & Data ([facility]) Vital Signs (Past 12 Hours) Vital Signs Temp Pulse Pulse Resp BP Pulse Ox 06/22/21 15:24 67 06/22/21 15:08 98.4 F 71 20 139/78 90 06/22/21 07:20 97.9 F 61 20 117/63 92 06/22/21 07:00 56 L PG Care Time/CCT Total # of Minutes Spent Total Time Spent with Patient: Total time spent is greater than 50% in coordination of care (as documented) at patient's floor/unit and/or counseling patient: Coding Level of Care Code 94753 Subseq Hosp Care Lvl 1 Diagnoses Physical deconditioning R53.81 CHF (congestive heart failure) I50.9 Subclinical hypothyroidism E03.8 Morbid obesity with BMI of 40.0-44.9, adult E66.01; Z68.41 Arthritis M19.90
[2021-06-22] MEDS: TIMOLOL GFS 0.5% OPH SOLN 74 DROPS/5 ML BTL OPL SCH (20:20)
[2021-06-22] MEDS: ACETAMINOPHEN 325 MG TAB PO PRN (21:06)
[2021-06-23] MEDS: ACETAMINOPHEN 325 MG TAB PO PRN ×2 (02:02→21:34)
[2021-06-23] MEDS: CHOLECALCIFEROL 1,000 UNITS 25 MCG TAB PO SCH (08:30)
[2021-06-23] MEDS: CYANOCOBALAMIN 500 MCG TABLET (VITAMIN B-12) PO SCH (08:31)
[2021-06-23] MEDS: GABAPENTIN 300 MG CAP PO SCH ×2 (08:31→21:34)
[2021-06-23] MEDS: ASPIRIN 81 MG ECTAB PO SCH (08:31)
[2021-06-23] MEDS: TIMOLOL GFS 0.5% OPH SOLN 74 DROPS/5 ML BTL OPB SCH (08:32)
[2021-06-23] MEDS: HEPARIN SOD 5,000 UNIT/0.5 ML VIAL SQ SCH ×2 (08:32→21:34)
--- NOTE | 2021-06-23 20:15 | Hospitalist Progress Note ---
Date of Service June 23, 2021 Assessment & Plan (1) Physical deconditioning: Plan: Patient was admitted to the hospital on account of progressive weakness. No infectious/metabolic etiology found Her weakness most likely due to physical deconditioning Continue with PT/OT eval and treat For SNF/subacute rehab tomorrow (2) CHF (congestive heart failure): Plan: Appears compensated Continue home medications For clarification HFpEF (3) Subclinical hypothyroidism: Plan: continue home med (4) Morbid obesity with BMI of 40.0-44.9, adult: (5) Arthritis: Plan: prn pain medication [facility]: [facility] 1030a Admission and Anticipated Discharge Date Admission Date: June 12, 2021 Subjective No new complaints. [facility] tomorrow morning. Daughter at the bedside when I see patient Review of Systems Review of Systems: All systems reviewed & are unremarkable except as noted in HPI & below Physical Exam Physical Exam: General she is awake and alert pleasant no distress. HEENT normocephalic atraumatic mucous membranes moist. Breathing unlabored no accessory muscle use good effort. Skin shows no rashes no pallor or icterus. Neuro without focal deficits. Results & Data Results & Data ([facility]) Vital Signs (Past 12 Hours) Vital Signs Temp Pulse Resp BP Pulse Ox 06/23/21 15:54 97.9 F 66 16 141/76 H 93 PG Care Time/CCT Total # of Minutes Spent Total Time Spent with Patient: Total time spent is greater than 50% in coordination of care (as documented) at patient's floor/unit and/or counseling patient: Coding Level of Care Code 80310 Subseq Hosp Care Lvl 1 Diagnoses Physical deconditioning R53.81 CHF (congestive heart failure) I50.9 Subclinical hypothyroidism E03.8 Morbid obesity with BMI of 40.0-44.9, adult E66.01; Z68.41 Arthritis M19.90
[2021-06-23] MEDS: TIMOLOL GFS 0.5% OPH SOLN 74 DROPS/5 ML BTL OPL SCH (21:34)
[2021-06-24] MEDS: TIMOLOL GFS 0.5% OPH SOLN 74 DROPS/5 ML BTL OPB SCH (07:42)
[2021-06-24] MEDS: ASPIRIN 81 MG ECTAB PO SCH (07:42)
[2021-06-24] MEDS: CYANOCOBALAMIN 500 MCG TABLET (VITAMIN B-12) PO SCH (07:42)
[2021-06-24] MEDS: HEPARIN SOD 5,000 UNIT/0.5 ML VIAL SQ SCH (07:43)
[2021-06-24] MEDS: CHOLECALCIFEROL 1,000 UNITS 25 MCG TAB PO SCH (07:43)
[2021-06-24] MEDS: GABAPENTIN 300 MG CAP PO SCH (07:43)
[2021-06-24] MEDS: ACETAMINOPHEN 325 MG TAB PO PRN (07:46)
--- NOTE | 2021-06-24 10:40 | Discharge Summary ---
Date of Service date of admission - June 12, 2021 date of discahrge - June 24, 2021 Admission HPI Per Admitting Provider 89 yo female rcomes into the hospital with a 1 week history of intermittent confusion and weakness. Her weakness has appeared to have worsened today. Patient llives in a trailer with her grandson, however her daughter has been visiting and making sure she takes her medications. However, about 2 weeks ago for a 7 day period, her daughter was not able to vi sit due to a COVID close contact. The daughter is unsure if she has been taking her medications during this time. Normally the patient is able to ambulate short distances in her trailer with a walker, up to about 5-6 steps. However today, she was unable to get out f bed. Her daughter mentions she has a chronic lower back problem in which she followed with [facility] duval [facility]/, but she does not recall the doctor, she was seeing. Thinks it started with a letter Z. She reports this week, during an episode of intermittent confusion, she mistook a chair for a bedside commode and relieved herself. This is something she normally does not do. During her last hospital stay in April, she had a diagnosis of deconditioning. She however has been active at home since. Even though her baseline is somewhat limited as mentioned above. Her daughter was sure this was a UTI and is surprised but was relieved her UA is negative. Principal Diagnosis 1. deconditioning 2. chronic diastolic CHF Discharge Exam gen - NAD, obese, pleasant mouth - MMM neck - no JVD heart - RRR, s1 s2, no murmur lungs - CTA b/l abd - soft, NT, ND, BS+ ext - pulses 2+ b/l psych - a/o x 3 musculo - strength 5/5 x 4 extremities; no proximal muscle weakness of arms/legs Discharge Data Allergies Allergy/AdvReac Type Severity Reaction Status Date / Time Sulfa (Sulfonamide Allergy Intermediate HIVES Verified 04/06/21 11:15 Antibiotics) nitrofurantoin AdvReac Severe tachycardia Verified 04/06/21 11:15 [From Macrobid] (led to diastolic chf episode) indomethacin AdvReac Intermediate SEVERE Verified 06/12/21 11:58 HEADACHE Consultations PT, OT Speech therapy Ordered Studies Chest X-Ray 06/12/21 06:02 XR chest 1V portable CLINICAL HISTORY: weakness. Evaluate cardiopulmonary status COMPARISON STUDY: 03/21/2021 TECHNIQUE: 1 view of the chest FINDINGS: Single frontal view of the chest demonstrates the heart to again be moderately to markedly enlarged. Retrocardiac density is again seen on the left. The remainder of the lungs are clear of alveolar opacities. There is no evidence for pleural effusion. There is no evidence for vascular congestion. There is no acute osseous pathology. IMPRESSION: Moderate to marked cardiomegaly with persistent retrocardiac density on the left. ACT 112: Negative or not required by law. Electronically signed by: Luis Wahl M.D. 06/12/2021 9:[address] 06/12/21 06:48 CT head/brain wo con CLINICAL HISTORY: weakness Technique: Contiguous axial CT images of the head were acquired from the base of the skull to the vertex without intravenous contrast administration. Images were viewed in brain, subdural and bone windows. Automated dose lowering techniques and/or adjustment according to patient size were utilized for this exam. Comparison: Comparison is made to CT head 10/31/2020 Findings: Areas of decreased attenuation are present in the periventricular and subcortical white matter bilaterally consistent with small vessel ischemic disease. Generalized cerebral atrophy with commensurate enlargement of the ventricles, sulci, and cisterns is also present. There is no acute intracranial hemorrhage or evidence of acute territorial infarction. No shift of the midline structures, mass effect, or extra-axial abnormalities are shown. Atherosclerotic calcifications are present in the intracranial segments of the internal carotid arteries. Imaged portions of the paranasal sinuses and mastoid air cells are clear. The orbits appear normal. There are no acute fractures of the calvaria or scalp swelling. Impression: No acute intracranial hemorrhage, no evidence of acute territorial infarction or other acute intracranial disease process. ACT 112: Negative or not required by law. Electronically signed by: Adiel Sr M.D. 06/12/2021 8:47 AM Hospital Course (1) Physical deconditioning: Patient was admitted to the hospital on account of progressive weakness. No infectious/metabolic etiology was found. Her weakness was felt to be most likely due to physical deconditioning. Was evaluated by PT/OT and both advised SNF for rehab. (2) CHF (congestive heart failure): Chronic diastolic CHF. Compensated while here. Recommend daily weights while at SNF. (3) Subclinical hypothyroidism: TSH mildly elevated; FT4 preserved. Advise repeat TSH in 1-2 weeks. If still high could consider replacement. (4) Morbid obesity with BMI of 40.0-44.9, adult: BMI 41 (5) Arthritis: prn pain medication for such no evidence of any primary muscle disorder (myositis, PMR, etc) on exam no focal findings to suggest stroke - CT head negative (6) Hiatal hernia: large based on prior CT scanning at risk of chronic reflux from such recommend daily proton pump inhibitor (7) Recurrent UTI: recommend continued use of methenamine prophylaxis twice daily (8) HTN (hypertension): The patient's blood pressure medications were held at time of admission. She had been taking losartan, metoprolol succinate, and triamterene/HCTZ. It was felt that perhaps her blood pressure medications were contributing to her weakness. Her pulse was noted to be in the low 50s at time of admission thus would not advise resuming her beta kendal if blood pressure medication is needed after discharge. Favor resuming her losartan or diuretic if BP control is needed. Total Time Total Time Spent Total Time Spent (In Minutes): 25 Discharge Plan Discharge Items Patient Disposition: Transfer Inpatient Rehab Fac Reason For Visit: WEAKNESS Discharge Diagnosis: weakness/deconditioning Activity: Per Instructions section Activity Comment: per PT/OT at SNF Non-emergency contact: Primary Care Provider Call non-emergency contact if: you have any medication questions, your symptoms worsen and you have a fever Follow-up/Referrals: Consuelo Ambriz MD [Primary Care Provider] - Diet: Heart Healthy Addtl Attending Provider Instructions: 1. ongoing PT/OT eval and treat. 2. CBC, BMP, sed rate, CRP, and magnesium level in 2-3 days for stability. 3. currently holding metoprolol, losartan, and dyazide out of concern they may have been contributing to her weakness. Further, her heart rates have been about 60 (off the metoprolol). Her BPs have been relatively stable/controlled without the above medications. 4. TSH and Free T4 in 1 week - her TSH here was mildly abnormal (TSH was 4.7 - modestly high); rule out developing hypothyroidism. If TSH continues to remain elevated consider synthroid replacement. 5. patient has a large hiatal hernia - would keep on protonix indefinitely. 6. patient has past history of diastolic congestive heart failure. If possible please weigh patient daily (every morning) on standing scale. If any weight gain of more than 2-3 pounds in 1-2 days or 5 pounds in 5 days please inform medical safety director. Pending Studies at Discharge: No Stand-Alone Forms: My [facility] Skilled Items Patient informed of condition?: Yes DNR: Yes Discharge Level of Care: Skilled Communicable Disease: No Discharge Prognosis: Improving Lines: None Urinary Catheter: No Medications and DC Order Prescriptions: New pantoprazole [Protonix] 40 mg tablet,delayed release (DR/EC) 40 mg PO QAM Qty: 30 RF: 5 thiamine HCl (vitamin B1) 100 mg tablet 200 mg PO BID 30 Days Qty: 120 RF: 0 Continued aspirin 81 mg tablet,delayed release (DR/EC) 81 mg PO QAM RF: 0 krill oil 500 mg capsule 500 mg PO QAM RF: 0 cholecalciferol (vitamin D3) 50 mcg (2,000 unit) capsule 50 mcg PO DAILY RF: 0 Lacto.acidophilus-Bif.animalis 1.5 billion cell tablet,chewable 1 tab PO DAILY RF: 0 methenamine hippurate 1 gram tablet 1 g PO Q12H Qty: 60 RF: 6 timolol maleate 0.5 % gel forming solution 1 drp OPB QAM RF: 0 timolol maleate 0.5 % gel forming solution 1 drp OPL HS RF: 0 cyanocobalamin (vitamin B-12) 500 mcg tablet 500 mcg PO DAILY Qty: 30 RF: 0 gabapentin 300 mg capsule 300 mg PO AMPM RF: 0 Discontinued ciprofloxacin HCl [Cipro] 250 mg tablet 250 mg PO BID Qty: 10 RF: 0 triamterene-hydrochlorothiazid 37.5-25 mg capsule 1 cap PO QAM RF: 0 metoprolol succinate 50 mg tablet extended release 24 hr 25 mg PO QAM Qty: 90 RF: 3 losartan 100 mg tablet 50 mg PO QAM Qty: 90 RF: 3 Discharge Orders: Discharge Order (Routine); Ordered 06/24/21 Ordered By: Brendan Rodriguez Admission Data Admit Date/Time: 06/12/21 11:42 Attending Provider: Brendan Rodriguez Admit Provider: Rivera Elkins Primary Care Provider: Consuelo Ambriz Other Providers: Felice Castro ; Rivera Elkins ; Joey Marcum at [place] Coding Level of Care Code D/C DAY MANAGEMENT <30 MINS Diagnoses Physical deconditioning R53.81 CHF (congestive heart failure) I50.9 Subclinical hypothyroidism E03.8 Morbid obesity with BMI of 40.0-44.9, adult E66.01; Z68.41 Arthritis M19.90 Hiatal hernia K44.9 Recurrent UTI N39.0 HTN (hypertension) I10 Hypertension type: unspecified
== END 2021-06-24 11:01 | DRG 948 ==
LOC: ED 05:40 → SUATTDRO 11:42 → EDINP 11:42 → 2N 06-13 11:25 → 3N 06-22 22:37